=== PATIENT | female | born 1960 | race Caucasian/White ===

== ENCOUNTER → 2017-01-31 | Outpatient (REF) | payer OTHER ==
[~2017-01-31] MED LIST: ASPI81TA85 PO
[2017-01-31 11:49] LABS: ALBUMIN 3.9 GM/DL (3.2-5.2); ALBUMIN/GLOBULIN RATIO 1.05 (1.00-1.93); ALKALINE PHOSPHATASE 134 U/L (45-117); ALT/SGPT 33 U/L (12-78); ANION GAP 8 MEQ/L (8-16); AST/SGOT 20 U/L (15-37); BILIRUBIN,TOTAL 0.3 MG/DL (0.2-1.0); BLOOD UREA NITROGEN 19 MG/DL (7-18); CALCIUM LEVEL 9.1 MG/DL (8.5-10.1); CARBON DIOXIDE LEVEL 29 MEQ/L (21-32); CHLORIDE LEVEL 107 MEQ/L (98-107); CHOLESTEROL LEVEL 263 MG/DL (<200); CREATININE FOR GFR 0.97 MG/DL (0.55-1.02); GLOMERULAR FILTRATION RATE > 60.0 (>51); GLUCOSE, FASTING 76 MG/DL (70-105); POTASSIUM SERUM 4.4 MEQ/L (3.5-5.1); SODIUM LEVEL 144 MEQ/L (136-145); TOTAL PROTEIN 7.6 GM/DL (6.4-8.2); TRIGLYCERIDES LEVEL 169 MG/DL (<150)
[2017-01-31 12:14] LABS: MEAN CORPUSCULAR HEMOGLOBIN 32.6 pg (27.0-33.0); MEAN CORPUSCULAR HGB CONC 34.6 g/dl (32.0-36.5); MEAN CORPUSCULAR VOLUME 94.2 fl (80.0-96.0); RED CELL DISTRIBUTION WIDTH 12.2 % (11.5-14.5); WHITE BLOOD COUNT 5.4 K/mm3 (4.0-10.0)
== END ==
LOC: M SFHCLERA 08:52
PROVIDERS: ATTEND Family Medicine
DX: Z00.00 Encounter for general adult medical examination without abnormal findings (principal)

== ENCOUNTER 2017-12-21 07:28 | Day surgery (SDC) | payer OTHER ==
[~2017-12-21 07:28] MED LIST changes: +ACETAMINOPHEN 325 MG TAB PO; -ASPI81TA85 PO; +MIDAZOLAM INJ 2 MG/2 ML VIAL (J2250) As Ordered; +PHENYLEPHRINE HCL 10 % OPHTH. SOL 5ML OD; +PROPARACAINE 0.5% OPHTH SOL 15ML OD; +fentaNYL 100 MCG/2 ML INJECTION (J3010) As Ordered
[2017-12-21] MEDS ORDERED: PHENYLEPHRINE 2.5% OPHTH SOL 2ML As Ordered (07:37)
[2017-12-21] MEDS ORDERED: OFLOXACIN 0.3 % (OCUFLOX) OPTH SOL 5ML As Ordered (07:37)
[2017-12-21] MEDS ORDERED: CYCLOPENTOLATE 2% OPHTH SOLN 2ML BTL As Ordered (07:37)
[2017-12-21] MEDS ORDERED: TROPICAMIDE 1% OPHTH SOLN 2ML As Ordered (07:38)
[2017-12-21] MEDS: LIDOCAINE 3.5 % 1ML OPHTH TOPICAL GEL OU (07:47)
[2017-12-21] MEDS: PHENYLEPHRINE 2.5% OPHTH SOL 2ML OD (07:52)
[2017-12-21] MEDS: OFLOXACIN 0.3 % (OCUFLOX) OPTH SOL 5ML OD (07:52)
[2017-12-21] MEDS: TROPICAMIDE 1% OPHTH SOLN 2ML OD (07:54)
[2017-12-21] MEDS: CYCLOPENTOLATE 2% OPHTH SOLN 2ML BTL OD (07:54)
[2017-12-21] MEDS: POVIDONE-IODINE 5% OPHTH PREP SOL 30ML As Ordered (08:37)
[2017-12-21] MEDS: BSS with VANC/TOB/EPI for EYE CASES IR (08:43)
[2017-12-21] MEDS: TRYPAN BLUE 0.06 % 2.25 ML OPHTH SYR (VISIONBLUE) As Ordered (08:43)
[2017-12-21] MEDS: TRIAMCINOLONE PRES FR 40 MG/ML 1ML(TRIESENCE)(OR EYE ONLY)(J3300 PER 1MG) As Ordered (08:45)
[2017-12-21] MEDS: HEALON DUET (HEALON 10MG/ML 0.55ML & HEALON ENDOCOAT 30MG/ML 0.85ML) As Ordered ×2 (08:45→08:56)
[2017-12-21] MEDS: LIDOCAINE 1% SDV 5 ML VIAL As Ordered (08:45)
[2017-12-21] MEDS: MOXIFLOXACIN IN BSS 0.25MG/0.25ML INTRACAMERAL INJ (OR EYE ONLY)(J2280) As Ordered (08:46)
[2017-12-21] MEDS: BALANCED SALT IRRIGATION SOL 500ML GLASS BOTTLE (FOR OR EYE COMPOUND) As Ordered (09:00)
[2017-12-21] MEDS ORDERED: KETOROLAC 0.5% OPHTH SOLN OD (09:30)
[2017-12-21] MEDS ORDERED: TRIMETHOBENZAMIDE 300 MG CAP PO (09:30)
[2017-12-21] MEDS: AcetaZOLAMIDE 500 MG ER CAP PO (09:40)
== END 2017-12-21 10:05 | disposition home or self-care (01) ==
LOC: M SDC 07:28
DX: H26.101 Unspecified traumatic cataract, right eye (principal); H21.41 Pupillary membranes, right eye; H21.501 Unspecified adhesions of iris, right eye; E78.2 Mixed hyperlipidemia; M54.5 Low back pain; J30.9 Allergic rhinitis, unspecified; R00.2 Palpitations; Z87.891 Personal history of nicotine dependence; Z98.51 Tubal ligation status; Z86.19 Personal history of other infectious and parasitic diseases; Z78.0 Asymptomatic menopausal state
CPT/HCPCS: 66982

== ENCOUNTER 2018-04-12 10:03 | Day surgery (SDC) | payer OTHER ==
[~2018-04-12 10:03] MED LIST changes: -MIDAZOLAM INJ 2 MG/2 ML VIAL (J2250) As Ordered; -PHENYLEPHRINE HCL 10 % OPHTH. SOL 5ML OD; +PHENYLEPHRINE HCL 10 % OPHTH. SOL 5ML OS; -PROPARACAINE 0.5% OPHTH SOL 15ML OD; -fentaNYL 100 MCG/2 ML INJECTION (J3010) As Ordered
[2018-04-12] MEDS ORDERED: TROPICAMIDE 1% OPHTH SOLN 2ML As Ordered (10:07)
[2018-04-12] MEDS ORDERED: CYCLOPENTOLATE 2% OPHTH SOLN 2ML BTL As Ordered (10:07)
[2018-04-12] MEDS ORDERED: PHENYLEPHRINE 2.5% OPHTH SOL 2ML As Ordered (10:07)
[2018-04-12] MEDS ORDERED: OFLOXACIN 0.3 % (OCUFLOX) OPTH SOL 5ML As Ordered (10:07)
[2018-04-12] MEDS: PHENYLEPHRINE 2.5% OPHTH SOL 2ML OS (10:35)
[2018-04-12] MEDS: OFLOXACIN 0.3 % (OCUFLOX) OPTH SOL 5ML OS (10:35)
[2018-04-12] MEDS: CYCLOPENTOLATE 2% OPHTH SOLN 2ML BTL OS (10:35)
[2018-04-12] MEDS: TROPICAMIDE 1% OPHTH SOLN 2ML OS (10:35)
[2018-04-12] MEDS: LIDOCAINE 3.5 % 1ML OPHTH TOPICAL GEL OU (10:35)
[2018-04-12] MEDS ORDERED: PROPOFOL 200 MG/20 ML VIAL As Ordered (10:37)
[2018-04-12] MEDS ORDERED: fentaNYL 100 MCG/2 ML INJECTION (J3010) As Ordered (10:37)
[2018-04-12] MEDS ORDERED: MIDAZOLAM INJ 2 MG/2 ML VIAL (J2250) As Ordered (11:02)
[2018-04-12] MEDS: POVIDONE-IODINE 5% OPHTH PREP SOL 30ML As Ordered (11:22)
[2018-04-12] MEDS: LIDOCAINE 1% SDV 5 ML VIAL As Ordered (11:22)
[2018-04-12] MEDS: HEALON DUET (HEALON 10MG/ML 0.55ML & HEALON ENDOCOAT 30MG/ML 0.85ML) As Ordered (11:22)
[2018-04-12] MEDS: BSS with VANC/TOB/EPI for EYE CASES IR (11:29)
[2018-04-12] MEDS: MOXIFLOXACIN IN BSS 0.25MG/0.25ML INTRACAMERAL INJ (OR EYE ONLY)(J2280) As Ordered (11:29)
[2018-04-12] MEDS: TRIAMCINOLONE PRES FR 40 MG/ML 1ML(TRIESENCE)(OR EYE ONLY)(J3300 PER 1MG) As Ordered (11:29)
[2018-04-12] MEDS ORDERED: AcetaZOLAMIDE 500 MG ER CAP As Ordered (11:51)
[2018-04-12] MEDS: AcetaZOLAMIDE 500 MG ER CAP PO (12:05)
[2018-04-12] MEDS ORDERED: TRIMETHOBENZAMIDE 300 MG CAP PO (12:30)
== END 2018-04-12 12:30 | disposition home or self-care (01) ==
LOC: M SDC 10:03
DX: H25.9 Unspecified age-related cataract (principal); Z87.891 Personal history of nicotine dependence
CPT/HCPCS: 66984

== ENCOUNTER 2018-10-27 10:56 | Emergency (ER) | payer OTHER ==
[2018-10-27 11:33] LABS: BASO # 0.1 10^3/uL (0.0-0.2); BASO % 0.5 % (0.0-1.0); EOS # 0.1 10^3/uL (0.0-0.50); EOS % 0.7 % (0.0-3.0); HEMATOCRIT 43.9 % (36.0-47.0); HEMOGLOBIN 14.8 g/dl (12.0-15.5); IMMATURE GRANULOCYTE % 0.4 % (0-3.0); LYMPH # 1.3 10^3/uL (1.5-4.5); LYMPH % 11.5 % (24.0-44.0); MEAN CORPUSCULAR HEMOGLOBIN 32.3 pg (27.0-33.0); MEAN CORPUSCULAR HGB CONC 33.7 g/dl (32.0-36.5); MEAN CORPUSCULAR VOLUME 95.9 fl (80.0-96.0); MONO # 0.8 10^3/uL (0.0-0.8); MONO % 6.8 % (0.0-5.0); NEUTROPHILS # 8.9 10^3/uL (1.8-7.7); NEUTROPHILS % 80.1 % (36.0-66.0); PLATELET COUNT, AUTOMATED 279 10^3/uL (150-450); RED BLOOD COUNT 4.58 10^6/uL (4.00-5.40); RED CELL DISTRIBUTION WIDTH 12.4 % (11.5-14.5); WHITE BLOOD COUNT 11.2 10^3/uL (4.0-10.0)
[2018-10-27] MEDS: NS 500 ML IV (11:42)
[2018-10-27 11:44] LABS: ALBUMIN 3.9 GM/DL (3.2-5.2); ALBUMIN/GLOBULIN RATIO 0.95 (1.00-1.93); ALKALINE PHOSPHATASE 122 U/L (45-117); ALT/SGPT 37 U/L (12-78); ANION GAP 8 MEQ/L (8-16); AST/SGOT 19 U/L (7-37); BILIRUBIN,DIRECT < 0.1 MG/DL (0.0-0.2); BILIRUBIN,TOTAL 0.3 MG/DL (0.2-1.0); BLOOD UREA NITROGEN 15 MG/DL (7-18); CALCIUM LEVEL 9.1 MG/DL (8.8-10.2); CARBON DIOXIDE LEVEL 27 MEQ/L (21-32); CHLORIDE LEVEL 106 MEQ/L (98-107); CREATININE FOR GFR 1.21 MG/DL (0.55-1.30); GLOMERULAR FILTRATION RATE 48.3 (>45); GLUCOSE, FASTING 132 MG/DL (70-100); LIPASE 233 U/L (73-393); SODIUM LEVEL 141 MEQ/L (136-145)
[2018-10-27 11:53] LABS: BILIRUBIN, URINE MANUAL NEGATIVE (NEGATIVE); BLOOD URINE MANUAL RFX POSITIVE (NEGATIVE); GLUCOSE, URINE (UA) MANUAL NEGATIVE (NEGATIVE); KETONE, URINE MANUAL NEGATIVE (NEGATIVE); NITRITE, URINE MANUAL RFX NEGATIVE (NEGATIVE); PROTEIN, URINE MANUAL REFLEX NEGATIVE (NEGATIVE); UROBILINOGEN, URINE MANUAL NORMAL (NORMAL)
[2018-10-27 11:54] LABS: BACTERIA, URINE SMALL AMOUNT; HYALINE CAST, URINE NONE SEEN /lpf (0-1); MICROSCOPIC EXAM UNSPUN; SQUAMOUS EPITHELIAL CELL URINE SMALL AMOUNT /hpf (SMALL AMT)
[2018-10-27] MEDS ORDERED: DEXTROSE 50% 50 ML SYRINGE As Ordered (14:02)
== END 2018-10-27 14:48 | disposition home or self-care (01) ==
LOC: M ED 10:56
DX: N20.1 Calculus of ureter (principal); E78.5 Hyperlipidemia, unspecified; Z87.891 Personal history of nicotine dependence
CPT/HCPCS: 74176

== ENCOUNTER → 2018-11-02 | Outpatient (REF) | payer OTHER ==
[~2018-11-02] MED LIST changes: -ACETAMINOPHEN 325 MG TAB PO; +ASPI81TA85 PO; +FLOM0.4C39 PO; +MULT1TAB10 PO; +NORCOTAB PO; -PHENYLEPHRINE HCL 10 % OPHTH. SOL 5ML OS; +ZOFR4TAB14 PO
[2018-11-02 17:57] LABS: APPEARANCE, URINE HAZY (CLEAR); BACTERIA, URINE AUTO 1+ (NEGATIVE); BILIRUBIN, URINE AUTO NEGATIVE (NEGATIVE); BLOOD, URINE BLOOD NEGATIVE (NEGATIVE); COLOR, URINE YELLOW (YELLOW); GLUCOSE, URINE (UA) AUTO NEGATIVE (NEGATIVE); KETONE, URINE AUTO NEGATIVE (NEGATIVE); LEUKOCYTE ESTERASE, URINE AUTO 3+ (NEGATIVE); MUCUS, URINE SMALL (NEGATIVE); NITRITE, URINE AUTO NEGATIVE (NEGATIVE); PROTEIN, URINE AUTO NEGATIVE (NEGATIVE); RBC, URINE AUTO 1 /HPF (0-3); SPECIFIC GRAVITY URINE AUTO 1.016 (1.002-1.035); SQUAMOUS EPITHELIAL CELL UR AU 2 /HPF (0-6); UROBILINOGEN, URINE AUTO 0.2 mg/dL (0.0-2.0); WBC, URINE AUTO 16 /HPF (0-3)
== END ==
LOC: M SMT 17:07
PROVIDERS: ATTEND Nurse Practitioner Women's Health
DX: N13.2 Hydronephrosis with renal and ureteral calculous obstruction (principal)

== ENCOUNTER → 2019-03-20 | Outpatient (CLI) | payer OTHER ==
[~2019-03-20] MED LIST changes: +HYDR-3715 PO; -NORCOTAB PO
--- NOTE | 2019-03-21 03:12 | REP ---
Clinical: Left shoulder pain. Technique: Internal rotation, external rotation, and Y view of the left shoulder. Findings: Mild generalized age-related changes include subtle cortical irregularity and very minimal spurring at the acromioclavicular joint. The humeral joint appears intact and normal. Subacromial space measures 9 mm. No periarticular calcifications or loose bodies identified. Impression: Generalized age-related changes. Electronically Signed by Nabeel Bowden MD 03/21/2019 03:04 A
--- NOTE | 2019-03-21 03:18 | REP ---
Clinical: Left shoulder pain. Technique: AP and lateral views of the left humerus. Findings: Osseous structures, associated joint spaces, and surrounding soft tissues are normal for age. No acute fracture dislocation. Impression: No obvious acute fracture or dislocation. Electronically Signed by Nabeel Bowden MD 03/21/2019 03:09 A
== END ==
LOC: M RAD 12:25
PROVIDERS: ATTEND Nurse Practitioner Family
DX: M79.622 Pain in left upper arm (principal); M25.712 Osteophyte, left shoulder

== ENCOUNTER → 2019-05-09 | Outpatient (CLI) | payer OTHER ==
--- NOTE | 2019-05-09 10:31 | REPMRS ---
Patient History The patient states she had a clinical breast exam in 04/2019. Patient is postmenopausal. Family history of colorectal cancer at age 50 or over in paternal grandfather, colorectal cancer at age 50 or over in paternal uncle, unknown cancer at age 50 or over in paternal aunt, breast cancer at age 50 or over in sister. Took hormonal contraceptives for 5 years. Digital Woman Screen Mammo: May 09, 2019 - Exam #: [id number] Bilateral CC and MLO view(s) were taken. Technologist: Ruthann Holland, Technologist Prior study comparison: October 08, 2014, bilateral bilat screen digital mammo, performed at [facility] ([facility] FINDINGS: There are scattered fibroglandular densities. There has been no change in the appearance of the mammogram from the prior studies. There is a mild amount of scattered fibroglandular density which is fairly symmetric. There is no interval development of dominant mass, architectural distortion, or grouped microcalcification suggestive of malignancy. 3-D tomosynthesis shows no additional findings. Assessment: BI-RADS/ACR category 1 mammogram. Negative Mammogram. Recommendation Routine screening mammogram of both breasts in 1 year (for women over age 40). This patient's Lifetime Breast Cancer Risk is estimated at 11.8 %. This mammogram was interpreted with the aid of an FDA-approved computer-aided dectection system. Electronically Signed By: Terry Cortes MD 05/09/19 [id number]
== END ==
LOC: M WHC 09:35
PROVIDERS: ATTEND Nurse Practitioner Family
DX: Z12.31 Encounter for screening mammogram for malignant neoplasm of breast (principal); Z78.0 Asymptomatic menopausal state; Z80.0 Family history of malignant neoplasm of digestive organs; Z80.3 Family history of malignant neoplasm of breast; Z92.0 Personal history of contraception

== ENCOUNTER → 2019-05-09 | Outpatient (REF) | payer OTHER ==
[2019-05-15 14:31] LABS: HPV HYBRID CAPTURE II Negative (Negative)
== END ==
LOC: M SFHCWAGY 09:50
PROVIDERS: ATTEND Nurse Practitioner Women's Health
DX: Z12.4 Encounter for screening for malignant neoplasm of cervix (principal)

== ENCOUNTER → 2019-05-29 | Outpatient (REF) | payer MEDICAID ==
[~2019-05-29] MED LIST changes: +B-12100T2 PO; +CARD180C4 PO; +METO1TAB87 PO; +MULTCAP PO
[2019-05-29 16:40] LABS: ALBUMIN 3.8 GM/DL (3.2-5.2); BILIRUBIN,TOTAL 0.3 MG/DL (0.2-1.0); CALCIUM LEVEL 9.1 MG/DL (8.8-10.2); CREATININE FOR GFR 1.12 MG/DL (0.55-1.30); FREE T4 0.91 NG/DL (0.76-1.46); GLOMERULAR FILTRATION RATE 52.8 (>45); THYROID STIMULATING HORMONE 1.59 uIU/ML (0.358-3.740); TOTAL PROTEIN 7.2 GM/DL (6.4-8.2)
== END ==
LOC: M SFHCPLAZ 14:17
PROVIDERS: ATTEND Nurse Practitioner Family
DX: R60.0 Localized edema (principal)

== ENCOUNTER → 2019-05-30 | Outpatient (CLI) | payer MEDICAID ==
[~2019-05-30] MED LIST changes: -B-12100T2 PO; -CARD180C4 PO; -METO1TAB87 PO; -MULTCAP PO
--- NOTE | 2019-05-30 11:00 | REP ---
Bilateral lower extremity Duplex Doppler venous ultrasound: Real time compression and duplex Doppler interrogation of the bilateral lower extremity deep venous system is performed. Bilaterally, the common femoral, superficial femoral and popliteal veins are fully compressible with transducer pressure and demonstrate normal spontaneous and phasic flow, without evidence of deep venous thrombosis. Impression: No evidence of deep venous thrombosis of the bilateral lower extremity femoral popliteal venous system. Incidental note is made of a left popliteal cyst measuring 3.7 x 0.7 x 1.4 cm. Electronically Signed by Shay De La Garza MD 05/30/2019 10:51 A
== END ==
LOC: M RAD 09:53
PROVIDERS: ATTEND Nurse Practitioner Family
DX: R60.0 Localized edema (principal)

== ENCOUNTER 2019-06-03 02:13 | Emergency (ER) | payer MEDICAID ==
[~2019-06-03] VITALS: Ht 162.6 cm; Wt 90.9 kg
[2019-06-03 04:22] LABS: BASO # 0.1 10^3/uL (0.0-0.2); BASO % 0.6 % (0.0-1.0); EOS # 0.1 10^3/uL (0.0-0.50); EOS % 0.9 % (0.0-3.0); HEMATOCRIT 38.8 % (36.0-47.0); HEMOGLOBIN 12.9 g/dl (12.0-15.5); LYMPH # 2.1 10^3/uL (1.5-4.5); LYMPH % 24.6 % (24.0-44.0); MEAN CORPUSCULAR HGB CONC 33.2 g/dl (32.0-36.5); MEAN CORPUSCULAR VOLUME 93.3 fl (80.0-96.0); MONO # 0.9 10^3/uL (0.0-0.8); MONO % 10.8 % (0.0-5.0); NEUTROPHILS # 5.4 10^3/uL (1.8-7.7); NEUTROPHILS % 62.9 % (36.0-66.0); PLATELET COUNT, AUTOMATED 245 10^3/uL (150-450); RED BLOOD COUNT 4.16 10^6/uL (4.00-5.40); WHITE BLOOD COUNT 8.6 10^3/uL (4.0-10.0)
[2019-06-03 04:38] LABS: CALCIUM LEVEL 8.5 MG/DL (8.8-10.2); CK-MB VALUE MASS 4.8 NG/ML (<3.6); CREATININE FOR GFR 1.18 MG/DL (0.55-1.30); FREE THYROXINE INDEX 2.7 % (1.3-4.8); GLOMERULAR FILTRATION RATE 49.7 (>45); MB/CK RELATIVE INDEX 2.74 (< OR =4); POTASSIUM SERUM 3.9 MEQ/L (3.5-5.1); THYROID STIMULATING HORMONE 3.19 uIU/ML (0.358-3.740); THYROXINE (T4) 8.6 UG/DL (4.5-12.0); TROPONIN I 1.07 NG/ML (< 0.10)
[2019-06-03] MEDS ORDERED: HEPARIN DRIP 25,000 UNITS in APPROPRIATE DILUENT 1 EA IV SCH (05:02)
[2019-06-03] MEDS ORDERED: CLOPIDOGREL 300 MG TAB (PLAVIX) PO STA (05:02)
[2019-06-03] MEDS ORDERED: HEPARIN SOD (PORCINE) 5000 UNITS/ML VIAL IV ONE (05:15)
[2019-06-03] MEDS ORDERED: ASPIRIN 325 MG TAB PO ONE (05:15)
[2019-06-03 05:28] LABS: INR 1.01
[2019-06-03 05:29] LABS: PARTIAL THROMBOPLASTIN TIME 31.3 SECONDS (25.0-38.4)
[2019-06-03] MEDS ORDERED: METOPROLOL TART 25 MG TABLET As Ordered ONE (05:39)
[2019-06-03 05:42] VITALS: BP 115/66
[2019-06-03] MEDS ORDERED: METOPROLOL TART 25 MG TABLET PO ONE (05:45)
[2019-06-03 06:15] VITALS: BP 109/69
--- NOTE | 2019-06-03 06:41 | ECGEPIP ---
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
--- NOTE | 2019-06-03 06:42 | ECGEPIP ---
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
== END 2019-06-03 06:31 | disposition short-term general hospital (02) ==
LOC: M ED 02:13
DX: I21.4 Non-ST elevation (NSTEMI) myocardial infarction (principal); I47.1 Supraventricular tachycardia; E78.5 Hyperlipidemia, unspecified; F41.9 Anxiety disorder, unspecified; M54.9 Dorsalgia, unspecified; F17.200 Nicotine dependence, unspecified, uncomplicated

== ENCOUNTER → 2020-06-27 | Outpatient (CLI) | payer OTHER ==
[~2020-06-27] MED LIST changes: -ASPI81TA85 PO; +ASPI81TA86 PO; +B-12100T2 PO; +CARD180C4 PO; +FURO20TA2 PO; +K-TA10TA2 PO; +LIDO5DIS41 TOP; +METO1TAB87 PO; +MULTCAP PO
--- NOTE | 2020-07-15 10:41 | REPMRS ---
Patient History The patient states she had a clinical breast exam in June 2020. Patient is postmenopausal. Family history of colorectal cancer at age 50 or over in paternal grandfather, colorectal cancer at age 50 or over in paternal uncle, unknown cancer at age 50 or over in paternal aunt, breast cancer at age 50 or over in sister. Took hormonal contraceptives for 5 years. Digital Woman Screen Mammo: June 27, 2020 - Exam #: [id number] Bilateral CC and MLO view(s) were taken. Technologist: Hollie Shah, Technologist Prior study comparison: May 09, 2019, bilateral digital woman screen mammo, performed at [facility]. October 08, 2014, bilateral bilat screen digital mammo, performed at [facility] ([facility]). FINDINGS: There are scattered fibroglandular densities. The Volpara volumetric breast density category is:B. There has been no change in the appearance of the mammogram from the prior studies. There is a mild amount of scattered fibroglandular density which is fairly symmetric. There is no interval development of dominant mass, architectural distortion, or grouped microcalcification suggestive of malignancy. 3-D tomosynthesis shows no additional findings. Assessment: BI-RADS/ACR category 1 mammogram. Negative Mammogram. Recommendation Routine screening mammogram of both breasts in 1 year (for women over age 40). This patient's Lifetime Breast Cancer Risk is estimated at 11.0 %. This mammogram was interpreted with the aid of an FDA-approved computer-aided dectection system. Electronically Signed By: Terry Cortes MD 07/15/20 [id number]
== END ==
LOC: M WHC 16:09
PROVIDERS: ATTEND Nurse Practitioner Women's Health
DX: Z12.31 Encounter for screening mammogram for malignant neoplasm of breast (principal); Z78.0 Asymptomatic menopausal state; Z80.3 Family history of malignant neoplasm of breast

== ENCOUNTER → 2020-06-27 | Outpatient (REF) | payer OTHER | LOC: M SFHCWAGY 12:38 | PROVIDERS: ATTEND Nurse Practitioner Women's Health | DX: Z12.4 Encounter for screening for malignant neoplasm of cervix (principal) ==

== ENCOUNTER 2020-07-13 08:43 | Emergency (ER) | payer OTHER ==
[~2020-07-13] VITALS: Ht 157.5 cm; Wt 91.3 kg
[~2020-07-13 08:43] MED LIST changes: -FURO20TA2 PO; -K-TA10TA2 PO; -LIDO5DIS41 TOP
[2020-07-13] MEDS ORDERED: K-TA10TA2 PO (08:54)
[2020-07-13] MEDS ORDERED: FURO20TA2 PO ×2 (08:54)
[2020-07-13] MEDS ORDERED: NS 1,000 ML IV ONE (09:15)
[2020-07-13 09:35] LABS: BASO % 0.8 % (0.0-1.0); EOS # 0.1 10^3/uL (0.0-0.5); EOS % 1.9 % (0.0-3.0); HEMATOCRIT 43.2 % (36.0-47.0); HEMOGLOBIN 14.3 g/dl (12.0-15.5); LYMPH # 1.4 10^3/uL (1.5-5.0); LYMPH % 27.1 % (24.0-44.0); MEAN CORPUSCULAR HEMOGLOBIN 31.5 pg (27.0-33.0); MEAN CORPUSCULAR HGB CONC 33.1 g/dl (32.0-36.5); MEAN CORPUSCULAR VOLUME 95.2 fl (80.0-96.0); MONO # 0.6 10^3/uL (0.0-0.8); NEUTROPHILS # 3.1 10^3/uL (1.5-8.5); PLATELET COUNT, AUTOMATED 266 10^3/uL (150-450); RED BLOOD COUNT 4.54 10^6/uL (4.00-5.40); WHITE BLOOD COUNT 5.2 10^3/uL (4.0-10.0)
[2020-07-13] MEDS ORDERED: KETOROLAC 30 MG/ML 1ML VIAL IV ONE (09:45)
[2020-07-13 10:01] LABS: ALBUMIN 3.7 GM/DL (3.2-5.2); ALT/SGPT 33 U/L (12-78); BILIRUBIN,DIRECT < 0.1 MG/DL (0.0-0.2); BILIRUBIN,TOTAL 0.3 MG/DL (0.2-1.0); BLOOD UREA NITROGEN 14 MG/DL (7-18); CALCIUM LEVEL 9.2 MG/DL (8.8-10.2); CARBON DIOXIDE LEVEL 29 MEQ/L (21-32); CHLORIDE LEVEL 107 MEQ/L (98-107); CPK CREATINE PHOSPHOKINASE 119 U/L (26-192); CREATININE FOR GFR 1.22 MG/DL (0.55-1.30); GLOMERULAR FILTRATION RATE 47.5 (>45); GLUCOSE, FASTING 89 MG/DL (70-100); LIPASE 275 U/L (73-393); MB/CK RELATIVE INDEX 0.84 (< OR =4); SODIUM LEVEL 143 MEQ/L (136-145); TOTAL PROTEIN 7.4 GM/DL (6.4-8.2); TROPONIN I < 0.02 NG/ML (< 0.10)
[2020-07-13] MEDS ORDERED: LIDO5DIS41 TOP (12:07)
[2020-07-13 12:15] VITALS: BP 107/61
[2020-07-13] MEDS ORDERED: LIDOCAINE 5% (LIDODERM) PATCH TD ONE (12:15)
[2020-07-13] MEDS ORDERED: **NOTE PATIENT COMMENT** MISC XX SCH (21:00)
--- NOTE | 2020-08-12 10:48 | REP ---
CT OF THE ABDOMEN AND PELVIS WITHOUT CONTRAST CLINICAL: Left flank pain. TECHNIQUE: Axial noncontrast images from the lung bases to the pubic symphysis with coronal and sagittal reformations. FINDINGS: Lung bases are clear. Mild fatty infiltration to the liver suggested. Spleen, pancreas, gallbladder, bilateral adrenal glands, and kidneys are normal. Specifically, no perinephric stranding, hydroureteronephrosis, intrarenal or obstructing ureteral calculi are appreciated. The enteric system is without obstruction or acute inflammatory process. Terminal ileum and appendix are identified in the right lower quadrant. Pelvis demonstrates normal bladder and age-appropriate uterus/adnexa. No pelvic fluid. No ascites. No free air. No adenopathy. Abdominal aorta without aneurysm. Musculoskeletal structures are without acute osseous abnormality. IMPRESSION: * No acute abdominopelvic pathology appreciated. * Normal appearance to the urinary tract system. * No ascites, focal inflammatory stranding, or adenopathy. MTDD
== END 2020-07-13 12:30 | disposition home or self-care (01) ==
LOC: M ED 08:43
DX: R10.9 Unspecified abdominal pain (principal); R11.0 Nausea; I47.1 Supraventricular tachycardia; I25.2 Old myocardial infarction; Z79.899 Other long term (current) drug therapy; Z87.891 Personal history of nicotine dependence
CPT/HCPCS: 74176; 80047; 80048; 80076; 81001; 82550; 82553; 83690; 85025; 96361; 96374; 99284; J1885

== ENCOUNTER → 2020-10-16 | Outpatient (CLI) | payer SELFPAY ==
[~2020-10-16] MED LIST changes: +FURO20TA2 PO; +K-TA10TA2 PO; +LIDO5DIS41 TOP
== END ==
LOC: M LABSMTC 14:14
PROVIDERS: ATTEND Pediatrics
DX: Z20.828 Contact with and (suspected) exposure to other viral communicable diseases (principal)

== ENCOUNTER → 2021-02-11 | Outpatient (REF) | payer OTHER ==
[2021-02-11 14:06] LABS: BASO # 0.1 10^3/uL (0.0-0.2); BASO % 0.9 % (0.0-1.0); EOS # 0.1 10^3/uL (0.0-0.5); EOS % 1.7 % (0.0-3.0); HEMATOCRIT 45.1 % (36.0-47.0); HEMOGLOBIN 14.8 g/dl (12.0-15.5); LYMPH # 1.8 10^3/uL (1.5-5.0); LYMPH % 30.2 % (24.0-44.0); MEAN CORPUSCULAR HGB CONC 32.8 g/dl (32.0-36.5); MEAN CORPUSCULAR VOLUME 97.4 fl (80.0-96.0); MONO # 0.8 10^3/uL (0.0-0.8); MONO % 13.6 % (2.0-8.0); NEUTROPHILS # 3.1 10^3/uL (1.5-8.5); NEUTROPHILS % 53.4 % (36.0-66.0); PLATELET COUNT, AUTOMATED 276 10^3/uL (150-450); RED BLOOD COUNT 4.63 10^6/uL (4.00-5.40); WHITE BLOOD COUNT 5.8 10^3/uL (4.0-10.0)
[2021-02-11 14:41] LABS: ALBUMIN 4.1 GM/DL (3.2-5.2); BILIRUBIN,TOTAL 0.3 MG/DL (0.2-1.0); CALCIUM LEVEL 9.4 MG/DL (8.8-10.2); CHOLESTEROL RISK RATIO 4.066 (<5); CREATININE FOR GFR 1.13 MG/DL (0.55-1.30); FREE T4 0.89 NG/DL (0.76-1.46); GLOMERULAR FILTRATION RATE 51.9 (>45); POTASSIUM SERUM 4.1 MEQ/L (3.5-5.1); THYROID STIMULATING HORMONE 2.21 uIU/ML (0.358-3.740); TOTAL PROTEIN 7.5 GM/DL (6.4-8.2)
== END ==
LOC: M SFHCPLAZ 09:40
PROVIDERS: ATTEND Physician Assistant Medical
DX: E78.2 Mixed hyperlipidemia (principal); F32.0 Major depressive disorder, single episode, mild; Z00.00 Encounter for general adult medical examination without abnormal findings

== ENCOUNTER → 2021-07-09 | Outpatient (CLI) | payer OTHER ==
[2021-07-09 11:30] LABS: CALCIUM LEVEL 9.3 MG/DL (8.8-10.2); CREATININE FOR GFR 1.09 MG/DL (0.55-1.30); POTASSIUM SERUM 4.3 MEQ/L (3.5-5.1)
[2021-07-09 11:31] LABS: ALBUMIN 3.6 GM/DL (3.2-5.2); BILIRUBIN,TOTAL 0.4 MG/DL (0.2-1.0); CHOLESTEROL RISK RATIO 4.019 (<5); TOTAL PROTEIN 7.2 GM/DL (6.4-8.2)
[2021-07-09 15:47] LABS: HEMOGLOBIN A1c 5.5 %
== END ==
LOC: M PLALAB 09:05
PROVIDERS: ATTEND Physician Assistant Medical
DX: E78.2 Mixed hyperlipidemia (principal); Z68.34 Body mass index [BMI] 34.0-34.9, adult

== ENCOUNTER → 2021-08-19 | Outpatient (CLI) | payer OTHER ==
--- NOTE | 2021-08-19 10:08 | REPMRS ---
Patient History The patient states she has not had a clinical breast exam in over a year. Patient is postmenopausal. Family history of colorectal cancer at age 50 or over in paternal grandfather, colorectal cancer at age 50 or over in paternal uncle, unknown cancer at age 50 or over in paternal aunt, breast cancer at age 50 or over in sister. Took hormonal contraceptives for 5 years. 10 lb intentional weight loss. Patient states no breast complaints today. Patient has signed MRS History Sheet. Digital Woman Screen Mammo: August 19, 2021 - Exam #: [id number] Bilateral CC and MLO view(s) were taken. Technologist: RT Power Prior study comparison: June 27, 2020, bilateral digital woman screen mammo performed at [facility]. May 09, 2019, bilateral digital woman screen mammo performed at [facility]. FINDINGS: There are scattered fibroglandular densities. The Volpara volumetric breast density category is:B. There is a 4 mm possible saima density in the upper-outer quadrant of the left breast. This may be a intramammary lymph node. This merits further evaluation. There has been no other change in the appearance of the mammogram from the prior studies. There is a mild amount of scattered fibroglandular density which is fairly symmetric. There is no other interval development of dominant mass, architectural distortion, or grouped microcalcification suggestive of malignancy. 3-D tomosynthesis shows no additional findings. Assessment: BI-RADS/ACR category 0 mammogram, Incomplete: Need additional imaging evaluation and/or prior mammograms for comparison. Recommendation Ultrasound and special view mammogram of the left breast. This patient's [facility] Lifetime Breast Cancer Risk is estimated at 10.6 %. This mammogram was interpreted with the aid of an FDA-approved computer-aided dectection system. Electronically Signed By: Terry Cortes MD 08/19/21 2714
--- NOTE | 2021-08-19 10:22 | DEXAMM ---
INDICATION: POSTMENOPAUSAL BONE LOSS. COMPARISON: None. TECHNIQUE: Bone density was measured using dual-energy x-ray absorptionmetry (DEXA). FINDINGS: AP SPINE L1-L4 BMD 1.170 g/cm2 Young Adult T-Score -0.2 Age Matched Z-Score 1.2. LT FEMUR, TOTAL BMD 0.778 g/cm2 Young Adult T-Score -1.8 Age Matched Z-Score -0.7. LT NECK BMD 0.737 g/cm2 Young Adult T-Score -2.2 Age Matched Z-Score -0.8. RT FEMUR, TOTAL BMD 0.787 g/cm2 Young Adult T-Score -1.8 Age Matched Z-Score -0.7. RT NECK BMD 0.704 g/cm2 Young Adult T-Score -2.4 Age Matched Z-Score -1.0. IMPRESSION: There is normal bone density of the spine. There is low bone density of the left hip. There is low bone density of the right hip. FOLLOW-UP: Recommendation for the next bone density exam: 2 years. <Electronically signed by Terry Cortes > 08/19/21 [id number]
== END ==
LOC: M WHC 08:56
PROVIDERS: ATTEND Physician Assistant Medical
DX: R92.2 Inconclusive mammogram (principal); M85.851 Other specified disorders of bone density and structure, right thigh; M85.852 Other specified disorders of bone density and structure, left thigh

== ENCOUNTER → 2021-09-03 | Outpatient (CLI) | payer OTHER ==
[~2021-09-03] MED LIST changes: +ASPI325T59 PO; +ATOR1TAB21 PO; +VIAC1CHW PO; +VITMTA PO
== END ==
LOC: M LABSMTC 09:42
PROVIDERS: ATTEND Anesthesiology
DX: Z01.818 Encounter for other preprocedural examination (principal)

== ENCOUNTER → 2021-09-25 | Outpatient (CLI) | payer OTHER ==
--- NOTE | 2021-09-25 13:56 | REP ---
INDICATION: LEFT BREAST ADD VIEWS. COMPARISON: 08/19/2021, 06/27/2020, 05/09/2019. TECHNIQUE: Spot compression tomosynthesis views performed of the left breast, focused left breast ultrasound performed. FINDINGS: Today's additional images confirm the presence of a 4 mm smoothly marginated nodule in the upper outer quadrant of the left breast. Ultrasound of the upper-outer quadrant of the left breast demonstrates an oval hypoechoic nodule at 1 o'clock, which measures 7 x 5 x 3 mm, approximately 8 cm from the nipple. With elastography interrogation average KP a value is approximately 15. IMPRESSION: BIRADS/ACR category 4A, low level of suspicion for malignancy. Smoothly marginated nodule is confirmed in the upper outer quadrant of the left breast. By ultrasound in that region there is an oval hypoechoic nodule which could represent a complex cyst or solid nodule. Recommend ultrasound-guided biopsy and postprocedure mammogram. This mammogram was interpreted with the aid of an FDA-approved computer-aided detection system. The patient letter being requested is M4. RECOMMENDATION: Recommend ultrasound-guided biopsy as discussed above, with postprocedure mammogram left breast. <Electronically signed by Shay De La Garza > 09/25/21 3751
== END ==
LOC: M WHC 10:41
PROVIDERS: ATTEND Physician Assistant Medical
DX: N63.21 Unspecified lump in the left breast, upper outer quadrant (principal); Z78.0 Asymptomatic menopausal state; Z80.3 Family history of malignant neoplasm of breast
CPT/HCPCS: 76642; 77065; G0279

== ENCOUNTER 2021-10-19 08:17 | Outpatient (CLI) | payer OTHER ==
[~2021-10-19] VITALS: Ht 160 cm; Wt 79.0 kg
[~2021-10-19 08:17] MED LIST changes: +ALBUTEROL 90 MCG/ACT 8GM HFA INHALER INH PRN; +ALBUTEROL SULFATE 2.5 MG/0.5 ML INH NEB SOLN INH PRN; +EPINEPHrine INJ 1 MG/ML 1ML AMP IM PRN; +NS 1,000 ML IV SCH; +diphenhydrAMINE 50MG/ML VIAL (J1200) IV PRN; +methylPREDNISolone 125MG 2ML VIAL IV PRN
[2021-10-19] MEDS ORDERED: CASIRIVIMAB (REGN10933) 600 MG, IMDEVIMAB (REGN10987) 600 MG in NS 250 ML IV ONE (09:00)
[2021-10-19 09:22] VITALS: BP 108/66
[2021-10-19 09:52] VITALS: BP 101/60
[2021-10-19 10:22] VITALS: BP 100/67
[2021-10-19 11:22] VITALS: BP 99/64
[2021-10-20] MEDS ORDERED: AUGM875T28 PO (22:15)
[2021-10-20] MEDS ORDERED: AZIT-12 PO (22:16)
== END 2021-10-19 11:22 | disposition home or self-care (01) ==
LOC: M OPCLI4PR 08:17
PROVIDERS: ATTEND Family Medicine
DX: U07.1 COVID-19 (principal)

== ENCOUNTER 2021-10-20 17:42 | Emergency (ER) | payer OTHER ==
[~2021-10-20 17:42] MED LIST changes: -ALBUTEROL 90 MCG/ACT 8GM HFA INHALER INH PRN; -ALBUTEROL SULFATE 2.5 MG/0.5 ML INH NEB SOLN INH PRN; -EPINEPHrine INJ 1 MG/ML 1ML AMP IM PRN; -NS 1,000 ML IV SCH; -diphenhydrAMINE 50MG/ML VIAL (J1200) IV PRN; -methylPREDNISolone 125MG 2ML VIAL IV PRN
[2021-10-20] MEDS ORDERED: NS 1,000 ML IV ONE (18:20)
[2021-10-20] MEDS ORDERED: ONDANSETRON 4MG/2ML VIAL IV ONE (18:20)
[2021-10-20 18:36] LABS: BASO % 0.4 % (0.0-1.0); HEMATOCRIT 40.8 % (36.0-47.0); HEMOGLOBIN 13.6 g/dl (12.0-15.5); LYMPH # 1.6 10^3/uL (1.5-5.0); LYMPH % 30.8 % (24.0-44.0); MEAN CORPUSCULAR HEMOGLOBIN 31.5 pg (27.0-33.0); MEAN CORPUSCULAR HGB CONC 33.3 g/dl (32.0-36.5); MEAN CORPUSCULAR VOLUME 94.4 fl (80.0-96.0); MONO # 0.7 10^3/uL (0.0-0.8); MONO % 13.1 % (2.0-8.0); NEUTROPHILS # 2.8 10^3/uL (1.5-8.5); NEUTROPHILS % 55.3 % (36.0-66.0); PLATELET COUNT, AUTOMATED 172 10^3/uL (150-450); RED BLOOD COUNT 4.32 10^6/uL (4.00-5.40); WHITE BLOOD COUNT 5.1 10^3/uL (4.0-10.0)
[2021-10-20 18:45] LABS: ALBUMIN 3.1 GM/DL (3.2-5.2); BILIRUBIN,TOTAL 0.4 MG/DL (0.2-1.0); C REACTIVE PROTEIN QUANTITATIV 6.54 MG/DL (0.00-0.30); GLOMERULAR FILTRATION RATE 59.6 (>45); POTASSIUM SERUM 3.8 MEQ/L (3.5-5.1); TOTAL PROTEIN 6.8 GM/DL (6.4-8.2)
[2021-10-20 18:48] LABS: CK-MB VALUE MASS 3.6 NG/ML (<3.6); MB/CK RELATIVE INDEX 0.89 (< OR =4)
--- NOTE | 2021-10-20 19:26 | REP ---
INDICATION: Coronavirus workup. COMPARISON: Portable chest, 11/28/2019. TECHNIQUE: Upright AP portable chest image was obtained. FINDINGS: There is linear airspace disease in the left lung base consistent with atelectasis or pneumonia. There is no lobar consolidation or pleural effusion. The heart borders and mediastinum are normal. The upper abdominal bowel gas pattern is normal. There are no significant bony abnormalities of the chest. IMPRESSION: Nonspecific airspace disease in the left lung base consistent with atelectasis or pneumonia. <Electronically signed by Laron Duncan > 10/20/21 3903
--- OUTSIDE RECORDS SUMMARY | 2021-10-20 19:36 | CCD | Continuity of Care Document ---
Author Author Yanira DE LEON-C Organization Unknown Address [address] [place] [address] Phone [phone] Care Team Providers Care Laborer Concrete Plant Name Role Phone AngusJayne donovan Yadira AGUIRRE AUTM Laron Jewell PA-C AUTM [phone] Problems Active Problems Provider Date Pure hypercholesterolemia Milton De Leon MD Onset: 021 Social History Type Date Description Comments Sex Unknown ETOH Use Rarely consumes alcohol Tobacco Use Start: Unknown End: Unknown Patient is a former smoker pack a day Smoking Status Reviewed: 08/07/21 Patient is a former smoker pa ck a day Allergies and adverse reactions Description No Known Drug Allergies Medications Active Medications SIG Qnty Indications Ordering Provide r Date Cartia XT 180mg Caps ER 24HR Unknown Metoprolol Succinate ER 25mg Tablets ER 24HR Unknown Furosemide 20mg Tablets Unknown Potassium Chloride ER 10Meq Capsules ER Unknown Atorvastatin Calcium 20mg Tablets Unknown Viactiv Calcium Plus D 650-12.5-40mg-mcg Chewtabs 2 by mouth every day Unknown 0 000 Aspirin 325mg Tablets Unknown Preservision Areds Tablets 1 by mouth twice a day Unknown Multivitamin Adult Tablets Unknown History Medications No Active Medications Unknown 10/2021 - 07/29/2021 Immunizations Description No Information Available Vital Signs Date Vital Result Comment 06/25/2021 11:44am Height 63 inches 5'3" Weight 195.38 lb BMI (Body Mass Index) 34.6 kg/m2 07/03/2019 2:57pm Body Temperature 97.5 F Height 63 inches 5'3" Weight 198.25 lb BMI (Body Mass Index) 35.1 kg/m2 Results Description No Information Available Procedures Date Code Description Status 08/25/2021 23280 X-Ray Foot Complete Completed 07/27/2021 91110 X-Ray Foot Complete Completed 07/27/2021 38278 Apply Cast Short Leg Completed 07/03/2021 61300 X-Ray Foot Complete Completed 06/25/2021 32858 Office/Outpatient Established Mo d MDM 30-39 Min Completed 06/25/2021 64525 X-Ray Foot Complete Completed 06/25/2021 28157 FX Metatarsal W/O Manipulation C ompleted Medical Devices Description No Information Available Encounters Type Date Location Provider Dx Diagnosis Office Visit 08/07/2021 9:30a Adin De Leon PA-C S92.345 D Nondisp fx of 4th metatarsal bone, l ft, 7thD S92.335D Nondisp fx of 3rd metatarsal bone, l ft, 7thD S92.325D Nondisp fx of 2nd metatarsal bone, l ft, 7thD Office Visit 07/27/2021 2:15p Adin De Leon PA-C S92.345 D Nondisp fx of 4th metatarsal bone, l ft, 7thD S92.335D Nondisp fx of 3rd metatarsal bone, l ft, 7thD S92.325D Nondisp fx of 2nd metatarsal bone, l ft, 7thD Office Visit 07/03/2021 2:15p Adin De Leon PA-C S92.345 D Nondisp fx of 4th metatarsal bone, l ft, 7thD S92.335D Nondisp fx of 3rd metatarsal bone, l ft, 7thD S92.325D Nondisp fx of 2nd metatarsal bone, l ft, 7thD Office Visit 06/25/2021 11:15a Adin De Leon PA-C S92.325 A Nondisp fx of second metatarsal bone, left foot, init S92.335A Nondisp fx of third metatars al bone, left foot, init S92.345A Nondisp fx of fourth metatar foreign bone, left foot, init Assessments Date Code Description Provider 08/25/2021 S92.345D Nondisplaced fractur e of fourth metatarsal bone, left foot, subsequent encounter for fracture with routine healing Kristi L. Fish, [facility] 08/25/2021 S92.335D Nondisplaced fractur e of third metatarsal bone, left foot, subsequent encounter for fracture with routine healing Kristi L. Fish, [facility] 08/25/2021 S92.325D Nondisplaced fractur e of second metatarsal bone, left foot, subsequent encounter for fracture with routine healing Kristi L. Fish, [facility] 08/07/2021 S92.345D Nondisplaced fractur e of fourth metatarsal bone, left foot, subsequent encounter for fracture with routine healing Kristi L. Fish, [facility] 08/07/2021 S92.335D Nondisplaced fractur e of third metatarsal bone, left foot, subsequent encounter for fracture with routine healing Kristi L. Fish, [facility] 08/07/2021 S92.325D Nondisplaced fractur e of second metatarsal bone, left foot, subsequent encounter for fracture with routine healing Kristi L. Fish, [facility] 07/27/2021 S92.345D Nondisplaced fractur e of fourth metatarsal bone, left foot, subsequent encounter for fracture with routine healing Kristi L. Fish, [facility] 07/27/2021 S92.335D Nondisplaced fractur e of third metatarsal bone, left foot, subsequent encounter for fracture with routine healing Kristi L. Fish, [facility] 07/27/2021 S92.325D Nondisplaced fractur e of second metatarsal bone, left foot, subsequent encounter for fracture with routine healing Kristi L. Fish, [facility] 07/03/2021 S92.345D Nondisplaced fractur e of fourth metatarsal bone, left foot, subsequent encounter for fracture with routine healing Kristi L. Fish, [facility] 07/03/2021 S92.335D Nondisplaced fractur e of third metatarsal bone, left foot, subsequent encounter for fracture with routine healing Kristi L. Fish, [facility] 07/03/2021 S92.325D Nondisplaced fractur e of second metatarsal bone, left foot, subsequent encounter for fracture with routine healing Kristi De Leon PA-C 06/25/2021 S92.325A Nondisplaced fractur e of second metatarsal bone, left foot, initial encounter for closed fracture Kristi L. RACHAEL De Leon 06/25/2021 S92.335A Nondisplaced fractur e of third metatarsal bone, left foot, initial encounter for closed fracture Kristi L. RACHAEL De Leon 06/25/2021 S92.345A Nondisplaced fractur e of fourth metatarsal bone, left foot, initial encounter for closed fracture Kristi Vini RACHAEL De Leon Plan of Treatment Future Appointment(s):* 09/22/2021 9:45 am - Kristi De Leon PA-C [facility] [place] 08/25/2021 - Kristi PanteraRanjit De Leon PA-C* S92.345D Nondisplaced fracture of fourth metatarsal bone, left foot, subsequent encounter for fracture with routine healing* Follow up:* f/u 3-4 weeks repeat left foot xrays with [facility] * S92.335D Nondisplaced fracture of third metatarsal bone, left foot, subsequent encounter for fracture with routine healing * S92.325D Nondisplaced fracture of second metatarsal bone, left foot, subsequent encounter for fracture with routine healing Functional Status Description No Information Available Mental Status Description No Information Available Referrals Refer to Reason for Referral Status Appt Date Milton De Leon MD S92.902 UNSPECIFIED FX OF LT FOOT INITAL ENCTR FOR OPEN FX Created [address], [address] [place] [address] [phone]
--- OUTSIDE RECORDS SUMMARY | 2021-10-20 19:36 | CCD ---
Author Author [employer] Organization [employer] Address Unknown Phone Unavailable Care Team Providers Care Apple Turner Name Role Phone Jayne Randall Unavailable PROBLEMS ALLERGIES No Known Allergies ENCOUNTERS from 1960 to 2021-09-30 IMMUNIZATIONS SOCIAL HISTORY REASON FOR REFERRAL No Information VITAL SIGNS MEDICATIONS PROCEDURES No Information RESULTS No Results REASON FOR VISIT MEDICAL (GENERAL) HISTORY Goals Section Health Concerns MEDICAL EQUIPMENT No Information MENTAL STATUS FUNCTIONAL STATUS ASSESSMENTS No Information PLAN OF TREATMENT Insurance Providers
--- OUTSIDE RECORDS SUMMARY | 2021-10-20 19:36 | CCD | Continuity of Care Document ---
Author Author Yanira BORGES P. Trish Organization Unknown Address [address] [place] [address] Phone [phone] Care Team Providers Care Communications Assistant Name Role Phone Jill BORGES AUTM [phone] Social History Type Date Description Comments Sex Unknown Allergies and adverse reactions Description No Known Drug Allergies Medications Active Medications SIG Qnty Indications Ordering Provide r Date Furosemide 20mg Tablets take one tab by mouth twice daily 180tabs Bernard Quinonez M.D[facility]. Diltiazem HCL ER Coated Beads 180mg Caps ER 24HR take 1 capsule by mouth daily 90caps Bernard mills M.D.,[facility]. Metoprolol Tartrate 25mg Tablets take 1 tablet by mouth twice daily 180tabs Bernard Quinonez M.D[facility] .[facility] Potassium Chloride ER 10Meq Capsul es ER Take One Tablet By Mouth Daily 90caps Parrish Borges,P.C. Ketorolac Tromethamine 0.5% Soluti on Instill 1 Drop Into Right Eye 4 Times Daily as Directed Unknown Prednisolone Acetate 1% Suspension Instill 1 Drop Into Right Eye 4 Times Daily as Directed Unknown Atorvastatin Calcium 20mg Tablets 1 by mouth every day Unknown Aspirin 325mg Tablets DR Unknown Viactiv Calcium Plus D 650-12.5-40mg-mcg Chewtabs Unknown Vital Signs Date Vital Result Comment 09/15/2021 11:24am Height 64 inches 5'4" Weight 187.00 lb BMI (Body Mass Index) 32.1 kg/m2 Body Temperature 97.3 F BP Systolic 104 mmHg BP Diastolic 64 mmHg Heart Rate 69 /min O2 % BldC Oximetry 96 % 07/14/2021 11:11am Height 64 inches 5'4" Weight 193.00 lb BMI (Body Mass Index) 33.1 kg/m2 Body Temperature 97.3 F BP Systolic 116 mmHg BP Diastolic 77 mmHg Heart Rate 66 /min O2 % BldC Oximetry 95 % Procedures Date Code Description Status 07/14/2021 09508 Office/Outpatient Established Mo d MDM 30-39 Min Completed 05/13/2021 97922 Office/Outpatient Established Mo d MDM 30-39 Min Completed 05/13/2021 07855 EKG Completed 04/07/2021 23146 Office/Outpatient Established Mo d MDM 30-39 Min Completed Encounters Type Date Location Provider Dx Diagnosis Office Visit 07/14/2021 10:30a [facility] Bernard Quinonez M.D.,[facility] I11.9 Hypertensive heart disease without heart failure I48.0 Paroxysmal atrial fibrillati on R00.2 Palpitations Office Visit 05/13/2021 11:00a [facility] Bernard Quinonez M.D[facility]. I11.9 Hypertensive heart disease without heart failure I48.0 Paroxysmal atrial fibrillati on I49.49 Other premature depolarizati on Office Visit 04/07/2021 10:45a [facility] Bernard Quinonez M.D.,[facility]. [facility]. I48.0 Paroxysmal atrial fibrillation I11.9 Hypertensive heart disease w [facility] heart failure I49.49 Other premature depolarizati on Assessments Date Code Description Provider 07/14/2021 I11.9 Hypertensive heart disease witho ut heart failure Bernard [facility]z M[facility] 07/14/2021 I48.0 Paroxysmal atrial fibrillation Yasir Quinonez M.D.,P.C. 07/14/2021 R00.2 Palpitations Gregory Borges,P.C. 05/13/2021 I11.9 Hypertensive heart disease witho ut heart failure Bernard Quinonez M[facility] 05/13/2021 I48.0 Paroxysmal atrial fibrillation Yasir Quinonez M.D[facility]. 05/13/2021 I49.49 Other premature depolarization Yasir Quinonez M.D[facility] 04/07/2021 I48.0 Paroxysmal atrial fibrillation Yasir Quinonez M.D[facility]. 04/07/2021 I11.9 Hypertensive heart disease witho ut heart failure Bernard Quinonez M.D[facility] 04/07/2021 I49.49 Other premature depolarization Yasir Quinonez M.D[facility]P.C. Plan of Treatment Future Appointment(s):* 11/18/2021 11:00 am - Bernard Quinonez M[facility] at [facility]
--- OUTSIDE RECORDS SUMMARY | 2021-10-20 19:36 | CCD | Continuity of Care Document ---
Author Author Yanira DE LEON-C Organization Unknown Address [address] [place] [address] Phone [phone] Care Team Providers Care Doctor Of Naprapathic Medicine Name Role Phone AngusJayne donovan Yadira AGUIRRE AUTM Laron Jewell PA-C AUTM [phone] Problems Active Problems Provider Date Pure hypercholesterolemia [...] Information Available Procedures Date Code Description Status 09/22/2021 74254 X-Ray Foot Complete Completed 08/25/2021 18474 X-Ray Foot Complete Completed 07/27/2021 47960 X-Ray Foot Complete Completed 07/27/2021 78111 Apply Cast Short Leg Completed 07/03/2021 67785 X-Ray Foot Complete Completed 06/25/2021 89846 Office/Outpatient Established Mo d MDM 30-39 Min Completed 06/25/2021 09338 X-Ray Foot Complete Completed 06/25/2021 67567 FX Metatarsal W/O Manipulation C ompleted Medical Devices Description No Information Available Encounters Type Date Location Provider Dx Diagnosis Office Visit 09/22/2021 9:45a Adin De Leon PA-C S92.345 D Nondisp fx of 4th metatarsal bone, l ft, 7thD S92.335D Nondisp fx of 3rd metatarsal bone, l ft, 7thD S92.325D Nondisp fx of 2nd metatarsal bone, l ft, 7thD Office Visit 08/07/2021 9:30a Adin De Leon [...] l ft, 7thD Office Visit 06/25/2021 11:15a [place] Kristi Martini Quinton [facility] S92.325 A Nondisp fx of second metatarsal bone, left foot, init S92.335A Nondisp fx of third metatars al bone, left foot, init S92.345A Nondisp fx of fourth metatar foreign bone, left foot, init Assessments Date Code Description Provider 09/22/2021 S92.345D Nondisplaced fractur e of fourth metatarsal bone, left foot, subsequent encounter for fracture with routine healing Kristi L. Quinton [facility] 09/22/2021 S92.335D Nondisplaced fractur e of third metatarsal bone, left foot, subsequent encounter for fracture with routine healing Kristi L. Quinton [facility] 09/22/2021 S92.325D Nondisplaced fractur e of second metatarsal bone, left foot, subsequent encounter for fracture with routine healing Kristi L. Quinton [facility] 08/25/2021 S92.345D Nondisplaced fractur e of fourth metatarsal bone, left foot, subsequent encounter for fracture with routine healing Kristi L. Quinton [facility] 08/25/2021 S92.335D Nondisplaced fractur e of third metatarsal bone, left foot, subsequent encounter for fracture with routine healing Kristi L. Quinton [facility] 08/25/2021 S92.325D Nondisplaced fractur e of second metatarsal bone, left foot, subsequent encounter for fracture with routine healing Kristi L. Quinton [facility] 08/07/2021 S92.345D Nondisplaced fractur e of fourth metatarsal bone, left foot, subsequent encounter for fracture with routine healing Kristi L. Quinton [facility] 08/07/2021 S92.335D Nondisplaced fractur e of third metatarsal bone, left foot, subsequent encounter for fracture with routine healing Kristi L. Quinton [facility] 08/07/2021 S92.325D Nondisplaced fractur e of second metatarsal bone, left foot, subsequent encounter for fracture with routine healing Kristi L. ROLANDO De LeonC 07/27/2021 S92.345D Nondisplaced fractur e of fourth metatarsal bone, left foot, subsequent encounter for fracture with routine healing Kristi Martini MONICA De Leon-C 07/27/2021 S92.335D Nondisplaced fractur e of third metatarsal bone, left foot, subsequent encounter for fracture with routine healing Kristi Martini MONICA De Leon-C 07/27/2021 S92.325D Nondisplaced fractur e of second metatarsal bone, left foot, subsequent encounter for fracture with routine healing Kristi Martini [place] PA-C 07/03/2021 S92.345D Nondisplaced fractur e of fourth metatarsal bone, left foot, subsequent encounter for fracture with routine healing Kristi Martini MONICA De Leon-C 07/03/2021 S92.335D Nondisplaced fractur e of third metatarsal bone, left foot, subsequent encounter for fracture with routine healing Kristi Martini MONICA De Leon-C 07/03/2021 S92.325D Nondisplaced fractur e of second metatarsal bone, left foot, subsequent encounter for fracture with routine healing Kristi Martini MONICA De Leon-C 06/25/2021 S92.325A Nondisplaced fractur e of second metatarsal bone, left foot, initial encounter for closed fracture Kristi Martini ROLANDO De LeonC 06/25/2021 S92.335A Nondisplaced fractur e of third metatarsal bone, left foot, initial encounter for closed fracture Kristi Martini ROLANDO De LeonC 06/25/2021 S92.345A Nondisplaced fractur e of fourth metatarsal bone, left foot, initial encounter for closed fracture Kristi Martini RACHAEL De Leon Plan of Treatment Future Appointment(s):* 11/12/2021 11:00 am - Kristi De Leon PA-C at [facility] 09/22/2021 - Kristi PanteraRanjit De Leon PA-C* S92.345D Nondisplaced fracture of fourth metatarsal bone, left foot, subsequent encounter for fracture with routine healing* Follow up:* 5-6 weeks Lt. foot pepito with KLF (30th is fine is KLF is here she say's.) * S92.335D Nondisplaced fracture of third metatarsal bone, left foot, subsequent encounter for fracture with routine healing * S92.325D Nondisplaced fracture of second metatarsal bone, left foot, subsequent encounter for fracture with routine healing Functional Status Description No Information Available Mental Status Description No Information Available Referrals Refer to Reason for Referral Status Appt Date Milton De Leon MD S92.869 UNSPECIFIED FX OF LT FOOT INITAL ENCTR FOR OPEN FX Created [facility], [address] [place] [address] [phone]
--- OUTSIDE RECORDS SUMMARY | 2021-10-20 19:36 | CCD ---
Author Author [facility] Organization [facility] [employer] Address Unknown Phone Unavailable Care Team Providers Care Cloth Calender Name Role Phone Jayne Randall Unavailable PROBLEMS Type Condition ICD9-CM Code RTC72-RI Code Onset Dates Condition S tatus W/U Status Risk SNOMED Code Notes Problem Seasonal allergic rhinitis, unspecified allergic rhinitis trigger J30.2 Active confirmed 583776418 Problem Cataract of right eye, unspecified cataract type H 26.9 Active confirmed 154517997 Problem Total retinal detachment of right eye H33.051 Ac tive confirmed 33793244 Problem Detached retina, right H33.21 Active confirmed 90765605 Problem Cataract of left eye, unspecified cataract type H2 6.9 Active confirmed 416629423 Problem Age-related nuclear cataract of right eye H25.11 Active confirmed 398024203857060 Problem Ureteral stone with hydronephrosis N13.2 Activ e confirmed 297264025 Problem Mixed hyperlipidemia E78.2 Active confirmed 423167699 Problem Age-related nuclear cataract of left eye H25.12 Active confirmed 773774707813513 Problem SVT (supraventricular tachycardia) I47.1 Active co nfirmed 6320142 Problem Total retinal detachment, left eye H33.052 Activ e confirmed 62248135 Problem Encounter for screening for malignant neoplasm of breast, unspecified screening modality Z12.39 Active confirmed 944043934 Problem Body mass index [BMI] 38.0-38.9, adult Z68.38 A ctive confirmed 165551613 Problem Mild depression F32.0 Active confirmed 3104 53608 Problem History of tobacco abuse Z87.891 Active confirmed 5649698549836 Problem Morbid (severe) obesity due to excess calories E66 .01 Active confirmed 59356277533461 Problem BMI 34.0-34.9,adult Z68.34 Active confirmed 079267483 Problem Low back pain M54.5 Active confirmed 892092 007 Problem History of palpitations Z87.898 Active confirmed 916697858 Problem Colon cancer screening Z12.11 Active confirmed 761501213 Problem Cervical cancer screening Z12.4 Active confirmed 834205599 Problem Postmenopausal bone loss M81.0 Active confirmed 758246825 Problem 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 H33.011 Active confirmed 87455478 ALLERGIES No Known Allergies ENCOUNTERS from 1960 to 2021-10-02 Encounter Location Date Provider Diagnosis [facility] [address] [phone] [place] [address] 18 Sep, 2021 Jayne Randall Left breast mass N63.20 ; Mi xed hyperlipidemia E78.2 ; Seasonal allergic rhinitis, unspecified allergic rhinitis trigger J30.2 ; History of tobacco abuse Z87.891 ; SVT (supraventricular tachycardia) I47.1 ; Ureteral stone with hydronephrosis N13.2 ; Mild depression F32.0 ; BMI 34.0- 34.9,adult Z68.34 ; Encounter for screening for malignant neoplasm of breast, unspecified screening modality Z12.39 ; Cervical cancer screening Z12.4 ; Colon cancer screening Z12.11 ; Postmenopausal bone loss M81.0 ; Fall, sequela W19.XXXS ; 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 H33.011 ; Morbid (severe) obesity due to excess calories E66.01 and Body mass index [BMI] 38.0-38.9, adult Z68.38 IMMUNIZATIONS Vaccine Route Administration Date Status TDAP 0.5mL (Boostrix) IM Intramuscular January 29, 2016 Administe red Influenza 6mo & up Fluzone Unknown January 31, 2017 Refus ed Influenza 6mo & up Fluzone Unknown Dec 07, 2015 Refus ed SOCIAL HISTORY Tobacco Use: Social History Observation Description Date Details (start date - stop date) Former Smoker Sex Assigned At : Social History Observation Description Sex Assigned At Unknown Education: Question Answer Notes Level of Education: Finished High School Audit Question Answer Notes Total Score: 1 Interpretation: Alcohol Education Language: Question Answer Notes Languages spoken: Swedish Muslim: Question Answer Notes Muslim 19 Hoah[employer]ism Sexual Hx: Question Answer Notes Had sex in the last 12 months (vaginal, oral, or anal)? No LMP: post menopause Have you ever had an STD? No Drug and Alcohol Question Answer Notes Total Score: 0 Interpretation: No problems reported Alcohol Screening: Question Answer Notes Did you have a drink containing alcohol in the past year? Ye s Points 1 Interpretation Negative How often did you have six or more drinks on one occas ion in the past year? Never (0 points) How many drinks did you have on a typica l day when you were drinking in the past year? 1 or 2 (0 points) How often did you have a drink containing alcohol in t he past year? Monthly or less (1 point) BMI Care Goal Follow-Up Question Answer Notes Above Normal BMI Follow-Up Dietary management educatio n, guidance, and counseling, Dietary needs education, Weight monitoring Tobacco Use: Question Answer Notes Are you a: former smoker former smoker:2000 How long has it been since you last smoked? > 10 years REASON FOR REFERRAL from 1960 to 2021-10-02 Reason 63yocf c [facility].|Pls. eval. & monitor, thanks. Diagnosis 1 Left breast mass (N63.20) Referral Organization [facility] [place] Referring Provider First Name Jayne Referring Provider Last Name Prakash Referring Provider Specialty Family Medicine Referred Organization [facility] Care Referred Provider VICTORINO,([facility]) Referred Address [address] [place] [address] [place] [id number] Referred Provider Specialty OB - Gynecology Referral Priority Routine General Notes Antonella Calzada 11:31:34 AM > referral faxed VITAL SIGNS Weight 187.2 lbs Sep, Weight-kg 84.91 kg Sep, Height 64 in Sep, BMI 32.13 kg/m2 Sep, Heart Rate 90 /min Sep, Respiratory Rate 18 /min Sep, Temperature 96.8 degrees Fahrenheit Sep, Oximetry 96 Sep, Blood pressure systolic 112 mm Hg Sep, Blood pressure diastolic 78 mm Hg Sep, MEDICATIONS Medication SIG (Take, Route, Frequency, Duration) Notes Start Da te End Date Status Multivitamin Adults - 1 tab Orally Daily occ Active Potassium Chloride ER 10 MEQ 1 tablet with food Orally Twice a day for 30 day(s) Active Aspirin 325 MG 1 tablet Orally Once a day for 30 day(s) Active Furosemide 20 MG 1 tablet Orally twice daily Active Metoprolol Tartrate 25 mg 1 tablet with food Orally Twice a day Active Atorvastatin Calcium 20 MG 1 tablet Orally Once a day Active Viactiv Calcium Plus D 650-12.5-40 MG-MCG as directed Orally Active Cartia XT 180 MG 1 capsule Orally Once a day for 30 day(s) Active PROCEDURES No Information RESULTS No Results REASON FOR VISIT H&P breast biopsy MEDICAL (GENERAL) HISTORY Type Description Date Medical History Mixed hyperlipidemia Medical History Low back pain Medical History Seasonal allergic rhinitis, unspecified allergic rhinitis trigger Medical History History of tobacco abuse Medical History Detached retina, right Medical History Cataract of right eye, unspecified catar act type Medical History kidney stones Medical History Detached retina, Left 018 sx 09/18/18; follows with retinal specialist-Dr. Cuadra Medical History 10 Year ASCVD risk 2.8%; 2018 Medical History Stress test 05/2019: Normal cardiac stres s test with LVEF 80% Medical History ECHO 05/2019 Medical History SVT - Dr. Quinonez Medical History Left foot fractures 06/2021 Medical History Left breast outer quad. nodule for biops y 09/2021 Surgical History tubal ligation 1984 Surgical History detached retina -right 07/06/2016 Surgical History detached retina-right 09/11/2016 Surgical History scalp mass removed 09/2016 Surgical History Cataract-right eye 12/2017 Surgical History Cataract removed-left eye 03/2018 Surgical History detached retina-left eye 09/18/2018 Surgical History Colonosopy-repeat in 5 years 03/19/2016 Surgical History detached retina 02/2021 Hospitalization History childbirth x4 Goals Section No Information Health Concerns No Information MEDICAL EQUIPMENT No Information MENTAL STATUS No Information FUNCTIONAL STATUS No Information ASSESSMENTS Encounter Date Diagnosis Assessment Notes Treatment Notes Treatm ent Clinical Notes Sep, Left breast mass (ICD-10 - N63.20) Sep, Mixed hyperlipidemia (ICD-10 - E78.2) 06/2021 121/52/181; 18, 35, AP 164, cpk 98 01/2021 LDL 155/HDL 60/TG 145 01/2021 142, 4.1, 20/1.13, gluc 88, calc. 9.4, ast 17, alt 34, AP145 05/2019 na 143, k4.0, bun/cr 13/1.12, gluc 67, calc. 9.1, 19 ast, alt 37 Sep, Seasonal allergic rhinitis, unspecified allergic rhinitis trigger (ICD-10 - J30.2) Claritin prn over komal counter 01/2021 5.8, 14.8&45.1, 276k 01/2017 wbc 5.4, H&H 14.4&41.6, plats. 265k Sep, History of tobacco abuse (ICD-10 - Z87.891) Still quit 20Years ago used 38Y x1ppd or less Sep, SVT (supraventricular tachycardia) (ICD-10 - I47 .1) Stable x1Y Sep, Ureteral stone with hydronephrosis (ICD-10 - N13 .2) NO new symp.s Sep, Mild depression (ICD-10 - F32.0) Currently doing well s rx 01/2021 2.210,0.89 05/2019 tsh 1.690, 0.91 ft4 Sep, BMI 34.0-34.9,adult (ICD-10 - Z68.34) wt. 187.2, 06/2021 a1c 5.5; gluc 80 Sep, Encounter for screening for malignant neoplasm of breast, unspecified screening modality (ICD-10 - Z12.39) 09/2021 cat. 4 LUOQ c mammo. 08/2020 Cat. 1 Neg. mammo. 04/2019 Cat. 1 Neg. mammo. Sep, Cervical cancer screening (ICD-10 - Z12.4) 06/2020 pap NILM, atrophy-JZ 05/2019 pap NILM, HPV--JZ Sep, Colon cancer screening (ICD-10 - Z12.11) 2020 had apptmt. colonoscopy scheduled may have to r/s 2015 s/p colonoscopy DR. Antonio- teo f/u 5Y Sep, Postmenopausal bone loss (ICD-10 - M81.0) Sep, Fall, sequela (ICD-10 - W19.XXXS) 1st sore knees wasnt' watching missed a step mid May 2nd Left foot fracture, stepped in a hole c Rt. foot Sep, 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 (ICD-10 - H33.011) Follows c retina surgeon's 02/2021 had 1 surgery, 2nd is pending 2nd tear of Rt. Retina time 5Y prior also Sep, Morbid (severe) obesity due to excess calories ( ICD-10 - E66.01) Sep, Body mass index [BMI] 38.0-38.9, adult (ICD-10 - Z68.38) Sep, Other 40" chart revie w., orders, H&P PLAN OF TREATMENT Medication Medication Name Sig Start Date Stop Date Atorvastatin Calcium 20 MG 1 tablet Orally Once a day Treatment Notes Assessment Notes Clinical Notes Mixed hyperlipidemia 06/2021 121/52/181; 18, 35, AP 164, cpk 9801/2021 LDL 155/HDL 60/TG 14501/2021 142, 4.1, 20/1.13, gluc 88, calc. 9.4, ast 17, alt 34, OF4555 na 143, k4.0, bun/cr 13/1.12, gluc 67, calc. 9.1, 19 ast, alt 37 Seasonal allergic rhinitis, unspecified allergic rhinitis tr igger Claritin prn over komal counter01/2021 5.8, 14.8&45.1, 276k3/2016 wbc 5.4, H&H 14.4&41.6, plats. 265k History of tobacco abuse Still quit 20Ye ars ago used 36Y x1ppd or less SVT (supraventricular tachycardia) Stabl e x1Y Ureteral stone with hydronephrosis NO ne w symp.s Mild depression Currently doing well s rx01/2021 2.210,0.897 tsh 1.690, 0.91 ft4 BMI 34.0-34.9,adult wt. 187.2,06/2021 a1c 5.5; gluc 80 Encounter for screening for malignant ne oplasm of breast, unspecified screening modality 09/2021 cat. 4 LUOQ c mammo. 08/2020 Cat. 1 Neg. mammo.04/2019 Cat. 1 Neg. mammo. Cervical cancer screening pa p NILM, atrophy-JZ05/2019 pap NILM, HPV--JZ Colon cancer screening 2020 had apptmt. colonoscopy scheduled may have to r/s2016 s/p colonoscopy DR. Antonio- nl f/u 5Y 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 Follows c retina surgeon's 02/2021 had 1 surgery, 2nd is [id number] tear of Rt. Retina time 5Y prior also Fall, sequela 1st sore knees wasnt ' watching missed a step mid Left foot fracture, stepped in a hole c Rt. foot Pending Tests Test Name Order Date US GUIDED BREAST BIOPSY (Clip Placement if Indicated) US.[facility]doX [facility] or [facility] 2021-10-01 Pathology Request For Service 2021-10-01 WMM DIAGNOSTIC UNILAT MAMMO (Ultrasound if indicated) WMM.[facility] 2021-10-01 Referrals Referral Date Details 61yocf c Left [place] nodule for biopsy.|Pls. eval. & monitor, thanks., ([facility]) [facility], [address], [place], [address], Next Appt Details c SS Reason: Provider Name:Jayne Randall, 2020-11 07:30:00 AM, [address], , [place], [address], Insurance Providers Payer Name Payer Address Payer Phone Insured Name Patient Relati onship to Insured Coverage Start Date Coverage End Date FORMERLY [facility] [employer] [facility] [place] [address] [facility] [phone] FERNANDA BROTHERS
--- OUTSIDE RECORDS SUMMARY | 2021-10-20 19:37 | CCD | Continuity of Care Document ---
Author Author Yanira DE LEON-Audrey Organization Unknown Address [address] [place] [address] Phone [phone] Care Team Providers Care Database Administration Manager Name Role Phone AngusJayne donovan Yadira AGUIRRE AUTM Laron Jewell PA-C AUTM [phone] Problems Active Problems Provider Date Pure hypercholesterolemia Milton De Leon MD Onset: 021 Social History Type Date Description Comments Sex Unknown ETOH Use Rarely consumes alcohol Tobacco Use Start: Unknown End: Unknown Patient is a former smoker pack a day Allergies, Adverse Reactions, Alerts Description No Known Drug Allergies Medications Active Medications SIG Qnty Indications Ordering Provide r Date Cartia XT 180mg Caps ER 24HR Unknown Metoprolol Succinate ER 25mg Tablets ER 24HR Unknown Furosemide 20mg Tablets Unknown Potassium Chloride ER 10Meq Capsules ER Unknown Atorvastatin Calcium 20mg Tablets Unknown Viactiv Calcium Plus D 650-12.5-40mg-mcg Chewtabs 2 by mouth every day Unknown 000 Aspirin 325mg Tablets Unknown Preservision Areds [...] Information Available Procedures Date Code Description Status 07/27/2021 79054 X-Ray Foot Complete Completed 07/27/2021 44047 Apply Cast Short Leg Completed 07/03/2021 78095 X-Ray Foot Complete Completed 06/25/2021 44218 Office/Outpatient Established Mo d MDM 30-39 Min Completed 06/25/2021 21159 X-Ray Foot Complete Completed 06/25/2021 84207 FX Metatarsal W/O Manipulation C ompleted Medical Devices Description No Information Available Encounters Type Date Location Provider Dx Diagnosis Office Visit 07/27/2021 2:15p [place] De Leon PA-C S92.345 D Nondisp fx of 4th metatarsal bone, l ft, 7thD S92.335D Nondisp fx of 3rd metatarsal bone, l ft, 7thD S92.325D Nondisp fx of 2nd metatarsal bone, l ft, 7thD Office Visit 07/03/2021 2:15p [place] Kristi De Leon PA-C S92.345 D Nondisp fx of 4th metatarsal bone, l ft, 7thD S92.335D Nondisp fx of 3rd metatarsal bone, l ft, 7thD S92.325D Nondisp fx of 2nd metatarsal bone, l ft, 7thD Office Visit 06/25/2021 11:15a [place] De Leon PA-C S92.325 A Nondisp fx of second metatarsal bone, left foot, init S92.335A Nondisp fx of third metatars al bone, left foot, init S92.345A Nondisp fx of fourth metatar foreign bone, left foot, init Assessments Date Code Description Provider 07/27/2021 S92.345D Nondisplaced fractur e of fourth metatarsal bone, left foot, subsequent encounter for fracture with routine healing Kristi De Leon PA-C 07/27/2021 S92.335D Nondisplaced fractur e of third metatarsal bone, left foot, subsequent encounter for fracture with routine healing Kristi De Leon PA-C 07/27/2021 S92.325D Nondisplaced fractur e of second metatarsal bone, left foot, subsequent encounter for fracture with routine healing Kristi Martini RACHAEL De Leon 07/03/2021 S92.345D Nondisplaced fractur e of fourth metatarsal bone, left foot, subsequent encounter for fracture with routine healing Kristi Martini RACHAEL De Leon 07/03/2021 S92.335D Nondisplaced fractur e of third metatarsal bone, left foot, subsequent encounter for fracture with routine healing Kristi Martini RACHAEL De Leon 07/03/2021 S92.325D Nondisplaced fractur e of second metatarsal bone, left foot, subsequent encounter for fracture with routine healing Kristi L. RACHAEL De Leon 06/25/2021 S92.325A Nondisplaced fractur e of second metatarsal bone, left foot, initial encounter for closed fracture Kristi Martini RACHAEL De Leon 06/25/2021 S92.335A Nondisplaced fractur e of third metatarsal bone, left foot, initial encounter for closed fracture Kristi Martini RACHAEL De Leon 06/25/2021 S92.345A Nondisplaced fractur e of fourth metatarsal bone, left foot, initial encounter for closed fracture Kristi L. RACHAEL De Leon Plan of Treatment Future Appointment(s):* 08/25/2021 8:45 am - Kristi De Leon PA-C at [place] 07/27/2021 - Kristi De Leon PA-C* S92.345D Nondisplaced fracture of fourth metatarsal bone, left foot, subsequent encounter for fracture with routine healing* Follow up:* 4 weeks for lt foot recheck with KLF repeat XOOB * S92.335D Nondisplaced fracture of third metatarsal bone, left foot, subsequent encounter for fracture with routine healing * S92.325D Nondisplaced fracture of second metatarsal bone, left foot, subsequent encounter for fracture with routine healing Functional Status Description No Information Available Mental Status Description No Information Available Referrals Refer to Dr Reason for Referral Status Appt Date Milton De Leon MD S92.087 UNSPECIFIED FX OF LT FOOT INITAL ENCTR FOR OPEN FX Created [facility] [facility], [address] [place] [address] [phone]
--- OUTSIDE RECORDS SUMMARY | 2021-10-20 19:37 | CCD | Continuity of Care Document ---
Author Author Yanira DE LEON-Audrey Organization Unknown Address [address] [place] [id number] Phone [phone] Care Team Providers Care Supervisor Cutting Department Name Role Phone AngusJayne donovan Yadira AGUIRRE AUTM Laron Jewell PA-C AUTM [phone] Problems Active Problems Provider Date Pure hypercholesterolemia [...] Available Procedures Date Code Description Status 07/27/2021 10895 X-Ray Foot Complete Completed 07/27/2021 53711 Apply Cast Short Leg Completed 07/03/2021 69107 X-Ray Foot Complete Completed 06/25/2021 00180 Office/Outpatient Established Mo d MDM 30-39 Min Completed 06/25/2021 29279 X-Ray Foot Complete Completed 06/25/2021 69194 FX Metatarsal W/O Manipulation C ompleted Medical Devices Description No Information Available Encounters Type Date Location Provider Dx Diagnosis Office Visit 07/27/2021 2:15p [facility] S92.345 D Nondisp fx of 4th metatarsal bone, l ft, 7thD S92.335D Nondisp fx of 3rd metatarsal bone, l ft, 7thD S92.325D Nondisp fx of 2nd metatarsal bone, l ft, 7thD Office Visit 07/03/2021 2:15p [facility] Kristi De Leon PA-C S92.345 D Nondisp fx of 4th metatarsal bone, l ft, 7thD S92.335D Nondisp fx of 3rd metatarsal bone, l ft, 7thD S92.325D Nondisp fx of 2nd metatarsal bone, l ft, 7thD Office Visit 06/25/2021 11:15a [facility] S92.325 A Nondisp fx [...] for fracture with routine healing Kristi Martini ROLANDO De LeonC 07/03/2021 S92.345D Nondisplaced fractur e of fourth metatarsal bone, left foot, subsequent encounter for fracture with routine healing Kristi Martini ROLANDO De LeonC 07/03/2021 S92.335D Nondisplaced fractur e of third metatarsal bone, left foot, subsequent encounter for fracture with routine healing Kristi Martini ROLANDO De LeonC 07/03/2021 S92.325D Nondisplaced fractur e of second metatarsal bone, left foot, subsequent encounter for fracture with routine healing Kristi Martini ROLANDO De LeonC 06/25/2021 S92.325A Nondisplaced fractur e of second [...] De Leon Plan of Treatment Future Appointment(s):* 08/07/2021 9:30 am - Kristi De Leon PA-C at [facility] * 08/25/2021 8:45 am - Kristi De Leon PA-C at [facility] 07/27/2021 - Kristi PanteraRanjit De Leon PA-C* S92.345D [...] INITAL ENCTR FOR OPEN FX Created [address] [facility], [address] [place] [address] [phone]
--- OUTSIDE RECORDS SUMMARY | 2021-10-20 19:37 | CCD | Continuity of Care Document ---
Author Author Yanira DE LEON PA-C Organization Unknown Address [address] [place] [address] Phone [phone] Care Team Providers Care Supervisor Weaving Name Role Phone AngusJayne donovan aYdira RAOC AUTM Laron Jewell PA-C AUTM [phone] Problems Active Problems Provider Date Pure hypercholesterolemia Milton De Leon MD Onset: 021 Social History Type Date Description Comments Sex Unknown ETOH Use Rarely consumes alcohol Tobacco Use Start: Unknown End: Unknown Patient is a former smoker pack a day Smoking Status Reviewed: 08/07/21 Patient is a former smoker pa ck a day Allergies, Adverse Reactions, Alerts Description [...] Available Procedures Date Code Description Status 07/27/2021 63207 X-Ray Foot Complete Completed 07/27/2021 05020 Apply Cast Short Leg Completed 07/03/2021 05334 X-Ray Foot Complete Completed 06/25/2021 54016 Office/Outpatient Established Mo d MDM 30-39 Min Completed 06/25/2021 43721 X-Ray Foot Complete Completed 06/25/2021 33336 FX Metatarsal W/O Manipulation C ompleted Medical [...] foot, init Assessments Date Code Description Provider 08/07/2021 S92.345D Nondisplaced fractur e of fourth metatarsal bone, left foot, subsequent encounter for fracture with routine healing Kristi L. Quinton, [facility] 08/07/2021 S92.335D Nondisplaced fractur e of third metatarsal bone, left foot, subsequent encounter for fracture with routine healing Kristi L. Fish, [facility] 08/07/2021 S92.325D Nondisplaced fractur e of second metatarsal bone, left foot, subsequent encounter for fracture with routine healing Kristi L. Fish, [facility] 07/27/2021 S92.345D Nondisplaced fractur e of fourth metatarsal bone, left foot, subsequent encounter for fracture with routine healing Kristi L. Fish, [facility] 07/27/2021 S92.335D Nondisplaced fractur e of third metatarsal bone, left foot, subsequent encounter for fracture with routine healing Kristi L. Fish, [facility] 07/27/2021 S92.325D Nondisplaced fractur e of second metatarsal bone, left foot, subsequent encounter for fracture with routine healing Kristi L. Fish, [facility] 07/03/2021 S92.345D Nondisplaced fractur e of fourth metatarsal bone, left foot, subsequent encounter for fracture with routine healing Kristi L. Fish, [facility] 07/03/2021 S92.335D Nondisplaced fractur e of third metatarsal bone, left foot, subsequent encounter for fracture with routine healing Kristi L. Fish, [facility] 07/03/2021 S92.325D Nondisplaced fractur e of second metatarsal bone, left foot, subsequent encounter for fracture with routine healing Kristi L. Fish, [facility] 06/25/2021 S92.325A Nondisplaced fractur e of second metatarsal bone, left foot, initial encounter for closed fracture Kristi L. Fish, [facility] 06/25/2021 S92.335A Nondisplaced fractur e of third metatarsal bone, left foot, initial encounter for closed fracture Kristi L. Fish, [facility] 06/25/2021 S92.345A Nondisplaced fractur e of fourth metatarsal bone, left foot, initial encounter for closed fracture Kristi L. Fish, PA-C Plan of Treatment Future Appointment(s):* 08/25/2021 8:45 am - Kristi De Leon PA-C at [facility] 08/07/2021 - Kristi De Leon PA-C* S92.345D Nondisplaced fracture of fourth metatarsal bone, left foot, subsequent encounter for fracture with routine healing* Follow up:* keep scheduled appointment with [facility] for x-rays * S92.335D Nondisplaced fracture of third metatarsal bone, left foot, subsequent encounter for fracture with routine healing * S92.325D Nondisplaced fracture of second metatarsal bone, left foot, subsequent encounter for fracture with routine healing Functional Status Description No Information Available Mental Status Description No Information Available Referrals Refer to Reason for Referral Status Appt Date Milton De Leon MD S94.526 UNSPECIFIED FX OF LT FOOT INITAL ENCTR FOR OPEN FX Created [address] [facility], [address] [place] [address] [phone]
--- OUTSIDE RECORDS SUMMARY | 2021-10-20 19:37 | CCD ---
Author Author [facility] Organization [facility] Address Unknown Phone Unavailable Care Team Providers Care Handle Lathe Operator Name Role Phone Alyssa RUIZ MD Unavailable Unavailable Alyssa RUIZ MD Unavailable Unavailable Alyssa RUIZ MD Unavailable Unavailable Alyssa RUIZ MD Unavailable Unavailable Alyssa RUIZ MD Unavailable Unavailable Alyssa RUIZ MD Unavailable Unavailable Alyssa RUIZ MD Unavailable Unavailable Alyssa RUIZ MD Unavailable Unavailable Alyssa RUIZ MD Unavailable Unavailable Alyssa RUIZ MD Unavailable Unavailable Alyssa RUIZ MD Unavailable Unavailable Alyssa RUIZ MD Unavailable Unavailable Alyssa RUIZ MD Unavailable Unavailable Alyssa RUIZ MD Unavailable Unavailable Alyssa RUIZ MD Unavailable Unavailable Alyssa RUIZ MD Unavailable Unavailable Alyssa RUIZ MD Unavailable Unavailable Alyssa RUIZ MD Unavailable Unavailable Alyssa RUIZ MD Unavailable Unavailable Alyssa RUIZ MD Unavailable Unavailable Alyssa RUIZ MD Unavailable Unavailable Alyssa RUIZ MD Unavailable Unavailable RUIZAlyssa SANCHEZ MD Unavailable Unavailable Alyssa RUIZ MD Unavailable Unavailable Alyssa RUIZ MD Unavailable Unavailable Alyssa RUIZ MD Unavailable Unavailable JOSEPH, Alyssa COLON MD Unavailable Unavailable Alyssa RUIZ MD Unavailable Unavailable Alyssa RUIZ MD Unavailable Unavailable RUIZ, Alyssa COLON MD Unavailable Unavailable RUIZ, Alyssa COLON MD Unavailable Unavailable RUIZ, Alyssa COLON MD Unavailable Unavailable RUIZ, Alyssa COLON MD Unavailable Unavailable RUIZ, Alyssa COLON MD Unavailable Unavailable RUIZ, Alyssa COLON MD Unavailable Unavailable RUIZ, Alyssa COLON MD Unavailable Unavailable RUIZ, Alyssa COLON MD Unavailable Unavailable RUIZ, Alyssa COLON MD Unavailable Unavailable JOSEPH, Alyssa COLON MD Unavailable Unavailable JOSEPH, Alyssa COLON MD Unavailable Unavailable JOSEPH, Alyssa COLON MD Unavailable Unavailable JOSEPH, Alyssa COLON MD Unavailable Unavailable JOSEPH, Alyssa COLON MD Unavailable Unavailable Alyssa RUIZ MD Unavailable Unavailable JOSEPH, Alyssa COLON MD Unavailable Unavailable Alyssa RUIZ MD Unavailable Unavailable Alyssa RUIZ MD Unavailable Unavailable Alyssa RUIZ MD Unavailable Unavailable Fish, [facility], PA-C Unavailable Unavailabl e Fish, [facility], PA-C Unavailable Unavailabl e Fish, [facility], PA-C Unavailable Unavailabl e Fish, [facility], PA-C Unavailable Unavailabl e Fish, [facility], PA-C Unavailable Unavailabl e Fish, [facility], PA-C Unavailable Unavailabl e Fish, [facility], PA-C Unavailable Unavailabl e Fish, [facility], PA-C Unavailable Unavailabl e Fish, [facility], PA-C Unavailable Unavailabl e Fish, [facility], PA-C Unavailable Unavailabl e Fish, [facility], PA-C Unavailable Unavailabl e Fish, [facility], PA-C Unavailable Unavailabl e Fish, [facility], PA-C Unavailable Unavailabl e Fish, [facility], PA-C Unavailable Unavailabl e Fish, [facility], PA-C Unavailable Unavailabl e Fish, [facility], PA-C Unavailable Unavailabl e Fish, [facility], PA-C Unavailable Unavailabl e Fish, [facility], PA-C Unavailable Unavailabl e Fish, [facility], PA-C Unavailable Unavailabl e Fish, [facility], PA-C Unavailable Unavailabl e Fish, [facility], PA-C Unavailable Unavailabl e Fish, [facility], PA-C Unavailable Unavailabl e Fish, [facility], PA-C Unavailable Unavailabl e Fish, [facility], PA-C Unavailable Unavailabl e Fish, [facility], PA-C Unavailable Unavailabl e Fish, [facility], PA-C Unavailable Unavailabl e Fish, [facility], PA-C Unavailable Unavailabl e Fish, [facility], PA-C Unavailable Unavailabl e Fish, [facility], PA-C Unavailable Unavailabl e Fish, [facility], PA-C Unavailable Unavailabl e Fish, [facility], PA-C Unavailable Unavailabl e Fish, [facility], PA-C Unavailable Unavailabl e Fish, [facility], PA-C Unavailable Unavailabl e Fish, [facility], PA-C Unavailable Unavailabl e Fish, [facility], PA-C Unavailable Unavailabl e Fish, [facility], PA-C Unavailable Unavailabl e ZOILA QUINONEZ MD Unavailable Unavailable ZOILA QUINONEZ MD Unavailable Unavailable ZOILA QUINONEZ MD Unavailable Unavailable ZOILA QUINONEZ MD Unavailable Unavailable ZOILA QUINONEZ MD Unavailable Unavailable ZOILA QUINONEZ MD Unavailable Unavailable ZOILA QUINONEZ MD Unavailable Unavailable ZOILA QUINONEZ MD Unavailable Unavailable ZOILA QUINONEZ MD Unavailable Unavailable ZOILA QUINONEZ MD Unavailable Unavailable ZOILA QUINONEZ MD Unavailable Unavailable ZOILA QUINONEZ MD Unavailable Unavailable CAROLEE, MAQBOOL CAMILLE MD Unavailable Unavailable CAROLEE, MAQBOOL CAMILLE MD Unavailable Unavailable CAROLEE, MAQBOOL CAMILLE MD Unavailable Unavailable CAROLEE, MAQBOOL CAMILLE MD Unavailable Unavailable CAROLEE, MAQBOOL CAMILLE MD Unavailable Unavailable CAROLEE, MAQBOOL CAMILLE MD Unavailable Unavailable CAROLEE, MAQBOOL CAMILLE MD Unavailable Unavailable CAROLEE, MAQBOOL CAMILLE MD Unavailable Unavailable CAROLEE, MAQBOOL CAMILLE MD Unavailable Unavailable CAROLEE, MAQBOOL CAMILLE MD Unavailable Unavailable CAROLEE, MAQBOOL CAMILLE MD Unavailable Unavailable CAROLEE, MAQBOOL CAMILLE MD Unavailable Unavailable CAROLEE, MAQBOOL CAMILLE MD Unavailable Unavailable CAROLEE, MAQBOOL CAMILLE MD Unavailable Unavailable CAROLEE, MAQBOOL CAMILLE MD Unavailable Unavailable CAROLEE, MAQBOOL CAMILLE MD Unavailable Unavailable CAROLEE, MAQBOOL CAMILLE MD Unavailable Unavailable CAROLEE, MAQBOOL CAMILLE MD Unavailable Unavailable CAROLEE, MAQBOOL CAMILLE MD Unavailable Unavailable CAROLEE, MAQBOOL CAMILLE MD Unavailable Unavailable CAROLEE, MAQBOOL CAMILLE MD Unavailable Unavailable CAROLEE, MAQBOOL CAMILLE MD Unavailable Unavailable CAROLEE, MAQBOOL CAMILLE MD Unavailable Unavailable CAROLEE, MAQBOOL CAMILLE MD Unavailable Unavailable CAROLEE, MAQBOOL CAMILLE MD Unavailable Unavailable CAROLEE, MAQBOOL CAMILLE MD Unavailable Unavailable CAROLEE, MAQBOOL CAMILLE MD Unavailable Unavailable CAROLEE, MAQBOOL CAMILLE MD Unavailable Unavailable CAROLEE, MAQBOOL CAMILLE MD Unavailable Unavailable CAROLEE, MAQBOOL CAMILLE MD Unavailable Unavailable CAROLEE, MAQBOOL CAMILLE MD Unavailable Unavailable CAROLEE, MAQBOOL CAMILLE MD Unavailable Unavailable CAROLEE, MAQBOOL CAMILLE MD Unavailable Unavailable CAROLEE, MAQBOOL CAMILLE MD Unavailable Unavailable CAROLEE, MAQBOOL CAMILLE MD Unavailable Unavailable CAROLEE, MAQBOOL CAMILLE MD Unavailable Unavailable CAROLEE, MAQBOOL CAMILLE MD Unavailable Unavailable CAROLEE, MAQBOOL CAMILLE MD Unavailable Unavailable CAROLEE, MAQBOOL CAMILLE MD Unavailable Unavailable CAROLEE, MAQBOOL CAMILLE MD Unavailable Unavailable CAROLEE, MAQBOOL CAMILLE MD Unavailable Unavailable CAROLEE, MAQBOOL CAMILLE MD Unavailable Unavailable CAROLEE, MAQBOOL CAMILLE MD Unavailable Unavailable CAROLEE, MAQBOOL CAMILLE MD Unavailable Unavailable CAROLEE, MAQBOOL CAMILLE MD Unavailable Unavailable CAROLEE, MAQBOOL CAMILLE MD Unavailable Unavailable CAROLEE, MAQBOOL CAMILLE MD Unavailable Unavailable CAROLEE, MAQBOOL CAMILLE MD Unavailable Unavailable CAROLEE, MAQBOOL CAMILLE MD Unavailable Unavailable CAROLEE, MAQBOOL CAMILLE MD Unavailable Unavailable CAROLEE, MAQBOOL CAMILLE MD Unavailable Unavailable CAROLEE, MAQBOOL CAMILLE MD Unavailable Unavailable CAROLEE, MAQBOOL CAMILLE MD Unavailable Unavailable CAROLEE, MAQBOOL CAMILLE MD Unavailable Unavailable CAROLEE, MAQBOOL CAMILLE MD Unavailable Unavailable CAROLEE, MAQBOOL CAMILLE MD Unavailable Unavailable CAROLEE, MAQBOOL CAMILLE MD Unavailable Unavailable CAROLEE, MAQBOOL CAMILLE MD Unavailable Unavailable CAROLEE, MAQBOOL CAMILLE MD Unavailable Unavailable CAROLEE, MAQBOOL CAMILLE MD Unavailable Unavailable CAROLEE, MAQBOOL CAMILLE MD Unavailable Unavailable CAROLEE, MAQBOOL CAMILLE MD Unavailable Unavailable CAROLEE, MAQBOOL CAMILLE MD Unavailable Unavailable CAROLEE, MAQBOOL CAMILLE MD Unavailable Unavailable CAROLEE, MAQBOOL CAMILLE MD Unavailable Unavailable CAROLEE, MAQBOOL CAMILLE MD Unavailable Unavailable CAROLEE, MAQBOOL CAMILLE MD Unavailable Unavailable [place] Unavailable [phone] [place] Unavailable [phone] [place] Unavailable [phone] [place] Unavailable [phone] [place] Unavailable [phone] [place] Unavailable [phone] Alyssa RUIZ MD Unavailable Unavailable Alyssa RUIZ MD Unavailable Unavailable Alyssa RUIZ MD Unavailable Unavailable Alyssa RUIZ MD Unavailable Unavailable RUIZ, I ISAIAH MD Unavailable Unavailable RUIZ, I ISAIAH MD Unavailable Unavailable RUIZ, I ISAIAH MD Unavailable Unavailable RUIZ, I ISAIAH MD Unavailable Unavailable RUIZ, I ISAIAH MD Unavailable Unavailable RUIZ, I ISAIAH MD Unavailable Unavailable RUIZ, I ISAIAH MD Unavailable Unavailable RUIZ, I ISAIAH MD Unavailable Unavailable RUIZ, I ISAIAH MD Unavailable Unavailable RUIZ, I ISAIAH MD Unavailable Unavailable RUIZ, I ISAIAH MD Unavailable Unavailable RUIZ, I ISAIAH MD Unavailable Unavailable RUIZ, I ISAIAH MD Unavailable Unavailable RUIZ, I ISAIAH MD Unavailable Unavailable RUIZ, I ISAIAH MD Unavailable Unavailable RUIZ, I ISAIAH MD Unavailable Unavailable RUIZ, I ISAIAH MD Unavailable Unavailable RUIZ, I ISAIAH MD Unavailable Unavailable RUIZ, I ISAIAH MD Unavailable Unavailable RUIZ, I ISAIAH MD Unavailable Unavailable RUIZ, I ISAIAH MD Unavailable Unavailable RUIZ, I ISAIAH MD Unavailable Unavailable RUIZ, I ISAIAH MD Unavailable Unavailable RUIZ, I ISAIAH MD Unavailable Unavailable RUIZ, I ISAIAH MD Unavailable Unavailable RUIZ, I ISAIAH MD Unavailable Unavailable RUIZ, I ISAIAH MD Unavailable Unavailable RUIZ, I ISAIAH MD Unavailable Unavailable RUIZ, I ISAIAH MD Unavailable Unavailable RUIZ, I ISAIAH MD Unavailable Unavailable RUIZ, I ISAIAH MD Unavailable Unavailable RUIZ, I ISAIAH MD Unavailable Unavailable RUIZ, I ISAIAH MD Unavailable Unavailable RUIZ, I ISAIAH MD Unavailable Unavailable RUIZ, I ISAIAH MD Unavailable Unavailable RUIZ, I ISAIAH MD Unavailable Unavailable RUIZ, I ISAIAH MD Unavailable Unavailable RUIZ, I ISAIAH MD Unavailable Unavailable RUIZ, I ISAIAH MD Unavailable Unavailable RUIZ, I ISAIAH MD Unavailable Unavailable RUIZ, I ISAIAH MD Unavailable Unavailable RUIZ, I ISAIAH MD Unavailable Unavailable RUIZ, I ISAIAH MD Unavailable Unavailable RUIZ, I ISAIAH MD Unavailable Unavailable Re-disclosure Warning The records that you are about to access may contain information from federally-assisted alcohol or drug abuse programs. If such information is present, then the following federally mandated warning applies: This information has been disclosed to you from records protected by federal confidentiality rules (42 CFR part 2). The federal rules prohibit you from making any further disclosure of this information unless further disclosure is expressly permitted by the written consent of the person to whom it pertains or as otherwise permitted by 42 CFR part 2. A general authorization for the release of medical or other information is NOT sufficient for this purpose. The Federal rules restrict any use of the information to criminally investigate or prosecute any alcohol or drug abuse patient.The records that you are about to access may contain highly sensitive health information, the redisclosure of which is protected by Article 27-F of the [facility] Public Health law. If you continue you may have access to information: Regarding HIV / AIDS; Provided by facilities licensed or operated by the [facility] Office of Mental Health; or Provided by the [facility] Office for People With Developmental Disabilities. If such information is present, then the following [facility] mandated warning applies: This information has been disclosed to you from confidential records which are protected by state law. State law prohibits you from making any further disclosure of this information without the specific written consent of the person to whom it pertains, or as otherwise permitted by law. Any unauthorized further disclosure in violation of state law may result in a fine or care home sentence or both. A general authorization for the release of medical or other information is NOT sufficient authorization for further disc losure. Family History Family Member Name Family Member Gender Family Member Status Date o f Status Description Data Source(s) Unknown Unknown Problem MEDENT ([facility]) mother Encounters Encounter Providers Location Date Indications Data Source(s ) Unknown [address] [facility] [place] [address] 10/19/2021 12:00:00 AM EST eCW1 (Critical access hospital) Outpatient [address] [facility] [address] 10/01/2021 12:00:00 AM EST eCW1 (Critical access hospital) Unknown [address] [facility] [place] [address] 09/25/2021 12:00:00 AM EST eCW1 (Critical access hospital) Office Visit Attender: Kristi VEGA PA-C Physical Therapy 09/22/2021 08:45:00 AM EST MEDENT ([facility]) Unknown [address] [facility] [place] [address] 08/20/2021 12:00:00 AM EDT eCW1 ([facility]) Office Visit Attender: Kristi VEGA PA-C Physical Therapy 08/07/2021 09:30:00 AM EDT MEDENT ([facility]) Office Visit Attender: Kristi VEGA PA-C Physical Therapy 07/27/2021 02:15:00 PM EDT MEDENT ([facility]) Outpatient Attender: CAMILLE QUINONEZ MD [facility] 07/14 10:30:00 AM EDT MEDENT (Camille Quinonez MD) Unknown [address] [facility] [place] [address] 07/13/2021 12:00:00 AM EDT [facility]CW1 [facility]) Outpatient [address] [facility] [place] [address] 07/09/2021 12:00:00 AM EDT [facility]CW1 [facility] [place]) Office Visit Attender: Kristi VEGA PA-C Physical Therapy 07/03/2021 02:15:00 PM EDT MED[facility] ([facility]) Unknown [address] [facility] [place] [address] 07/03/2021 12:00:00 AM EDT eCW1 ([facility]) Outpatient Attender: Kristi VEGA PA-C Physical Therapy 06/25/2021 11:15:00 AM EDT [facility] ([facility]) Unknown [address] [facility] [place] [address] 06/25/2021 12:00:00 AM EDT eCW1 ([facility]) Outpatient Attender: [place] 06/24 08:00:52 PM EDT - 06/24/2021 09:37:54 PM EDT [facility] ([facility] ) Unknown [address] [facility] [place] [address] 05/26/2021 12:00:00 AM EDT eCW1 ([facility] [place]) Outpatient Attender: CAMILLE QUINONEZ MD [facility] 05/13 11:00:00 AM EDT MEDENT (Camille Quinonez MD) Outpatient Attender: CAMILLE QUINONEZ MD Medical Building 04/07 10:45:00 AM EDT MEDENT (Camille Quinonez MD) [place] ( in Healthcare facility) Attender: ISAIAH RUIZ MD 03/11/2021 11:16:00 AM EDT - 03/12/2021 10:08:00 AM EDT [facility] Attender: ISAIAH RUIZ MDAdmitter: ISAIAH BRIDGES MD 03/11/2021 11:16:00 AM EDT - 03/12/2021 10:08:00 AM EDT VITRECTOMY SCLERAL BUCKLE SILICONE OIL RIGHT EYE RETINAL DET [facility] VITRECTOMY SCLERAL BUCKLE SILICONE OIL R IGHT EYE RETINAL DET Patient discharged. Outpatient Attender: ISAIAH RUIZ MD 03/10/2021 07:43:5 0 PM EDT [facility] Outpatient Attender: ISAIAH RUIZ MD 03/10/2021 03:51:0 0 PM EDT COVID ONLY [facility] COVID ONLY Outpatient [address] [facility], [facility] [address] 02/11/2021 12:00:00 AM EDT eCW1 (Critical access hospital) Outpatient Attender: CAMILLE QUINONEZ MD Medical [facility] 02/03 10:30:00 AM EDT MEDENT (Camille Quinonez MD) Unknown [address] [facility] [place] [address] 12/22/2020 12:00:00 AM EST eCW1 (Critical access hospital) Outpatient Attender: CAMILLE QUINONEZ MD Medical Building 12/03 09:45:00 AM EST MEDENT (Camille Quinonez MD) Outpatient Attender: CAMILLE QUINONEZ MD Medical Building 10/02 09:15:00 AM EST MEDENT (Camille Quinonez MD) Outpatient Attender: CAMILLE QUINONEZ MD Medical Building 09/01 10:15:00 AM EDT MEDENT (Camille Quinonez MD) Medications Medication Brand Name Start Date Product Form Dose Route Admi nistrative Instructions Pharmacy Instructions Status Indications Reaction Description Data Source(s) No Active Medications 06/25/2021 12:00:00 AM EDT completed MEDENT ([facility]) POLYETHYLENE GLYCOL 3350 142 MG/ML Oral Solution [Miralax] M iralax 05/27/2021 12:00:00 AM EDT active M EDENT ([facility], ) Magnesium Hydroxide 80 MG/ML Oral Suspension Milk Of Magnesi a 05/27/2021 12:00:00 AM EDT ORAL active M EDENT ([facility], ) atorvastatin 20 MG Oral Tablet Atorvastatin Calcium 20 MG Atorvastatin Calcium 20 MG 02/12/2021 12:00:00 AM EDT 1.0 {tablet} activ e Atorvastatin Calcium 20 MG eCW1 ([facility]) atorvastatin 20 MG Oral Tablet Atorvastatin Calcium 20 MG Atorvastatin Calcium 20 MG 02/12/2021 12:00:00 AM EDT 1.0 {tablet} activ e Atorvastatin Calcium 20 MG eCW1 ([facility]) atorvastatin 20 MG Oral Tablet Atorvastatin Calcium 20 MG Atorvastatin Calcium 20 MG 02/12/2021 12:00:00 AM EDT 1.0 {tablet} activ e Atorvastatin Calcium 20 MG eCW1 ([facility]) atorvastatin 20 MG Oral Tablet Atorvastatin Calcium 20 MG Atorvastatin Calcium 20 MG 02/12/2021 12:00:00 AM EDT 1.0 {tablet} activ e Atorvastatin Calcium 20 MG eCW1 ([facility]) atorvastatin 20 MG Oral Tablet Atorvastatin Calcium 20 MG Atorvastatin Calcium 20 MG 02/12/2021 12:00:00 AM EDT 1.0 {tablet} activ e Atorvastatin Calcium 20 MG eCW1 ([facility]) atorvastatin 20 MG Oral Tablet Atorvastatin Calcium 20 MG Atorvastatin Calcium 20 MG 02/12/2021 12:00:00 AM EDT 1.0 {tablet} active eCW1 ([facility]) atorvastatin 20 MG Oral Tablet Atorvastatin Calcium 20 MG Atorvastatin Calcium 20 MG 02/12/2021 12:00:00 AM EDT 1.0 {tablet} activ e Atorvastatin Calcium 20 MG eCW1 ([facility]) atorvastatin 20 MG Oral Tablet Atorvastatin Calcium 20 MG Atorvastatin Calcium 20 MG 02/12/2021 12:00:00 AM EDT 1.0 {tablet} activ e Atorvastatin Calcium 20 MG eCW1 ([facility]) Insurance Providers Payer name Policy type / Coverage type Policy ID Covered republican ID Covered republican's relationship to isaac Policy Isaac Plan Information [facility] COMMUNITY PLAN [facility] [id number] SP [id number] D Managed Care [facility] [id number] S [id number] Medicaid Dental S [id number] [facility] [id number] SP [id number] UN COMMUNITY PLAN [facility] [id number] SP [id number] TOMASA I[place]HO [id number] SP [id number] MEDICAID [id number] Macie [id number] MEDICAID [id number] [employer] [id number] Self [id number] [employer] [id number] Self [id number] ANSI-Not a Secondary Insurance [id number] ANSI-Commercial [id number] ANSI-Commercial [id number] ANSI-Commercial [id number] [facility] [facility] [place] - [id number] 18 [id number] [place] [place] - [id number] 18 [id number] T[place]A [id number] SP [id number] [facility] [id number] S [id number] ANSI-Commercial [id number] ANSI-Commercial [id number] ANSI-Commercial [id number] [facility] HEA [id number] S [id number] [facility] Commercial [id number] Self [id number] [facility] Health Maintenance Organization ([facility]) [id number] Self [id number] [employer] [id number] 18 [id number] [employer] [place] PPO [id number] [facility] Health Maintenance Organization (HMO) [id number] Self [employer] COMMUNITY PLAN MCDO [id number] SP [id number] UNHC COMMUNITY PLAN [facility] [id number] SP [id number] [facility] HEA [id number] S [id number] SELF PAY ONLY [id number] SP [id number] [facility](MCAID) O [id number] S [id number] [facility] [id number] SP [id number] MEDICAID [id number] SP [id number] MEDICAID PI PI ANSI-Medicaid [id number] ANSI-Not a Secondary Insurance [id number] Problems, Conditions, and Diagnoses Code Display Name Description Problem Type Effective Dates Data Source(s) E66.01 [id number] Morbid (severe) obesity due to excess c alories Problem 10/01/2021 12:00:00 AM EST eCW1 ([facility]) Z68.38 [id number] Body mass index [BMI] 38.0-38.9, adult Pr oblem 10/01/2021 12:00:00 AM EST eCW1 ([facility]) [id number] Pure hypercholesterolemia Pure hypercholesterolemia Pr oblem 07/29/2021 12:00:00 AM EDT MEDENT ([facility] ) H33.011 89804836 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 Problem 07/09/2021 12:00:00 AM EDT eCW1 ([facility]) M81.0 943469485 Postmenopausal bone loss Problem 07/09/2021 12:00:00 AM EDT eCW1 ([facility]) Z12.4 [id number] Cervical cancer screening Problem 02/11/2021 12:00:00 AM EDT eCW1 ([facility]) Z12.11 [id number] Colon cancer screening Problem 02/11/2021 12 :00:00 AM EDT eCW1 ([facility]) Z12.39 [id number] Encounter for screen ing for malignant neoplasm of breast, unspecified screening modality Problem 02/11/2021 12:00:00 AM EDT eC W1 ([facility]) Surgeries/Procedures Procedure Description Date Indications Data Source(s) RADEX FOOT COMPLETE MINIMUM 3 VIEWS 09/22/2021 12:00:0 0 AM EST MEDENT ([facility] ) RADEX FOOT COMPLETE MINIMUM 3 VIEWS 08/25/2021 12:00:0 0 AM EDT MEDENT ([facility] ) APPLICATION SHORT LEG CAST BELOW KNEE-TOE 07/27/2021 1 2:00:00 AM EDT MEDENT ([facility] ) RADEX FOOT COMPLETE MINIMUM 3 VIEWS 07/27/2021 12:00:0 0 AM EDT MEDENT ([facility] ) OFFICE OUTPATIENT VISIT 25 MINUTES 07/14/2021 12:00:00 AM EDT MEDENT (Camille Quinonez MD) RADEX FOOT COMPLETE MINIMUM 3 VIEWS 07/03/2021 12:00:0 0 AM EDT MEDENT ([facility]) FX Metatarsal W/O Manipulation 06/25/2021 12:00:00 AM EDT MEDENT ([facility]) RADEX FOOT COMPLETE MINIMUM 3 VIEWS 06/25/2021 12:00:0 0 AM EDT MEDENT ([facility]) OFFICE OUTPATIENT VISIT 25 MINUTES 06/25/2021 12:00:00 AM EDT MEDENT ([facility]) ECG ROUTINE ECG W/LEAST 12 LDS W/I&R 05/13/2021 12:00: 00 AM EDT MEDENT (Camille Quinonez MD) OFFICE OUTPATIENT VISIT 25 MINUTES 05/13/2021 12:00:00 AM EDT MEDENT (Camille Quinonez MD) OFFICE OUTPATIENT VISIT 25 MINUTES 04/07/2021 12:00:00 AM EDT MEDENT (Camille Quinonez MD) ECG ROUTINE ECG W/LEAST 12 LDS W/I&R 02/03/2021 12:00: 00 AM EDT MEDENT (Camille Quinonez MD) OFFICE OUTPATIENT VISIT 25 MINUTES 02/03/2021 12:00:00 AM EDT MEDENT (Camille Quinonez MD) OFFICE OUTPATIENT VISIT 25 MINUTES 12/03/2020 12:00:00 AM EST MEDENT (Camille Quinonez MD) ECG ROUTINE ECG W/LEAST 12 LDS W/I&R 10/02/2020 12:00: 00 AM EST MEDENT (Camille Quinonez MD) ECG ROUTINE ECG W/LEAST 12 LDS W/I&R 09/01/2020 12:00: 00 AM EDT MEDENT (Camille Quinonez MD) Results ID Date Data Source [id number] 10/16/2021 10:43:00 AM EST [facility] Name Value Range Interpretation Code Description Data Eliane rce(s) Supporting Document(s) SARS [facility]TIGEN [facility] This lab was ordered by CRUZ bustillo nd reported by [facility]. ID Date Data Source [id number] 09/03/2021 09:30:00 AM EDT [facility] Name Value Range Interpretation Code Description Data Eliane rce(s) Supporting Document(s) SARS-CoV-2 (COVID-19) RNA [Presence] in Respiratory specimen by JEAN-CLAUDE with probe detection Not Detected [facility] This lab was ordered by [facility] and reported by [employer]. ID Date Data Source LIPID PANEL (CARDIAC RISK) 07/09/2021 12:00:00 AM EDT eCW1 ( [facility]) Name Value Range Interpretation Code Description Data Eliane rce(s) Supporting Document(s) Triglyceride [Mass/volume] in Serum or Plasma by calculation 181 <150 TRIGLYCERIDES LEVEL eCW1 ([facility]) Cholesterol [Moles/volume] in Serum or Plasma 209 <200 CHOLESTEROL LEVEL eCW1 ([facility]) Cholesterol in LDL [Mass/volume] in Serum or Plasma by calculation 121 <100 LDL CHOLESTEROL eCW1 ([facility]) Cholesterol in HDL [Moles/volume] in Serum or Plasma 52 >40 HDL CHOLESTEROL eCW1 ([facility]) 157 NON-HDL-C eCW1 (Count includes the [facility]) 4.019 <5 CHOLESTEROL RISK RATIO eCW1 ([facility]) ID Date Data Source [id number] 07/09/2021 12:00:00 AM EDT eCW1 ([facility]) Name Value Range Interpretation Code Description Data Eliane rce(s) Supporting Document(s) Hemoglobin A1c/Hemoglobin.total in Blood 5.5 HEMOGLOBIN A1c eCW1 ([facility]) ID Date Data Source Comprehensive Metabolic Profile (CMP) 07/09/2021 12:00:00 AM EDT eCW1 ([facility]) Name Value Range Interpretation Code Description Data Eliane rce(s) Supporting Document(s) 80 70-100 GLUCOSE, FASTING eCW1 ([facility]) 18 7-18 BLOOD UREA NITROGEN eCW1 ([facility]) 1.09 0.55-1.30 CREATININE FOR GFR eCW1 ([facility]) 54.0 >45 GLOMERULAR FILTRATION RATE eCW 1 ([facility]) 143 136-145 SODIUM LEVEL eCW1 ([facility]) 4.3 3.5-5.1 POTASSIUM SERUM eCW1 ([facility]) 110 98-107 CHLORIDE LEVEL eCW1 ([facility]) 28 21-32 CARBON DIOXIDE LEVEL eCW1 ([facility]) 18 7-37 AST/SGOT eCW1 (Count includes the [facility]) 9.3 8.8-10.2 CALCIUM LEVEL eCW1 ([facility]) 164 45-117 ALKALINE PHOSPHATASE eCW1 ([facility]) 35 12-78 ALT/SGPT eCW1 (Count includes the [facility]) 0.4 0.2-1.0 BILIRUBIN,TOTAL eCW1 ([facility]) 3.6 3.2-5.2 ALBUMIN eCW1 (Count includes the [facility]) 7.2 6.4-8.2 TOTAL PROTEIN eCW1 ([facility]) 1.0 1.2-2.2 ALBUMIN/GLOBULIN RATIO eCW1 ([facility]) ID Date Data Source CPK CREATINE PHOSPHOKINASE 07/09/2021 12:00:00 AM EDT eCW1 ( [facility]) Name Value Range Interpretation Code Description Data Eliane rce(s) Supporting Document(s) 98 24-192 CPK CREATINE PHOSPHOKINASE eCW 1 ([facility]) ID Date Data Source [id number] 03/25/2021 08:31:00 AM EDT [facility] [place], [place] [address]JCRVNHW NAME: FERNANDA BROTHERSDATE OF : 1960REPORT: OPERATIONPATIENT NUMBER: [id number] STATUS: SDMEDICAL RECORD NUMBER: [id number] OF ADMISSION: 1DATE OF DISCHARGE:ROOM: 01DATE OF PROCEDURE: 1SURGEON: DANIEL RebollarREOPERATIVE DIAGNOSIS: Retinal detachment with proliferativevitreoretinopathy, right eye.POSTOPERATIVE DIAGNOSIS: Retinal detachment with proliferativevitreoretinopathy, right eye.OPERATIVE PROCEDURE:1. Pars plana vitrectomy, right eye.2. Scleral buckle, right eye.3. Membrane peeling, right eye.4. Endolaser, right eye.5. Anterior chamber washout of silicone oil.6. Posterior capsulotomy, right eye.7. Injection of silicone oil.COMPLICATIONS: None.ANESTHESIA: General with cutdown block.PROCEDURE: This is a 60-year-old female who is status post retinaldetachments with giant retinal tears in both eyes. I last repaired theright eye back in 08/2016. She did well for about 5 years and then lastweek she noticed decreased vision. Dr. [place]osed her with retinal detachment. After discussing risks, benefits,and alternatives, she elected to proceed with surgical correction ofcondition. Consent was signed and placed in the patient's chart. On theday of surgery, the patient was brought to operating room in stablecondition by the operating room staff. The anesthesiology teamadministered general anesthesia. The right eye was then prepped and drapedin the usual sterile ophthalmic fashion. Attention was turned to the righteye. A 360-degree conjunctival peritomy was achieved. Then relaxingincisions were created at 3 and 9 o'clock position. Next, curved Stevenswere used to open up all four quadrants. Of note, the dissection waschallenging because the patient already had two vitrectomies, so there wassome fibrosis on the conj. Next, the four recti muscles were isolated witha [place] muscle hook and looped off with 2-0 silk. Next, the sclera wasinspected and noted to be free of any thin patches. Next, a 41 band waslooped under each of the four recti muscles and the band was cinched intoplace in superonasal quadrant with a 70 Watzke sleeve. Next, 4-0 Mersilenewas used to suture the band to the sclera, one suture per quadrant in eachof the four quadrants, at the greater curvature of the globe using amattress-style suture. Next, the buckle was left loose and we proceeded tothe vitrectomy portion of the procedure. The operating microscope wasbrought to the head of the bed. Three 25-gauge valved New trocars wereinserted 3.5 mm from the limbus as the patient was pseudophakic - first oneinferotemporally, next one superotemporally, next one superonasally - allin a beveled fashion. Infusion cannula was inserted into inferotemporaltrocar. The tip of the infusion was visualized to be in vitreous cavitybefore the infusion was turned on and line was taped in place withSteri- Strip. The patient was found to have a small residual silicone oilbubble in the posterior chamber. The viscous fluid connector kit was usedto remove the silicone oil bubble. Paracentesis was created at 12 o'clockand then anterior chamber washout was used to wash out the anterior chamberto remove residual silicone oil bubbles that had emulsified. The patientalso had a fairly dense p osterior capsular opacity, which made thevisualization posteriorly quite difficult, so a capsulotomy was achieved towiden the view. The eyeball remained stable. Next, the retina was viewedwith the [facility] wide-field viewing system. The patient already had aretinectomy from approximately 4 o'clock to 8 o'clock and there was aninferior retinal detachment, macula off. Dilute Kenalog was sprayed overthe posterior pole to stain the vitreous. All the vitreous had beenremoved, but the Kenalog *------* some preretinal proliferativevitreoretinopathy on the macula and all the way out to the edge of theretinectomy. I toggled between the green lens and the contact lens forhighest magnification direct viewing. I also used [place] Blue to stainthe epiretinal membrane and internal limiting membrane. I peeled multiplelayers of the epiretinal membrane from overlying the posterior pole,overlying the macula, then I restained with [place] Blue and peeled theinternal limiting membrane from around the macula and posterior polecompletely. I then peeled out as much as possible all the way to theretinectomy. It appeared that the patient had a slit break at 6 o'clockjust posterior to the previous retinectomy. I used intraocular diathermyto posteriorize the retinectomy. I also extended the retinectomy to the 3and 9 o'clock position on either side, so the intraocular diathermyoutlined the border that I used to outline the border of the retinectomyand then I used the suction cutter to excise the retina along the borderoutlined by the intraocular diathermy. I removed all the anterior retinathat connected the previous retinotomy to the new inferior retinotomy. Hemostasis was achieved using elevated intraocular pressure. I then putdown perfluorocarbon to flatten the retina and it flattened out quite well.I had to unroll the nasal edge of the retinectomy with the flex loop. Ofnote, I also used the flex loop to peel as much of the epiretinal membranesas possible. Next, an air-fluid exchange was achieved and the retinaremained flat once I removed the fluid and then the perfluorocarbon. I didtwo BSS washes to ensure that all the perfluorocarbon bubbles were removed.There was a small area of preretinal hemorrhage at the edge of theretinectomy temporal and nasal. This was removed with the soft tip cannulapassively. Next, I tightened the buckle and then trimmed the buckle edges.There was good buckle height supporting the 3 and 9 o'clock horns of theretinotomy. I lasered the horns of the retinotomy at 3 and 9 o'clock aswell. Next, I injected 5.5 cc of silicone oil to get a nice fill in theposterior chamber. The three trocars were then removed. 6-0 plain wasused to close the three sclerotomy sites. Kefzol was sprayed over theoutside of the buckle to wash this out. I injected a sub-Tenon's block of4 percent lidocaine and 0.75 percent Marcaine in the inferotemporalquadrant. The conjunctiva was reapproximated at the 3 and 9 o'clockposition using 6-0 plain gut sutures. The anesthesiologist was instructedto give 500 mg of IV Diamox. This concluded the case. The drapes wereremoved. The eye was washed with wet-and-dry and 4x4. A drop of timololand Maxitrol ointment was placed in the r ight. The right eye was covered,patched, and Horowitz shield taped in place. The patient was instructed to lieface down and follow up tomorrow morning.DICTATED BY: DEVON Rebollarictated: 03/11/2021 18:06DT: 03/11/2021 18:13Job #: [id number]: [facility] computer generated reports are not confirmed orauthenticated unless they are signed by the providerElectronically Authenticated by:ISAIAH RUIZ MD On 03/25/2021 08:31 AM EDT Name Value Range Interpretation Code Description Data Eliane rce(s) Supporting Document(s) ID Date Data Source [id number] 03/10/2021 05:08:26 PM EDT [facility] [place] [facility] Name Value Range Interpretation Code Description Data Eliane rce(s) Supporting Document(s) SODIUM 144 mmol/L (136-145) [facility] POTASSIUM 4.0 mmol/L (3.6-5.2) [facility] CHLORIDE 106 mmol/L (100-108) [facility] CO2 34 mmol/L (22-31) H [facility] ANION GAP 4 mmol/L (7-16) L [facility] UREA NITROGEN 17 mg/dL (7-24) [facility] CREATININE 1.23 mg/dL (0.60-1.00) H [facility] BUN/CREAT RATIO 13.8 RATIO (10.0-20.0) [facility] GLUCOSE 81 mg/dL (70-99) [facility] CALCIUM 9.7 mg/dL (8.4-10.2) [facility] [facility] GFR 44 ml/min/1.73m2 (>59) L [facility] [place] [facility] GFR ( AMER) 54 ml/min/1.73m2 (>59) L [facility] GFR INTERPRETATION [facility] --NORMAL KIDNEY FUNCTION OR MILD DISEASE - GFR >OR= 60CHRONIC KIDNEY DISEASE - GFR 15 - 59RENAL FAILURE - GFR <15 Est. GFR calculation based on the MDRDstudy equation, which assumes a steadystate for creatinine. Est. GFR should notbe used for medication dosing. ID Date Data Source [id number] 03/10/2021 04:03:00 PM EDT [facility] Name Value Range Interpretation Code Description Data Eliane rce(s) Supporting Document(s) SARS coronavirus 2 RNA [Presence] in Res piratory specimen by JEAN-CLAUDE with probe detection NOT DETECTED [facility] This lab was reported by [facility]. ID Date Data Source [id number] 03/10/2021 07:43:49 PM EDT [facility] [place] [facility] Name Value Range Interpretation Code Description Data Eliane rce(s) Supporting Document(s) SPECIMEN DESCRIPTION [facility] COVID19 RESULT (NDET) [facility] [place] [facility] NEGATIVE COVID-19 RESULTS DONOT PRECLUDE COVID-2019 INFECTION ANDSHOULD NOT BE USED THE SOLE BASISFOR PATIENT MANAGEMENT DECISIONS.THIS ASSAY AMPLIFIES AND DETECTS THE TARGETRNA USING ISOTHERMAL HELICASE DEPENDENTAMPLIFICATION.TESTING PERFORMED ON THE [employer].THE [place]. FDA HAS MADE THIS TEST AVAILABLEUNDER AN EMERGENCY USE AUTHORIZATION(EUA) FOR THE DETECTION AND/OR DIAGNOSISOF THE VIRUS THAT CAUSES COVID-19. FIRST TEST [facility] [place] [facility] [employer] [employer] SYMPTOMATIC [facility] [place] [facility] [place] DATE OF SYMPT ONSET [facility] H[facility]ED [facility] [place] [facility] [place] [facility] [place] [facility] [place] [facility] ID Date Data Source FREE T4 & TSH PANEL 02/11/2021 12:00:00 AM EDT eCW1 ([facility]) Name Value Range Interpretation Code Description Data Eliane rce(s) Supporting Document(s) 2.210 0.358-3.740 THYROID STIMULATING HORM ONE eCW1 ([facility]) 0.89 0.76-1.46 FREE T4 eCW1 (Count includes the [facility]) ID Date Data Source CBC with Differential 02/11/2021 12:00:00 AM EDT eCW1 ([facility]) Name Value Range Interpretation Code Description Data Eliane rce(s) Supporting Document(s) 14.8 12.0-15.5 HEMOGLOBIN eCW1 ([facility]) 4.63 4.00-5.40 RED BLOOD COUNT eCW1 ([facility]) 5.8 4.0-10.0 WHITE BLOOD COUNT eCW1 ([facility]) 97.4 80.0-96.0 MEAN CORPUSCULAR VOLUME e CW1 ([facility]) 45.1 36.0-47.0 HEMATOCRIT eCW1 ([facility]) 32.0 27.0-33.0 MEAN CORPUSCULAR HEMOGLOB IN eCW1 ([facility]) 32.8 32.0-36.5 MEAN CORPUSCULAR HGB CONC eCW1 ([facility]) 12.3 11.5-14.5 RED CELL DISTRIBUTION WID TH eCW1 ([facility]) 30.2 24.0-44.0 LYMPH % eCW1 (Count includes the [facility]) 53.4 36.0-66.0 NEUTROPHILS % eCW1 ([facility]) 276 150-450 PLATELET COUNT, AUTOMATED eCW1 ([facility]) 1.7 0.0-3.0 EOS % eCW1 ([facility] includes the [facility]) 13.6 2.0-8.0 MONO % eCW1 (Count includes the [facility]) 0.9 0.0-1.0 BASO % eCW1 (Count includes the [facility]) 3.1 1.5-8.5 NEUTROPHILS # eCW1 ([facility]) 1.8 1.5-5.0 LYMPH # eCW1 (Count includes the [facility]) 0.8 0.0-0.8 MONO # eCW1 (Count includes the [facility]) 0.1 0.0-0.2 BASO # eCW1 ([facility] includes the [facility]) 0.1 0.0-0.5 EOS # eCW1 (Count includes the [facility]) ID Date Data Source [id number] 10/20/2020 12:00:00 AM EST [facility] Name Value Range Interpretation Code Description Data Eliane rce(s) Supporting Document(s) SARS-CoV2 Rapid Antigen [facility] This lab was ordered by [facility] and reported by [facility]. ID Date Data Source [id number] 10/16/2020 12:00:00 AM EST [facility] Name Value Range Interpretation Code Description Data Eliane rce(s) Supporting Document(s) 2019-nCoV RNA XXX JEAN-CLAUDE+probe-Imp [facility] This lab was ordered by [facility] and reported by [employer]. ID Date Data Source [id number] 10/01/2020 12:00:00 AM EST [facility] Name Value Range Interpretation Code Description Data Eliane rce(s) Supporting Document(s) SARS-CoV2 Rapid Antigen [facility] This lab was ordered by [facility] and reported by [facility]. Procedure Social History Code Duration Value Status Description Data Source(s ) Smoking 10/16/2021 12:00:00 AM EST Former Smoker completed Former Smoker eCW1 ([facility]) Smoking 10/01/2021 12:00:00 AM EST Former Smoker completed Former Smoker eCW1 ([facility]) Smoking 08/07/2021 12:00:00 AM EDT Patient is a former smoker completed Patient is a former smoker MEDENT ([facility]) Smoking 07/09/2021 12:00:00 AM EDT Former Smoker completed Former Smoker eCW1 ([facility]) Smoking 07/09/2021 12:00:00 AM EDT Former Smoker completed Former Smoker eCW1 ([facility]) Smoking 07/09/2021 12:00:00 AM EDT Former Smoker completed Former Smoker eCW1 ([facility]) Smoking 07/09/2021 12:00:00 AM EDT Former Smoker completed Former Smoker eCW1 ([facility]) Smoking 02/11/2021 12:00:00 AM EDT Former Smoker completed Former Smoker eCW1 ([facility]) Smoking 02/11/2021 12:00:00 AM EDT Former Smoker completed Former Smoker eCW1 ([facility]) Smoking 02/11/2021 12:00:00 AM EDT Former Smoker completed Former Smoker eCW1 ([facility]) Smoking 02/11/2021 12:00:00 AM EDT Former Smoker completed Former Smoker eCW1 ([facility]) Vital Signs ID Date Data Source UNK Name Value Range Interpretation Code Description Data Source(s) Body weight 187.2 [lb_av] 187.2 [lb_av] eCW1 ([facility]) Body weight 84.91 kg 84.91 kg eCW1 ([facility]) Body height 64 [in_i] 64 [in_i] eCW1 ([facility]) Body mass index (BMI) [Ratio] 32.13 kg/m2 32.13 kg/m2 eCW1 ([facility]) Heart rate 90 /min 90 /min eCW1 ([facility]) Respiratory rate 18 /min 18 /min [facility] Body temperature 96.8 [degF] 96.8 [degF] eCW1 ( [facility]) Systolic blood pressure 112 mm[Hg] 112 mm[Hg] e CW1 ([facility]) Diastolic blood pressure 78 mm[Hg] 78 mm[Hg] eCW1 ([facility]) Systolic blood pressure 104 mm[Hg] 104 mm[Hg] Yasir KANG (Cmaille Quinonez MD) Body temperature 97.3 [degF] 97.3 [degF] MEDENT (Camille Quinonez MD) Diastolic blood pressure 64 mm[Hg] 64 mm[Hg] MEDENT (Camille Quinonez MD) Body height 64 [in_i] 64 [in_i] MEDENT (Camille Quinonez MD) 5'4" Body weight 187.00 [lb_av] 187.00 [lb_av] MEDEN T (Camille Quinonez MD) Body mass index (BMI) [Ratio] 32.1 kg/m2 32.1 k g/m2 MEDENT (Camille Quinonez MD) Heart rate 69 /min 69 /min [place] (Camille Quinonez MD) Oxygen saturation in Arterial blood by Pulse oximetry 96 % 96 % MEDENT (Camille Quinonez MD) Body mass index (BMI) [Ratio] 33.1 kg/m2 33.1 k g/m2 MED[facility] (Camille Quinonez MD) Body temperature 97.3 [degF] 97.3 [degF] MEDENT (Camille Quinonez MD) Systolic blood pressure 116 mm[Hg] 116 mm[Hg] Yasir KANG (Camille Quinonez MD) Diastolic blood pressure 77 mm[Hg] 77 mm[Hg] MEDENT (Camille Quinonez MD) Heart rate 66 /min 66 /min MEDENT (Camille Quinonez MD) Oxygen saturation in Arterial blood by Pulse oximetry 95 % 95 % MEDENT (Camille Quinonez MD) Body weight 193.00 [lb_av] 193.00 [lb_av] MEDEN T (Camille Quinonez MD) Body height 64 [in_i] 64 [in_i] MEDENT (Camille Quinonez MD) 5'4" Body temperature 97.3 [degF] 97.3 [degF] MEDENT (Camille Quinonez MD) Systolic blood pressure 116 mm[Hg] 116 mm[Hg] M EDENT (Camille Quinonez MD) Body mass index (BMI) [Ratio] 33.1 kg/m2 33.1 k g/m2 MEDENT (Camille Quinonez MD) Diastolic blood pressure 77 mm[Hg] 77 mm[Hg] MEDENT (Camille Quinonez MD) Heart rate 66 /min 66 /min MEDENT (Camille Quinonez MD) Oxygen saturation in Arterial blood by Pulse oximetry 95 % 95 % MEDENT (Camille Quinonez MD) Body weight 193 [lb_av] 193 [lb_av] eCW1 ([facility]) Body height 64 [in_i] 64 [in_i] eCW1 ([facility]) Body mass index (BMI) [Ratio] 33.12 kg/m2 33.12 kg/m2 W1 ([facility]) Heart rate 84 /min 84 /min eCW1 ([facility]) Respiratory rate 18 /min 18 /min [facility] Body temperature 96.9 [degF] 96.9 [degF] eCW1 ( [facility]) Systolic blood pressure 110 mm[Hg] 110 mm[Hg] e CW1 ([facility]) Diastolic blood pressure 78 mm[Hg] 78 mm[Hg] eCW1 ([facility]) Body height 63 [in_i] 63 [in_i] MEDENT ([facility] ) 5'3" Body weight 195.38 [lb_av] 195.38 [lb_av] MEDEN T ([facility]) Body mass index (BMI) [Ratio] 34.6 kg/m2 34.6 k g[facility] Systolic blood pressure 110 mm[Hg] 110 mm[Hg] EDENT ([facility]) Diastolic blood pressure 78 mm[Hg] 78 mm[Hg] [facility] Body height 64 [in_i] 64 [in_i] MEDENT ([facility]) 5'4" Body height 64 [in_i] 64 [in_i] MEDENT ([facility]) 5'4" Body weight 195.00 [lb_av] 195.00 [lb_av] MEDEN T ([facility]) Body mass index (BMI) [Ratio] 33.5 kg/m2 33.5 k g/m2 [facility] ([facility]) [place] body weight 120 [lb_av] 120 [lb_av] MEDEN T ([facility]) Body weight 88.452 kg 88.452 kg [facility] ([facility]) Body surface area Derived from formula 1.94 m2 1.94 m2 [facility] ([facility]) Body weight 195.00 [lb_av] 195.00 [lb_av] MEDEN T ([facility]) Body mass index (BMI) [Ratio] 33.5 kg/m2 33.5 k g/m2 [facility] ([facility]) [place] body weight 120 [lb_av] 120 [lb_av] MEDEN T ([facility]) Body weight 88.452 kg 88.452 kg [facility] ([facility]) Body surface area Derived from formula 1.94 m2 1.94 m2 [facility] ([facility]) Body height 64 [in_i] 64 [in_i] MEDENT (Camille Quinonez MD) 5'4" Body weight 193.12 [lb_av] 193.12 [lb_av] MEDEN T (Camille Quinonez MD) Body mass index (BMI) [Ratio] 33.1 kg/m2 33.1 k g/m2 MEDENT (Camille Quinonez MD) Body temperature 97.2 [degF] 97.2 [degF] MEDENT (Camille Quinonez MD) Heart rate 63 /min 63 /min LIZZIEENT (Camille Quinonez MD) Oxygen saturation in Arterial blood by Pulse oximetry 96 % 96 % MEDENT (Camille Quinonez MD) Systolic blood pressure 111 mm[Hg] 111 mm[Hg] M EDENT (Camille Quinonez MD) Diastolic blood pressure 76 mm[Hg] 76 mm[Hg] MEDENT (Camille Quinonez MD) Body height 64 [in_i] 64 [in_i] MEDENT (Camille Quinonez MD) 5'4" Body weight 190.00 [lb_av] 190.00 [lb_av] MEDEN T (Camille Quinonez MD) Diastolic blood pressure 67 mm[Hg] 67 mm[Hg] MEDENT (Camille Quinonez MD) Body mass index (BMI) [Ratio] 32.6 kg/m2 32.6 k g/m2 MEDENT (Camille Quinonez MD) Body temperature 97.7 [degF] 97.7 [degF] MEDENT (Camille Quinonez MD) Systolic blood pressure 100 mm[Hg] 100 mm[Hg] M EDENT (Camille Quinonez MD) Heart rate 47 /min 47 /min MEDENT (Camille Quinonez MD) Oxygen saturation in Arterial blood by Pulse oximetry 96 % 96 % MEDENT (Camille Quinonez MD) Body height 64 [in_i] 64 [in_i] eCW1 ([facility]) Body mass index (BMI) [Ratio] 33.33 kg/m2 33.33 kg/m2 eCW1 ([facility]) Diastolic blood pressure 60 mm[Hg] 60 mm[Hg] eCW1 ([facility]) Body temperature 96.7 [degF] 96.7 [degF] eCW1 ( [facility]) Systolic blood pressure 100 mm[Hg] 100 mm[Hg] e CW1 ([facility]) Body weight 194.2 [lb_av] 194.2 [lb_av] eCW1 ([facility]) Heart rate 54 /min 54 /min eCW1 ([facility]) Respiratory rate 18 /min 18 /min [facility]CW[facility] Body height 64 [in_i] 64 [in_i] MEDENT (Camille Quinonez MD) 5'4" Body weight 196.25 [lb_av] 196.25 [lb_av] MEDEN T (Camille Quinonez MD) Body mass index (BMI) [Ratio] 33.7 kg/m2 33.7 k g/m2 MED[facility] (Camille Quinonez MD) Body temperature 97.3 [degF] 97.3 [degF] MEDENT (Camille Quinonez MD) Systolic blood pressure 105 mm[Hg] 105 mm[Hg] M EDENT (Camille Quinonez MD) Diastolic blood pressure 68 mm[Hg] 68 mm[Hg] MEDENT (Camille Quinonez MD) Heart rate 61 /min 61 /min MEDENT (Camille Quinonez MD) Oxygen saturation in Arterial blood by Pulse oximetry 92 % 92 % MEDENT (Camille Quinonez MD) Respiratory rate 18 /min 18 /min MEDENT ( Camille Quinonez MD) Diastolic blood pressure 69 mm[Hg] 69 mm[Hg] MEDENT (Camille Quinonez MD) Body height 64 [in_i] 64 [in_i] MEDENT (Camille Quinonez MD) 5'4" Body weight 198.00 [lb_av] 198.00 [lb_av] MEDEN T (Camille Quinonez MD) Body mass index (BMI) [Ratio] 34.0 kg/m2 34.0 k g/m2 MEDENT (Camille Quinonez MD) Body temperature 97.5 [degF] 97.5 [degF] MEDENT (Camille Quinonez MD) Systolic blood pressure 115 mm[Hg] 115 mm[Hg] M EDENT (Camille Quinonez MD) Heart rate 61 /min 61 /min MEDENT (Camille Quinonez MD) Oxygen saturation in Arterial blood by Pulse oximetry 95 % 95 % MEDENT (Camille Quinonez MD) Body mass index (BMI) [Ratio] 33.7 kg/m2 33.7 k g/m2 MEDENT (Camille Quinonez MD) Body weight 196.38 [lb_av] 196.38 [lb_av] MEDEN T (Camille Quinonez MD) Systolic blood pressure 114 mm[Hg] 114 mm[Hg] M EDENT (Camille Quinonez MD) Body temperature 97.0 [degF] 97.0 [degF] MEDENT (Camille Quinonez MD) Diastolic blood pressure 69 mm[Hg] 69 mm[Hg] LIZZIEENT (Camille Quinonez MD) Oxygen saturation in Arterial blood by Pulse oximetry 96 % 96 % GAVIOTA (Camille Quinonez MD) Heart rate 64 /min 64 /min GAVIOTA (Camille Quinonez MD) Body height 64 [in_i] 64 [in_i] MEDENT (Camille Quinonez MD) 5'4" Patient Treatment Plan of Care Planned Activity Planned Date Details Description Data Source (s) atorvastatin 20 MG Oral Tablet 02/12/2021 12:00:00 AM EDT eCW1 ([facility]) atorvastatin 20 MG Oral Tablet 02/12/2021 12:00:00 AM EDT eCW1 ([facility]) atorvastatin 20 MG Oral Tablet 02/12/2021 12:00:00 AM EDT eCW1 ([facility]) atorvastatin 20 MG Oral Tablet 02/12/2021 12:00:00 AM EDT eCW1 ([facility]) atorvastatin 20 MG Oral Tablet 02/12/2021 12:00:00 AM EDT eCW1 ([facility]) atorvastatin 20 MG Oral Tablet 02/12/2021 12:00:00 AM EDT eCW1 ([facility]) atorvastatin 20 MG Oral Tablet 02/12/2021 12:00:00 AM EDT eCW1 ([facility]) atorvastatin 20 MG Oral Tablet 02/12/2021 12:00:00 AM EDT eCW1 ([facility])
--- OUTSIDE RECORDS SUMMARY | 2021-10-20 19:37 | CCD | Continuity of Care Document ---
Author Author Yanira DE LEON PA-C Organization Unknown Address [address] [place] [address] Phone [phone] Care Team Providers Care Car Record Clerk Name Role Phone AngusJayne donovan Yadira RAOC AUTM Laron Jewell PA-C AUTM [phone] Problems Active Problems Provider Date Pure hypercholesterolemia [...] Available Procedures Date Code Description Status 07/27/2021 32055 X-Ray Foot Complete Completed 07/27/2021 59266 Apply Cast Short Leg Completed 07/03/2021 69760 X-Ray Foot Complete Completed 06/25/2021 13949 Office/Outpatient Established Mo d MDM 30-39 Min Completed 06/25/2021 96505 X-Ray Foot Complete Completed 06/25/2021 14001 FX Metatarsal W/O Manipulation C ompleted Medical [...] init S92.345A Nondisp fx of fourth metatar foriegn bone, left foot, init Assessments Date Code Description Provider 08/07/2021 S92.345D Nondisplaced fractur e of fourth metatarsal bone, left foot, subsequent encounter for fracture with routine healing Kristi L. Quinton, [facility] 08/07/2021 S92.335D Nondisplaced fractur e of third metatarsal bone, left foot, subsequent encounter for fracture with routine healing Kristi L. Fish, [facility] 08/07/2021 S92.325D Nondisplaced fractur e of second metatarsal bone, left foot, subsequent encounter for fracture with routine healing Kristi L. Fish, [facility] 07/27/2021 S92.345D Nondisplaced fractur e of fourth metatarsal bone, left foot, subsequent encounter for fracture with routine healing Kristi L. Fish, [facility] 07/27/2021 S92.335D Nondisplaced fractur e of third metatarsal bone, left foot, subsequent encounter for fracture with routine healing Kristi L. Fish, [facility] 07/27/2021 S92.325D Nondisplaced fractur e of second metatarsal bone, left foot, subsequent encounter for fracture with routine healing Kristi L. Fish, [facility] 07/03/2021 S92.345D Nondisplaced fractur e of fourth metatarsal bone, left foot, subsequent encounter for fracture with routine healing Kristi L. Fish, [facility] 07/03/2021 S92.335D Nondisplaced fractur e of third metatarsal bone, left foot, subsequent encounter for fracture with routine healing Kristi L. Fish, [facility] 07/03/2021 S92.325D Nondisplaced fractur e of second metatarsal bone, left foot, subsequent encounter for fracture with routine healing Kristi L. Fish, [facility] 06/25/2021 S92.325A Nondisplaced fractur e of second metatarsal bone, left foot, initial encounter for closed fracture Kristi L. Fish, [facility] 06/25/2021 S92.335A Nondisplaced fractur e of third metatarsal bone, left foot, initial encounter for closed fracture Kristi L. Fish, [facility] 06/25/2021 S92.345A Nondisplaced fractur e of fourth metatarsal bone, left foot, initial encounter for closed fracture Kristi L. Fish, PA-C Plan of Treatment Future Appointment(s):* 08/25/2021 8:45 am - Kristi De Leon PA-C at [place] 08/07/2021 - Kristi De Leon PA-C* S92.345D [...] Status Appt Date Milton De Leon MD S92.391 UNSPECIFIED FX OF LT FOOT INITAL ENCTR FOR OPEN FX Created [address] [facility], [address] [place] [address] [phone]
--- OUTSIDE RECORDS SUMMARY | 2021-10-20 19:37 | CCD | Continuity of Care Document ---
Author Author Yanira DE LEON PA-C Organization Unknown Address [address] [place] [address] Phone [phone] Care Team Providers Care Assistant Dean Of Students Name Role Phone Prakash Jayne Yadira AGUIRRE AUTM Laron Jewell PA-C AUTM [phone] Problems Description No Information Available Social History Type Date Description Comments Sex Unknown ETOH Use Rarely consumes alcohol Tobacco Use Start: Unknown End: Unknown Patient is a former smoker pack a day Allergies, Adverse Reactions, Alerts Description No Known Drug Allergies Medications Description No Active Medications Immunizations Description No Information Available Vital Signs Date Vital Result Comment 06/25/2021 11:44am Height 63 inches 5'3" Weight 195.38 lb BMI (Body Mass Index) 34.6 kg/m2 07/03/2019 2:57pm Body Temperature 97.5 F Height 63 inches 5'3" Weight 198.25 lb BMI (Body Mass Index) 35.1 kg/m2 Results Description No Information Available Procedures Date Code Description Status 07/27/2021 16569 X-Ray Foot Complete Completed 07/27/2021 07509 Apply Cast Short Leg Completed 07/03/2021 74819 X-Ray Foot Complete Completed 06/25/2021 71671 Office/Outpatient Established Mo d MDM 30-39 Min Completed 06/25/2021 87110 X-Ray Foot Complete Completed 06/25/2021 22297 FX Metatarsal W/O Manipulation C ompleted Medical Devices Description No Information Available Encounters Type Date Location Provider Dx Diagnosis Office Visit 07/03/2021 2:15p [place] Kristi De Leon PA-C S92.345 D Nondisp fx of 4th metatarsal bone, l ft, 7thD S92.335D Nondisp fx of 3rd metatarsal bone, l ft, 7thD S92.325D Nondisp fx of 2nd metatarsal bone, l ft, 7thD Office Visit 06/25/2021 11:15a [place] Kristi De Leon [facility] S92.325 A Nondisp fx of second metatarsal bone, left foot, init S92.335A Nondisp fx of third metatars al bone, left foot, init S92.345A Nondisp fx of fourth metatar foreign bone, left foot, init Assessments Date Code Description Provider 07/27/2021 S92.345D Nondisplaced fractur e of fourth metatarsal bone, left foot, subsequent encounter for fracture with routine healing Kristi Martini Quinton [facility] 07/27/2021 S92.335D Nondisplaced fractur e of third metatarsal bone, left foot, subsequent encounter for fracture with routine healing Kristi Martini Quinton [facility] 07/27/2021 S92.325D Nondisplaced fractur e of second metatarsal bone, left foot, subsequent encounter for fracture with routine healing Kristi Martini Quinton [facility] 07/03/2021 S92.345D Nondisplaced fractur e of fourth metatarsal bone, left foot, subsequent encounter for fracture with routine healing Kristi Martini Quinton [facility] 07/03/2021 S92.335D Nondisplaced fractur e of third metatarsal bone, left foot, subsequent encounter for fracture with routine healing Kristi De Leon [facility] 07/03/2021 S92.325D Nondisplaced fractur e of second metatarsal bone, left foot, subsequent encounter for fracture with routine healing Kristi Martini Quinton [facility] 06/25/2021 S92.325A Nondisplaced fractur e of second metatarsal bone, left foot, initial encounter for closed fracture Kristi Martini Quinton [facility] 06/25/2021 S92.335A Nondisplaced fractur e of third metatarsal bone, left foot, initial encounter for closed fracture Kristi Martini Quinton [facility] 06/25/2021 S92.345A Nondisplaced fractur e of fourth metatarsal bone, left foot, initial encounter for closed fracture Kristi De Leon PA-C Plan of Treatment Future Appointment(s):* 08/25/2021 8:45 am - Kristi De Leon PA-C at [place] 07/27/2021 - Kristi De Leon PA-C* S92.345D [...] Status Appt Date Milton De Leon MD S98.419 [facility]PECIFIED [facility] FX Created [address] [facility], [address] [place] [address] [phone]
--- OUTSIDE RECORDS SUMMARY | 2021-10-20 19:37 | CCD ---
Author Author [facility] Organization [facility] Address Unknown Phone Unavailable Care Team Providers Care Forming Yardage Control Operator Name Role Phone Jayne Randall Unavailable PROBLEMS Type Condition ICD9-CM Code [id number] Code Onset Dates Condition S tatus W/U Status Risk SNOMED Code Notes Problem Seasonal allergic rhinitis, unspecified allergic rhinitis trigger J30.2 Active confirmed 597701584 Problem Cataract of right eye, unspecified cataract type H 26.9 Active confirmed 076394861 Problem History of tobacco abuse Z87.891 Active confirmed 9347979827468 Problem Detached retina, right H33.21 Active confirmed 39195422 Problem Total retinal detachment of right eye H33.051 Ac tive confirmed 72849731 Problem History of palpitations Z87.898 Active confirmed 925669278 Problem Cataract of left eye, unspecified cataract type H2 6.9 Active confirmed 989587696 Problem Age-related nuclear cataract of right eye H25.11 Active confirmed 908289833653002 Problem BMI 34.0-34.9,adult Z68.34 Active confirmed 376804145 Problem Mild depression F32.0 Active confirmed 3104 59792 Problem SVT (supraventricular tachycardia) I47.1 Active co nfirmed 2825232 Problem 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 H33.011 Active confirmed 52035567 Problem Ureteral stone with hydronephrosis N13.2 Activ e confirmed 677576697 Problem Mixed hyperlipidemia E78.2 Active confirmed 318660713 Problem Postmenopausal bone loss M81.0 Active confirmed 919157828 Problem Age-related nuclear cataract of left eye H25.12 Active confirmed 755632879489377 Problem Low back pain M54.5 Active confirmed 910742 007 Problem Total retinal detachment, left eye H33.052 Activ e confirmed 67859197 Problem Colon cancer screening Z12.11 Active confirmed 781541509 Problem Cervical cancer screening Z12.4 Active confirmed 449255639 Problem Encounter for screening for malignant neoplasm of breast, unspecified screening modality Z12.39 Active confirmed 684441083 ALLERGIES No Known Allergies ENCOUNTERS from 1960 to 2021-08-21 Encounter Location Date Provider Diagnosis [place] [id number] [facility] [phone] [place] [address] Aug, Jayne Randall Left breast mass N63.20 IMMUNIZATIONS Vaccine Route Administration Date Status TDAP [...] Education Language: Question Answer Notes Languages spoken: Argentine Protestant: Question Answer Notes Protestant [employer] Sexual Hx: Question Answer Notes Had sex [...] smoked? > 10 years REASON FOR REFERRAL No Information VITAL SIGNS No information MEDICATIONS Medication SIG (Take, Route, Frequency, Duration) Notes Start Da te End Date Status Metoprolol Tartrate 25 mg 1 tablet with food Orally Twice a day Active Potassium Chloride ER 10 MEQ 1 tablet with food Orally Twice a day for 30 day(s) Active Furosemide 20 MG 1 tablet Orally twice daily Active Aspirin 325 MG 1 tablet Orally Once a day for 30 day(s) Active Multivitamin Adults - 1 tab Orally Daily occ Active Atorvastatin Calcium 20 MG 1 tablet Orally Once a day for 30 day s Feb, Active Cartia XT 180 MG 1 capsule Orally Once a day for 30 day(s) Active PROCEDURES No Information RESULTS No Results REASON FOR VISIT mammo abnl MEDICAL (GENERAL) HISTORY Type Description Date Medical [...] 05/2019 Medical History SVT - Dr. Quinonez Surgical History tubal ligation 1984 Surgical History [...] Notes Treatment Notes Treatm ent Clinical Notes Aug, Left breast mass (ICD-10 - N63.20) PLAN OF TREATMENT Medication Medication Name Sig Start Date Stop Date Atorvastatin Calcium 20 MG 1 tablet Orally Once a day for 30 day s Feb, Treatment Notes Test Name Order Date [facility] DIAGNOSTIC UNILATERAL MAMMO (Ultrasound if indica karli) 2021-08-20 Next Appt Details Provider Name:Jayne Randall, 2020-11 07:30:00 AM, [address] [facility], , [place], [address], Insurance Providers Payer Name Payer Address Payer Phone Insured Name Patient Relati onship to Insured Coverage Start Date Coverage End Date [facility] [employer] [facility] [address] [facility] [phone] FERNANDA BROTHERS self
--- OUTSIDE RECORDS SUMMARY | 2021-10-20 19:37 | CCD | Continuity of Care Document ---
Author Author Yanira DE LEON-C Organization Unknown Address [address] [place] [address] Phone [phone] Care Team Providers Care Coiled Tubing Supervisor Name Role Phone AngusJayne donovan Yadira AUGIRRE AUTM Laron Jewell PA-C AUTM [phone] Problems Active Problems Provider Date Pure hypercholesterolemia [...] Available Procedures Date Code Description Status 08/25/2021 05109 X-Ray Foot Complete Completed 07/27/2021 14300 X-Ray Foot Complete Completed 07/27/2021 61661 Apply Cast Short Leg Completed 07/03/2021 06528 X-Ray Foot Complete Completed 06/25/2021 63362 Office/Outpatient Established Mo d MDM 30-39 Min Completed 06/25/2021 32185 X-Ray Foot Complete Completed 06/25/2021 10809 FX Metatarsal W/O Manipulation C ompleted Medical [...] fracture with routine healing Kristi L. Fish, [facility] 08/25/2021 S92.335D Nondisplaced fractur e of third metatarsal bone, left foot, subsequent encounter for fracture with routine healing Kristi L. Fish, [facility] 08/25/2021 S92.325D Nondisplaced fractur e of second metatarsal bone, left foot, subsequent encounter for fracture with routine healing Kristi L. Fish, [facility] 08/07/2021 S92.345D Nondisplaced fractur e of fourth metatarsal bone, left foot, subsequent encounter for fracture with routine healing Kristi L. Fish, [facility] 08/07/2021 S92.335D Nondisplaced fractur e of third metatarsal bone, left foot, subsequent encounter for fracture with routine healing Kristi L. Fish, [facility] 08/07/2021 S92.325D Nondisplaced fractur e of second metatarsal bone, left foot, subsequent encounter for fracture with routine healing Kristi L. Fish, [facility] 07/27/2021 S92.345D Nondisplaced fractur e of fourth metatarsal bone, left foot, subsequent encounter for fracture with routine healing Kristi L. Fish, [facility] 07/27/2021 S92.335D Nondisplaced fractur e of third metatarsal bone, left foot, subsequent encounter for fracture with routine healing Kristi L. Fish, [facility] 07/27/2021 S92.325D Nondisplaced fractur e of second metatarsal bone, left foot, subsequent encounter for fracture with routine healing Kristi L. Fish, [facility] 07/03/2021 S92.345D Nondisplaced fractur e of fourth metatarsal bone, left foot, subsequent encounter for fracture with routine healing Kristi L. Fish, [facility] 07/03/2021 S92.335D Nondisplaced fractur e of third metatarsal bone, left foot, subsequent encounter for fracture with routine healing Kristi L. Fish, [facility] 07/03/2021 S92.325D Nondisplaced fractur e of second metatarsal bone, left foot, subsequent encounter for fracture with routine healing Kristi Vini RACHAEL De Leon 06/25/2021 S92.325A Nondisplaced fractur [...] L. RACHAEL De Leon Plan of Treatment 08/25/2021 - Kristi De Leon PA-C* S92.345D Nondisplaced [...] Status Appt Date Milton De Leon MD S92.562 UNSPECIFIED FX OF LT FOOT INITAL ENCTR FOR OPEN FX Created [address] [facility], [address] [place] [address] [phone]
--- OUTSIDE RECORDS SUMMARY | 2021-10-20 19:37 | CCD | Continuity of Care Document ---
Author Author Yanira DE LEON-Audrey Organization Unknown Address [address] [place] [address] Phone [phone] Care Team Providers Care Hog Grader Name Role Phone AngusJayne donovan Yadira AGUIRRE AUTM Laron Jewell PA-C AUTM [phone] Problems Active Problems Provider Date Pure hypercholesterolemia [...] Available Procedures Date Code Description Status 07/27/2021 29474 X-Ray Foot Complete Completed 07/27/2021 96677 Apply Cast Short Leg Completed 07/03/2021 00397 X-Ray Foot Complete Completed 06/25/2021 48373 Office/Outpatient Established Mo d MDM 30-39 Min Completed 06/25/2021 85598 X-Ray Foot Complete Completed 06/25/2021 25641 FX Metatarsal W/O Manipulation C ompleted Medical Devices Description No Information Available Encounters Type Date Location Provider Dx Diagnosis Office Visit 07/27/2021 2:15p [place] PA-C S92.345 D Nondisp fx of 4th metatarsal bone, l ft, 7thD S92.335D Nondisp fx of 3rd metatarsal bone, l ft, 7thD S92.325D Nondisp fx of 2nd metatarsal bone, l ft, 7thD Office Visit 07/03/2021 2:15p [place] Kristi De Leon PA-C S92.345 D Nondisp fx of 4th metatarsal bone, l ft, 7thD S92.335D Nondisp fx of 3rd metatarsal bone, l ft, 7thD S92.325D Nondisp fx of 2nd metatarsal bone, l ft, 7thD Office Visit 06/25/2021 11:15a [place] PA-C S92.325 A Nondisp fx [...] subsequent encounter for fracture with routine healing Krsiti L. RACHAEL De Leon 06/25/2021 S92.325A Nondisplaced [...] am - Kristi De Leon PA-C at [place] 07/27/2021 - Kristi De Leon PA-C* S92.345D [...] Status Appt Date Milton De Leon MD S92.450 UNSPECIFIED FX OF LT FOOT INITAL ENCTR FOR OPEN FX Created [facility], [address] [place] [address] [phone]
[2021-10-20 20:07] LABS: INR 0.94; PROTHROMBIN TIME 12.9 SECONDS (12.7-14.5)
[2021-10-20 20:08] LABS: PARTIAL THROMBOPLASTIN TIME 33.7 SECONDS (25.9-37.0)
[2021-10-20 20:11] LABS: D-DIMER QUANT 1089.84 ng/ml (<500)
[2021-10-20] MEDS ORDERED: AUGMENTIN 875 MG TAB PO ONE (22:15)
[2021-10-20] MEDS ORDERED: AUGM875T28 PO (22:15)
[2021-10-20] MEDS ORDERED: AZITHROMYCIN 250MG TABLET PO ONE (22:15)
[2021-10-20] MEDS ORDERED: AZIT-12 PO (22:16)
[2021-10-20 23:09] VITALS: BP 110/72
--- NOTE | 2021-10-21 14:16 | ECGEPIP ---
[facility] - ED Test Date: 2021-10-20 Pat Name: FERNANDA BROTHERS Department: Room: - Gender: Female Strip Machine Operator: Trish ADLER : 1960 Requested By: RICH Jenkins Order Number: [id number] Reading MD: Juan Mendes Measurements Intervals [place] Rate: 68 P: 55 AR: 142 QRS: -27 QRSD: 86 T: 15 QT: 416 QTc: 442 Interpretive Statements Normal sinus rhythm Low voltage QRS Cannot rule out Anterior infarct , age undetermined Delayed anterior R wave progression Similar to tracing done 11-28-19 Electronically Signed on 10-21-2021 14:16:12 EST by Juan Mendes
== END 2021-10-20 23:13 | disposition home or self-care (01) ==
LOC: M ED 17:42 → EDBD 17:42 → M ED 23:13
DX: J12.82 Pneumonia due to coronavirus disease 2019 (principal); U07.1 COVID-19; I10 Essential (primary) hypertension; I48.91 Unspecified atrial fibrillation; E78.5 Hyperlipidemia, unspecified; Z79.899 Other long term (current) drug therapy; Z79.82 Long term (current) use of aspirin
CPT/HCPCS: 71045; 80053; 82550; 82553; 82728; 83605; 83615; 83735; 84145; 85025; 85379; 85384; 85610; 85730; 86140; 87040; 93005; 96361; 96374; 99284; J2405

== ENCOUNTER 2021-10-27 19:41 | Inpatient (IN) | payer OTHER ==
[~2021-10-27] VITALS: Ht 160 cm; Wt 82.0 kg
[~2021-10-27 19:41] MED LIST changes: +AUGM875T28 PO; +AZIT-12 PO
[2021-10-27] MEDS: NS 1,000 ML IV SCH (20:20)
[2021-10-27] MEDS ORDERED: ONDANSETRON 4MG/2ML VIAL IV ONE (20:20)
[2021-10-27 20:40] LABS: BASO % 0.3 % (0.0-1.0); EOS % 0.3 % (0.0-3.0); HEMATOCRIT 45.3 % (36.0-47.0); HEMOGLOBIN 14.9 g/dl (12.0-15.5); LYMPH # 1.1 10^3/uL (1.5-5.0); LYMPH % 7.4 % (24.0-44.0); MEAN CORPUSCULAR HGB CONC 32.9 g/dl (32.0-36.5); MEAN CORPUSCULAR VOLUME 94.4 fl (80.0-96.0); MONO # 1.4 10^3/uL (0.0-0.8); MONO % 9.3 % (2.0-8.0); NEUTROPHILS # 12.1 10^3/uL (1.5-8.5); NEUTROPHILS % 82.1 % (36.0-66.0); PLATELET COUNT, AUTOMATED 431 10^3/uL (150-450); WHITE BLOOD COUNT 14.8 10^3/uL (4.0-10.0)
[2021-10-27] MEDS: GASTROGRAFIN SOLUTION 30ML PO SCH (20:56)
[2021-10-27 21:06] LABS: ALBUMIN 3.5 GM/DL (3.2-5.2); ALT/SGPT 38 U/L (12-78); BILIRUBIN,DIRECT 0.3 MG/DL (0.0-0.2); BILIRUBIN,TOTAL 0.7 MG/DL (0.2-1.0); BLOOD UREA NITROGEN 29 MG/DL (7-18); CALCIUM LEVEL 9.8 MG/DL (8.8-10.2); CARBON DIOXIDE LEVEL 29 MEQ/L (21-32); CHLORIDE LEVEL 108 MEQ/L (98-107); CREATININE FOR GFR 0.87 MG/DL (0.55-1.30); GLOMERULAR FILTRATION RATE > 60.0 (>45); GLUCOSE, FASTING 114 MG/DL (70-100); LIPASE 351 U/L (73-393); SODIUM LEVEL 144 MEQ/L (136-145); TOTAL PROTEIN 7.8 GM/DL (6.4-8.2)
[2021-10-27] MEDS ORDERED: PROMETHAZINE INJ 25 MG/ML VIAL (J2550) IV ONE (21:10)
[2021-10-27] MEDS ORDERED: NS 1,000 ML IV ONE (21:45)
[2021-10-27] MEDS ORDERED: ISOVUE-370 76% 100ML VIAL As Ordered ONE (22:17)
[2021-10-28] MEDS ORDERED: NS 1,000 ML IV ONE (03:00)
[2021-10-28] MEDS: NS 1,000 ML IV SCH ×5 (03:00→21:45)
[2021-10-28] MEDS ORDERED: ACETAMINOPHEN TAB 650MG DOSE (2X325MG) PO PRN (03:35)
[2021-10-28] MEDS ORDERED: MOM 30ML SUSPENSION UDC PO PRN (03:35)
[2021-10-28] MEDS ORDERED: cefTRIAXone SOD 2 GM in D5W MINI-BAG PLUS 50 ML IV SCH (05:00)
[2021-10-28] MEDS ORDERED: AZITHROMYCIN INJ 500 MG, VIAL MATE ADAPTER 1 EACH in NS 250 ML IV SCH (06:00)
[2021-10-28] MEDS: GASTROGRAFIN SOLUTION 30ML PO SCH (08:04)
[2021-10-28] MEDS: dexameTHASONE 4 MG/ML 1ML VIAL (J1100 PER 1MG) IV SCH ×2 (09:00→20:25)
[2021-10-28 09:05] LABS: RSV AMPLIFICATION NEGATIVE (NEGATIVE)
[2021-10-28 09:56] LABS: BASO % 0.3 % (0.0-1.0); EOS # 0.1 10^3/uL (0.0-0.5); EOS % 0.5 % (0.0-3.0); HEMATOCRIT 39.2 % (36.0-47.0); LYMPH # 1.4 10^3/uL (1.5-5.0); LYMPH % 11.6 % (24.0-44.0); MEAN CORPUSCULAR HEMOGLOBIN 30.7 pg (27.0-33.0); MEAN CORPUSCULAR HGB CONC 31.9 g/dl (32.0-36.5); MEAN CORPUSCULAR VOLUME 96.3 fl (80.0-96.0); MONO # 1.1 10^3/uL (0.0-0.8); MONO % 9.5 % (2.0-8.0); NEUTROPHILS # 9.3 10^3/uL (1.5-8.5); NEUTROPHILS % 77.4 % (36.0-66.0); PLATELET COUNT, AUTOMATED 345 10^3/uL (150-450); RED BLOOD COUNT 4.07 10^6/uL (4.00-5.40)
[2021-10-28 10:02] LABS: HEMOGLOBIN 12.5 g/dl (12.0-15.5)
[2021-10-28 10:36] LABS: BLOOD UREA NITROGEN 21 MG/DL (7-18); CALCIUM LEVEL 8.6 MG/DL (8.8-10.2); CARBON DIOXIDE LEVEL 27 MEQ/L (21-32); CHLORIDE LEVEL 113 MEQ/L (98-107); CREATININE FOR GFR 0.82 MG/DL (0.55-1.30); GLOMERULAR FILTRATION RATE > 60.0 (>45); GLUCOSE, FASTING 88 MG/DL (70-100); POTASSIUM SERUM 4.4 MEQ/L (3.5-5.1); SODIUM LEVEL 146 MEQ/L (136-145)
[2021-10-28] MEDS ORDERED: DILT180C70 PO (13:12)
[2021-10-28] MEDS ORDERED: ACUL0.5S OD (13:12)
[2021-10-28] MEDS ORDERED: HOME MED LIST COMPLETE! XX SCH (13:15)
[2021-10-28 13:33] LABS: INR 1.13; PARTIAL THROMBOPLASTIN TIME 32.4 SECONDS (25.9-37.0); PROTHROMBIN TIME 14.9 SECONDS (12.7-14.5)
[2021-10-28 13:36] LABS: D-DIMER QUANT 3879.66 ng/ml (<500)
[2021-10-28 13:50] LABS: C REACTIVE PROTEIN QUANTITATIV 1.45 MG/DL (0.00-0.30)
[2021-10-28 14:00] VITALS: BP 99/64
[2021-10-28] MEDS ORDERED: REMDESIVIR 200 MG in NS 250 ML IV ONE (15:00)
[2021-10-28] MEDS ORDERED: SODIUM CHLORIDE 0.9% INJ 10 ML SYR IV ONE (15:00)
[2021-10-28 19:31] VITALS: BP 100/59
[2021-10-28 20:00] VITALS: O2SAT 93
[2021-10-29] VITALS (8 sets, daily range): BP systolic 96–102; BP diastolic 58–69; O2SAT 91–96
[2021-10-29 06:18] LABS: BASO % 0.1 % (0.0-1.0); EOS % 0.1 % (0.0-3.0); HEMATOCRIT 37.5 % (36.0-47.0); HEMOGLOBIN 12.1 g/dl (12.0-15.5); LYMPH # 0.6 10^3/uL (1.5-5.0); MEAN CORPUSCULAR HEMOGLOBIN 31.1 pg (27.0-33.0); MEAN CORPUSCULAR HGB CONC 32.3 g/dl (32.0-36.5); MEAN CORPUSCULAR VOLUME 96.4 fl (80.0-96.0); MONO # 0.1 10^3/uL (0.0-0.8); MONO % 1.4 % (2.0-8.0); NEUTROPHILS # 9.4 10^3/uL (1.5-8.5); NEUTROPHILS % 91.7 % (36.0-66.0); PLATELET COUNT, AUTOMATED 322 10^3/uL (150-450); RED BLOOD COUNT 3.89 10^6/uL (4.00-5.40); WHITE BLOOD COUNT 10.3 10^3/uL (4.0-10.0)
[2021-10-29 06:52] LABS: ALBUMIN 2.5 GM/DL (3.2-5.2); ALT/SGPT 26 U/L (12-78); BILIRUBIN,TOTAL 0.3 MG/DL (0.2-1.0); BLOOD UREA NITROGEN 16 MG/DL (7-18); CALCIUM LEVEL 8.9 MG/DL (8.8-10.2); CARBON DIOXIDE LEVEL 25 MEQ/L (21-32); CHLORIDE LEVEL 113 MEQ/L (98-107); CREATININE FOR GFR 0.61 MG/DL (0.55-1.30); GLOMERULAR FILTRATION RATE > 60.0 (>45); GLUCOSE, FASTING 137 MG/DL (70-100); POTASSIUM SERUM 4.1 MEQ/L (3.5-5.1); SODIUM LEVEL 144 MEQ/L (136-145); TOTAL PROTEIN 6.3 GM/DL (6.4-8.2)
[2021-10-29 06:53] LABS: ALBUMIN 2.6 GM/DL (3.2-5.2); BILIRUBIN,DIRECT 0.2 MG/DL (0.0-0.2); BILIRUBIN,TOTAL 0.8 MG/DL (0.2-1.0); MAGNESIUM LEVEL 2.1 MG/DL (1.8-2.4); TOTAL PROTEIN 5.8 GM/DL (6.4-8.2)
[2021-10-29] MEDS: ENOXAPARIN 40MG/0.4ML SYRINGE (J1650 PER 10MG) SC SCH (08:26)
[2021-10-29] MEDS: dexameTHASONE 4 MG/ML 1ML VIAL (J1100 PER 1MG) IV SCH ×2 (08:26→22:01)
[2021-10-29] MEDS: NS 1,000 ML IV SCH (09:30)
[2021-10-29] MEDS: ASPIRIN 81 MG CHEW TABLET PO SCH (11:39)
[2021-10-29] MEDS ORDERED: MONTELUKAST 10 MG TAB PO ONE (13:00)
[2021-10-29] MEDS ORDERED: CETIRIZINE (ZyrTEC) 10 MG TAB PO ONE (13:00)
[2021-10-29] MEDS ORDERED: OXYMETAZOLINE 0.05% NASAL SPRAY (AFRIN) ONE (13:00)
[2021-10-29] MEDS: guaiFENesin ER 600 MG TAB PO SCH ×2 (14:58→22:02)
[2021-10-29] MEDS: REMDESIVIR 100 MG in NS 250 ML IV SCH (14:59)
[2021-10-29] MEDS ORDERED: SODIUM CHLORIDE 0.9% INJ 10 ML SYR IV SCH (15:00)
[2021-10-29] MEDS: OXYMETAZOLINE 0.05% NASAL SPRAY (AFRIN) SCH (22:01)
[2021-10-30] VITALS: O2SAT 92
[2021-10-30 04:00] VITALS: BP 102/70; O2SAT 93
[2021-10-30 06:53] LABS: HEMATOCRIT 34.4 % (36.0-47.0); HEMOGLOBIN 11.4 g/dl (12.0-15.5); LYMPH # 0.8 10^3/uL (1.5-5.0); MEAN CORPUSCULAR HEMOGLOBIN 31.3 pg (27.0-33.0); MEAN CORPUSCULAR HGB CONC 33.1 g/dl (32.0-36.5); MEAN CORPUSCULAR VOLUME 94.5 fl (80.0-96.0); MONO # 0.4 10^3/uL (0.0-0.8); NEUTROPHILS # 8.9 10^3/uL (1.5-8.5); NEUTROPHILS % 87.4 % (36.0-66.0); PLATELET COUNT, AUTOMATED 290 10^3/uL (150-450); RED BLOOD COUNT 3.64 10^6/uL (4.00-5.40); WHITE BLOOD COUNT 10.2 10^3/uL (4.0-10.0)
[2021-10-30 07:01] LABS: INR 1.22; PROTHROMBIN TIME 15.8 SECONDS (12.7-14.5)
[2021-10-30 07:02] LABS: PARTIAL THROMBOPLASTIN TIME 33.7 SECONDS (25.9-37.0)
[2021-10-30 07:16] LABS: ALBUMIN 2.5 GM/DL (3.2-5.2); ALT/SGPT 35 U/L (12-78); BILIRUBIN,DIRECT 0.1 MG/DL (0.0-0.2); BILIRUBIN,TOTAL 0.3 MG/DL (0.2-1.0); BLOOD UREA NITROGEN 17 MG/DL (7-18); CALCIUM LEVEL 8.5 MG/DL (8.8-10.2); CARBON DIOXIDE LEVEL 23 MEQ/L (21-32); CHLORIDE LEVEL 112 MEQ/L (98-107); CREATININE FOR GFR 0.79 MG/DL (0.55-1.30); GLOMERULAR FILTRATION RATE > 60.0 (>45); GLUCOSE, FASTING 128 MG/DL (70-100); LDH LACTATE DEHYDROGENASE 202 U/L (84-246); SODIUM LEVEL 142 MEQ/L (136-145); TOTAL PROTEIN 5.9 GM/DL (6.4-8.2)
[2021-10-30 07:17] LABS: FERRITIN 360 NG/ML (8-252); MAGNESIUM LEVEL 2.1 MG/DL (1.8-2.4); NT-PRO BNP 1224 PG/ML (<125)
[2021-10-30 08:00] VITALS: O2SAT 94
[2021-10-30] MEDS: ENOXAPARIN 40MG/0.4ML SYRINGE (J1650 PER 10MG) SC SCH (08:06)
[2021-10-30] MEDS: dexameTHASONE 4 MG/ML 1ML VIAL (J1100 PER 1MG) IV SCH (08:06)
[2021-10-30] MEDS: ASPIRIN 81 MG CHEW TABLET PO SCH (08:06)
[2021-10-30] MEDS: OXYMETAZOLINE 0.05% NASAL SPRAY (AFRIN) SCH (08:07)
[2021-10-30] MEDS: guaiFENesin ER 600 MG TAB PO SCH (08:07)
[2021-10-30] MEDS ORDERED: MONTELUKAST 10 MG TAB PO SCH (09:00)
[2021-10-30] MEDS ORDERED: ASPIRIN 81 MG CHEW TABLET PEG SCH (09:00)
[2021-10-30] MEDS ORDERED: CETIRIZINE (ZyrTEC) 10 MG TAB PO SCH (09:00)
[2021-10-30] MEDS ORDERED: MUCI600T31 PO (11:35)
[2021-10-30] MEDS ORDERED: OXYM05SP (11:36)
[2021-10-30] MEDS: REMDESIVIR 100 MG in NS 250 ML IV SCH (12:26)
[2021-10-30 14:00] VITALS: BP 108/57
[2021-10-30 14:26] VITALS: O2SAT 95
== END 2021-10-30 14:50 | disposition home health service (06) | DRG 137 ==
LOC: M ED 19:41 → M ED INP 19:42 → ENRESERV 10-28 09:30 → M 4MAIN 10-28 10:05 → OBSVTOIN 10-29 10:25
PROVIDERS: ADMIT Family Medicine; ATTEND Family Medicine
PROC: 3E0333Z Introduction of Anti-inflammatory into Peripheral Vein, Percutaneous Approach (ICD-10-PCS; principal; 2021-10-29)
PROC: XW033E5 Introduction of Remdesivir Anti-infective into Peripheral Vein, Percutaneous Approach, New Technology Group 5 (ICD-10-PCS; 2021-10-29)
DX: U07.1 COVID-19 (principal); J12.82 Pneumonia due to coronavirus disease 2019; R11.2 Nausea with vomiting, unspecified; R53.1 Weakness; E86.0 Dehydration; I25.2 Old myocardial infarction; Z86.16 Personal history of COVID-19; Z98.41 Cataract extraction status, right eye; Z98.42 Cataract extraction status, left eye; Z79.82 Long term (current) use of aspirin; Z79.2 Long term (current) use of antibiotics; Z79.899 Other long term (current) drug therapy; Z20.822 Contact with and (suspected) exposure to COVID-19; I10 Essential (primary) hypertension; E78.00 Pure hypercholesterolemia, unspecified; E66.3 Overweight; Z68.29 Body mass index [BMI] 29.0-29.9, adult

== ENCOUNTER → 2021-11-24 | Outpatient (CLI) | payer OTHER ==
[~2021-11-24] MED LIST changes: +**SFHN** LIDOCAINE 1% MDV 20ML VIAL ONE; +**SFHN** SODIUM BICARBONATE 8.4% 10MEQ 10ML VIAL ONE; +ACUL0.5S OD; +DILT180C70 PO; +MUCI600T31 PO; +OXYM05SP
[2021-11-24 13:45] VITALS: BP 118/76
== END ==
LOC: M WHCPRO 12:35
PROVIDERS: ATTEND Physician Assistant Medical
DX: N60.12 Diffuse cystic mastopathy of left breast (principal); N64.1 Fat necrosis of breast
CPT/HCPCS: 19083; 77065; 88305; G0279

== ENCOUNTER → 2022-01-19 | Outpatient (CLI) | payer OTHER ==
[~2022-01-19] MED LIST changes: -**SFHN** LIDOCAINE 1% MDV 20ML VIAL ONE; -**SFHN** SODIUM BICARBONATE 8.4% 10MEQ 10ML VIAL ONE
== END ==
LOC: M RAD 15:40
PROVIDERS: ATTEND Physician Assistant Medical
DX: R91.8 Other nonspecific abnormal finding of lung field (principal)

== ENCOUNTER → 2022-01-21 | Outpatient (CLI) | payer OTHER ==
[2022-01-21 15:07] LABS: BASO # 0.1 10^3/uL (0.0-0.2); BASO % 0.8 % (0.0-1.0); EOS # 0.1 10^3/uL (0.0-0.5); EOS % 1.7 % (0.0-3.0); HEMATOCRIT 44.3 % (36.0-47.0); HEMOGLOBIN 14.8 g/dl (12.0-15.5); LYMPH % 31.7 % (24.0-44.0); MEAN CORPUSCULAR HEMOGLOBIN 31.6 pg (27.0-33.0); MEAN CORPUSCULAR HGB CONC 33.4 g/dl (32.0-36.5); MEAN CORPUSCULAR VOLUME 94.7 fl (80.0-96.0); MONO # 0.7 10^3/uL (0.0-0.8); MONO % 11.2 % (2.0-8.0); NEUTROPHILS # 3.5 10^3/uL (1.5-8.5); NEUTROPHILS % 54.4 % (36.0-66.0); PLATELET COUNT, AUTOMATED 277 10^3/uL (150-450); RED BLOOD COUNT 4.68 10^6/uL (4.00-5.40); WHITE BLOOD COUNT 6.4 10^3/uL (4.0-10.0)
[2022-01-21 15:22] LABS: INR 0.9; PROTHROMBIN TIME 12.6 SECONDS (12.7-14.5)
[2022-01-21 15:23] LABS: PARTIAL THROMBOPLASTIN TIME 32.1 SECONDS (25.9-37.0)
[2022-01-21 15:43] LABS: ALBUMIN 3.9 GM/DL (3.2-5.2); ALT/SGPT 41 U/L (12-78); BILIRUBIN,TOTAL 0.3 MG/DL (0.2-1.0); BLOOD UREA NITROGEN 12 MG/DL (7-18); CALCIUM LEVEL 9.5 MG/DL (8.8-10.2); CARBON DIOXIDE LEVEL 32 MEQ/L (21-32); CHLORIDE LEVEL 108 MEQ/L (98-107); GLOMERULAR FILTRATION RATE > 60.0 (>45); GLUCOSE, FASTING 79 MG/DL (70-100); MAGNESIUM LEVEL 2.4 MG/DL (1.8-2.4); NT-PRO BNP 118 PG/ML (<125); POTASSIUM SERUM 4.4 MEQ/L (3.5-5.1); SODIUM LEVEL 142 MEQ/L (136-145); TOTAL PROTEIN 7.2 GM/DL (6.4-8.2)
== END ==
LOC: M PLALAB 12:55
PROVIDERS: ATTEND Family Medicine
DX: I47.1 Supraventricular tachycardia (principal)

== ENCOUNTER → 2022-01-22 | Outpatient (CLI) | payer OTHER | LOC: M LABSMTC 09:43 | PROVIDERS: ATTEND Ophthalmology | DX: Z01.812 Encounter for preprocedural laboratory examination (principal); H33.8 Other retinal detachments ==

== ENCOUNTER → 2022-03-04 | Outpatient (CLI) | payer OTHER ==
[2022-03-04 14:00] LABS: FREE T4 0.8 NG/DL (0.76-1.46); THYROID STIMULATING HORMONE 2.06 uIU/ML (0.358-3.740)
== END ==
LOC: M PLALAB 10:34
PROVIDERS: ATTEND Physician Assistant Medical
DX: L65.9 Nonscarring hair loss, unspecified (principal)

== ENCOUNTER → 2022-06-11 | Outpatient (CLI) | payer OTHER | LOC: M WHC 08:51 | PROVIDERS: ATTEND Surgery | DX: R92.8 Other abnormal and inconclusive findings on diagnostic imaging of breast (principal); Z98.890 Other specified postprocedural states ==

== ENCOUNTER → 2022-06-17 | Outpatient (CLI) | payer OTHER ==
[2022-06-17 20:54] LABS: ALBUMIN 3.9 GM/DL (3.2-5.2); BILIRUBIN,TOTAL 0.3 MG/DL (0.2-1.0); CALCIUM LEVEL 9.6 MG/DL (8.8-10.2); CHOLESTEROL RISK RATIO 3.185 (<5); CREATININE FOR GFR 1.03 MG/DL (0.55-1.30); GLOMERULAR FILTRATION RATE 57.4 (>45); POTASSIUM SERUM 4.7 MEQ/L (3.5-5.1); TOTAL PROTEIN 7.7 GM/DL (6.4-8.2)
== END ==
LOC: M PLAIMG 12:44
PROVIDERS: ATTEND Physician Assistant Medical
DX: E78.2 Mixed hyperlipidemia (principal); M17.11 Unilateral primary osteoarthritis, right knee

== ENCOUNTER → 2022-10-18 | Outpatient (REF) | payer OTHER ==
[2022-10-18 14:57] LABS: APPEARANCE, URINE MANUAL CLEAR (CLEAR); COLOR, URINE MANUAL YELLOW (YELLOW)
[2022-10-18 14:59] LABS: SPECIFIC GRAVITY,URINE MANUAL 1.015 (1.002-1.035)
[2022-10-18 15:00] LABS: BILIRUBIN, URINE MANUAL NEGATIVE (NEGATIVE); BLOOD URINE MANUAL NEGATIVE (NEGATIVE); GLUCOSE, URINE (UA) MANUAL NEGATIVE (NEGATIVE); KETONE, URINE MANUAL 1+ mg/dL (NEGATIVE); LEUKOCYTE ESTERASE, URINE MAN POSITIVE (NEGATIVE); NITRITE, URINE MANUAL NEGATIVE (NEGATIVE); PROTEIN, URINE MANUAL TRACE mg/dL (NEGATIVE); UROBILINOGEN, URINE MANUAL NORMAL (NORMAL)
[2022-10-18 15:17] LABS: RBC, URINE 0-1 /hpf (0-3); SQUAMOUS EPITHELIAL CELL URINE SMALL AMOUNT /hpf (SMALL AMT)
[2022-10-18 15:18] LABS: BACTERIA, URINE SMALL AMOUNT; CALCIUM OXALATE CRYSTALS,URINE MOD AMOUNT /hpf; HYALINE CAST, URINE NONE SEEN /lpf (0-1)
== END ==
LOC: M SFHCPLAZ 13:10
PROVIDERS: ATTEND Physician Assistant Medical
DX: R35.0 Frequency of micturition (principal)

== ENCOUNTER → 2023-01-10 | Outpatient (CLI) | payer OTHER | LOC: M WHC 09:53 | PROVIDERS: ATTEND Physician Assistant Medical | DX: Z12.31 Encounter for screening mammogram for malignant neoplasm of breast (principal) ==

== ENCOUNTER → 2023-02-28 | Outpatient (CLI) | payer OTHER ==
[2023-02-28 17:04] LABS: BASO # 0.1 10^3/uL (0.0-0.2); BASO % 0.7 % (0.0-1.0); EOS # 0.1 10^3/uL (0.0-0.5); EOS % 1.6 % (0.0-3.0); HEMATOCRIT 44.2 % (36.0-47.0); HEMOGLOBIN 14.1 g/dl (12.0-15.5); LYMPH # 1.7 10^3/uL (1.5-5.0); LYMPH % 23.2 % (24.0-44.0); MEAN CORPUSCULAR HEMOGLOBIN 31.3 pg (27.0-33.0); MEAN CORPUSCULAR HGB CONC 31.9 g/dl (32.0-36.5); MEAN CORPUSCULAR VOLUME 98.2 fl (80.0-96.0); MONO # 0.7 10^3/uL (0.0-0.8); MONO % 9.6 % (2.0-8.0); NEUTROPHILS # 4.8 10^3/uL (1.5-8.5); NEUTROPHILS % 64.6 % (36.0-66.0); PLATELET COUNT, AUTOMATED 251 10^3/uL (150-450); WHITE BLOOD COUNT 7.4 10^3/uL (4.0-10.0)
[2023-02-28 17:27] LABS: ALBUMIN 3.9 G/DL (3.2-5.2); BILIRUBIN,TOTAL 0.5 MG/DL (0.3-1.2); CALCIUM LEVEL 8.9 MG/DL (8.3-10.6); CHOLESTEROL RISK RATIO 2.73 (<5); CREATININE FOR GFR 1.04 MG/DL (0.55-1.30); GLOMERULAR FILTRATION RATE 56.8 (>45); HDL CHOLESTEROL 54.1 MG/DL (>40); LDL CHOLESTEROL 61.9 MG/DL (<100); NON-HDL-C 93.9 MG/DL; POTASSIUM SERUM 4.2 MMOL/L (3.5-5.1); TOTAL PROTEIN 6.9 G/DL (5.7-8.2)
[2023-02-28 18:03] LABS: HEMOGLOBIN A1c 5.6 % (4.0-6.0)
== END ==
LOC: M PLALAB 10:10
PROVIDERS: ATTEND Physician Assistant Medical
DX: J30.2 Other seasonal allergic rhinitis (principal); E66.01 Morbid (severe) obesity due to excess calories

== ENCOUNTER → 2023-03-03 | Outpatient (REF) | payer OTHER | LOC: M SFHCPLAZ 14:14 | PROVIDERS: ATTEND Physician Assistant Medical | DX: J30.2 Other seasonal allergic rhinitis (principal); E66.01 Morbid (severe) obesity due to excess calories; Z53.8 Procedure and treatment not carried out for other reasons ==

== ENCOUNTER → 2023-06-29 | Outpatient (REF) | payer MEDICARE, OTHER ==
[~2023-06-29] MED LIST changes: -K-TA10TA2 PO; +POTA-165 PO
[2023-06-29 14:06] LABS: APPEARANCE, URINE HAZY (CLEAR); BACTERIA, URINE AUTO NEGATIVE (NEGATIVE); BILIRUBIN, URINE AUTO NEGATIVE (NEGATIVE); BLOOD, URINE BLOOD NEGATIVE (NEGATIVE); CALCIUM OXALATE CRYSTALS MODERATE; COLOR, URINE YELLOW (YELLOW); GLUCOSE, URINE (UA) AUTO NEGATIVE (NEGATIVE); KETONE, URINE AUTO TRACE mg/dL (NEGATIVE); LEUKOCYTE ESTERASE, URINE AUTO 2+ (NEGATIVE); MUCUS, URINE SMALL (NEGATIVE); NITRITE, URINE AUTO NEGATIVE (NEGATIVE); PROTEIN, URINE AUTO NEGATIVE (NEGATIVE); RBC, URINE AUTO 0 /HPF (0-3); SQUAMOUS EPITHELIAL CELL UR AU 3 /HPF (0-6); UROBILINOGEN, URINE AUTO 0.2 mg/dL (0.0-2.0); WBC, URINE AUTO 6 /HPF (0-3)
== END ==
LOC: M SFHCPLAZ 12:45
PROVIDERS: ATTEND Physician Assistant Medical
DX: R10.9 Unspecified abdominal pain (principal)

== ENCOUNTER → 2023-07-11 | Outpatient (CLI) | payer MEDICARE, MEDICAID | LOC: M PLAIMG 12:12 | PROVIDERS: ATTEND Physician Assistant Medical | DX: R10.9 Unspecified abdominal pain (principal) ==

== ENCOUNTER → 2023-07-14 | Outpatient (REF) | payer MEDICARE, MEDICAID | LOC: M SFHCPLAZ 13:21 | PROVIDERS: ATTEND Physician Assistant Medical | DX: R10.9 Unspecified abdominal pain (principal); Z53.9 Procedure and treatment not carried out, unspecified reason ==

== ENCOUNTER → 2023-10-26 | Outpatient (REF) | payer MEDICARE ==
[2023-10-26 15:26] LABS: BASO # 0.1 10^3/uL (0.0-0.2); BASO % 0.9 % (0.0-1.0); EOS # 0.1 10^3/uL (0.0-0.5); EOS % 1.9 % (0.0-3.0); HEMATOCRIT 45.1 % (36.0-47.0); HEMOGLOBIN 14.6 g/dl (12.0-15.5); LYMPH # 1.6 10^3/uL (1.5-5.0); LYMPH % 24.5 % (24.0-44.0); MEAN CORPUSCULAR HEMOGLOBIN 31.7 pg (27.0-33.0); MEAN CORPUSCULAR HGB CONC 32.4 g/dl (32.0-36.5); MEAN CORPUSCULAR VOLUME 97.8 fl (80.0-96.0); MONO # 0.7 10^3/uL (0.0-0.8); MONO % 11.3 % (2.0-8.0); NEUTROPHILS # 3.9 10^3/uL (1.5-8.5); NEUTROPHILS % 61.2 % (36.0-66.0); PLATELET COUNT, AUTOMATED 265 10^3/uL (150-450); RED BLOOD COUNT 4.61 10^6/uL (4.00-5.40); WHITE BLOOD COUNT 6.4 10^3/uL (4.0-10.0)
[2023-10-26 16:02] LABS: FREE T4 0.94 NG/DL (0.89-1.76); THYROID STIMULATING HORMONE 2.205 uIU/ML (0.55-4.78)
[2023-10-26 16:03] LABS: BILIRUBIN,TOTAL 0.5 MG/DL (0.3-1.2); CALCIUM LEVEL 9.2 MG/DL (8.3-10.6); CREATININE FOR GFR 1.03 MG/DL (0.55-1.30); GLOMERULAR FILTRATION RATE 57.3 (>45); POTASSIUM SERUM 4.4 MMOL/L (3.5-5.1); TOTAL PROTEIN 7.2 G/DL (5.7-8.2)
== END ==
LOC: M PLALAB 13:36
PROVIDERS: ATTEND Physician Assistant Medical
DX: E78.2 Mixed hyperlipidemia (principal); F32.0 Major depressive disorder, single episode, mild; J30.2 Other seasonal allergic rhinitis

== ENCOUNTER 2024-01-02 17:51 | Emergency (ER) | payer MEDICARE ==
[~2024-01-02] VITALS: Ht 160 cm; Wt 101.3 kg
[2024-01-02] MEDS ORDERED: ALEN70TA82 (18:03)
[2024-01-02 20:27] VITALS: BP 153/91; TEMP 97.1; O2SAT 99
== END 2024-01-02 20:32 | disposition home or self-care (01) ==
LOC: M ED 17:51
DX: S43.401A Unspecified sprain of right shoulder joint, initial encounter (principal); S66.911A Strain of unspecified muscle, fascia and tendon at wrist and hand level, right hand, initial encounter; S66.912A Strain of unspecified muscle, fascia and tendon at wrist and hand level, left hand, initial encounter; W10.1XXA Fall (on)(from) sidewalk curb, initial encounter; Y92.9 Unspecified place or not applicable; Y93.89 Activity, other specified; Y99.9 Unspecified external cause status; Z79.02 Long term (current) use of antithrombotics/antiplatelets; Z79.899 Other long term (current) drug therapy

== ENCOUNTER → 2024-01-17 | Outpatient (REF) | payer MEDICARE ==
[~2024-01-17] MED LIST changes: +ALEN70TA82
[2024-01-17 17:59] LABS: APPEARANCE, URINE TURBID (CLEAR); BACTERIA, URINE AUTO NEGATIVE (NEGATIVE); BILIRUBIN, URINE AUTO NEGATIVE (NEGATIVE); BLOOD, URINE BLOOD NEGATIVE (NEGATIVE); CALCIUM OXALATE CRYSTALS MODERATE; COLOR, URINE AMBER (YELLOW); GLUCOSE, URINE (UA) AUTO NEGATIVE (NEGATIVE); KETONE, URINE AUTO TRACE mg/dL (NEGATIVE); LEUKOCYTE ESTERASE, URINE AUTO 2+ (NEGATIVE); NITRITE, URINE AUTO NEGATIVE (NEGATIVE); PROTEIN, URINE AUTO NEGATIVE (NEGATIVE); RBC, URINE AUTO 0 /HPF (0-3); SPECIFIC GRAVITY URINE AUTO 1.023 (1.002-1.035); SQUAMOUS EPITHELIAL CELL UR AU 2 /HPF (0-6); UROBILINOGEN, URINE AUTO 0.2 mg/dL (0.0-2.0); WBC, URINE AUTO 10 /HPF (0-3)
== END ==
LOC: M SFHCPLAZ 16:57
PROVIDERS: ATTEND Physician Assistant Medical
DX: Z79.899 Other long term (current) drug therapy (principal); W19.XXXD Unspecified fall, subsequent encounter

== ENCOUNTER → 2024-02-02 | Outpatient (CLI) | payer MEDICARE | LOC: M WHC 09:29 | PROVIDERS: ATTEND Physician Assistant Medical | DX: Z12.31 Encounter for screening mammogram for malignant neoplasm of breast (principal); M81.0 Age-related osteoporosis without current pathological fracture; M85.88 Other specified disorders of bone density and structure, other site; R92.8 Other abnormal and inconclusive findings on diagnostic imaging of breast ==

== ENCOUNTER → 2024-02-15 | Outpatient (CLI) | payer MEDICARE | LOC: M WHC 12:49 | PROVIDERS: ATTEND Physician Assistant Medical | DX: N63.20 Unspecified lump in the left breast, unspecified quadrant (principal); N63.21 Unspecified lump in the left breast, upper outer quadrant ==

== ENCOUNTER → 2024-03-15 | Outpatient (CLI) | payer MEDICARE ==
[2024-03-15 09:21] VITALS: TEMP 98.3
[2024-03-15 10:26] VITALS: BP 122/74; O2SAT 98
== END ==
LOC: M WHCPRO 08:49
PROVIDERS: ATTEND Physician Assistant Medical
DX: R92.8 Other abnormal and inconclusive findings on diagnostic imaging of breast (principal); D05.12 Intraductal carcinoma in situ of left breast

== ENCOUNTER → 2024-04-06 | Outpatient (CLI) | payer MEDICARE ==
[~2024-04-06] MED LIST changes: +PROHANCE 279.3MG/ML 15ML VIAL ONE; +PROHANCE 279.3MG/ML 5ML VIAL ONE
== END ==
LOC: M PLAIMG 14:10
PROVIDERS: ATTEND Physician Assistant Medical
DX: D05.12 Intraductal carcinoma in situ of left breast (principal)

== ENCOUNTER → 2024-04-25 | Outpatient (CLI) | payer MEDICARE ==
[~2024-04-25] MED LIST changes: -PROHANCE 279.3MG/ML 15ML VIAL ONE; -PROHANCE 279.3MG/ML 5ML VIAL ONE
[2024-04-25 13:41] LABS: BASO % 0.7 % (0.0-1.0); EOS # 0.1 10^3/uL (0.0-0.5); HEMATOCRIT 43.9 % (36.0-47.0); HEMOGLOBIN 14.5 g/dl (12.0-15.5); LYMPH # 1.5 10^3/uL (1.5-5.0); LYMPH % 25.6 % (24.0-44.0); MEAN CORPUSCULAR HEMOGLOBIN 31.9 pg (27.0-33.0); MEAN CORPUSCULAR VOLUME 96.7 fl (80.0-96.0); MONO # 0.8 10^3/uL (0.0-0.8); MONO % 13.2 % (2.0-8.0); NEUTROPHILS # 3.4 10^3/uL (1.5-8.5); NEUTROPHILS % 58.3 % (36.0-66.0); PLATELET COUNT, AUTOMATED 248 10^3/uL (150-450); RED BLOOD COUNT 4.54 10^6/uL (4.00-5.40); WHITE BLOOD COUNT 5.9 10^3/uL (4.0-10.0)
[2024-04-25 14:10] LABS: THYROID STIMULATING HORMONE 2.209 uIU/ML (0.55-4.78)
[2024-04-25 14:11] LABS: FREE T4 0.97 NG/DL (0.89-1.76)
[2024-04-25 14:12] LABS: CPK CREATINE PHOSPHOKINASE 248 U/L (34-145)
[2024-04-25 14:13] LABS: ALBUMIN 3.6 G/DL (3.2-5.2); ALKALINE PHOSPHATASE 175 U/L (46-116); ALT/SGPT 44 U/L (7.0-40); AST/SGOT 24 U/L (<34); BILIRUBIN,TOTAL 0.3 MG/DL (0.3-1.2); BLOOD UREA NITROGEN 15 MG/DL (9-23); CARBON DIOXIDE LEVEL 26 MMOL/L (20-31); CHLORIDE LEVEL 110 MMOL/L (98-107); CHOLESTEROL LEVEL 162 MG/DL (<200); CHOLESTEROL RISK RATIO 3.17 (<5); CREATININE FOR GFR 0.97 MG/DL (0.55-1.30); GLOMERULAR FILTRATION RATE > 60.0 (>45); GLUCOSE, FASTING 91 MG/DL (74-106); LDL CHOLESTEROL 77.6 MG/DL (<100); POTASSIUM SERUM 4.4 MMOL/L (3.5-5.1); SODIUM LEVEL 143 MMOL/L (136-145); TOTAL PROTEIN 6.9 G/DL (5.7-8.2); TRIGLYCERIDES LEVEL 167 MG/DL (<150)
== END ==
LOC: M PLALAB 09:22
PROVIDERS: ATTEND Physician Assistant Medical
DX: E78.2 Mixed hyperlipidemia (principal); F32.0 Major depressive disorder, single episode, mild; J30.2 Other seasonal allergic rhinitis

== ENCOUNTER → 2024-05-01 | Outpatient (CLI) | payer MEDICARE | LOC: M CARPUL 11:37 | PROVIDERS: ATTEND Physician Assistant Medical | DX: R06.02 Shortness of breath (principal) ==

== ENCOUNTER → 2024-07-13 | Outpatient (CLI) | payer MEDICAID, MEDICARE ==
[~2024-07-13] MED LIST changes: +ANAS1TAB2 PO; +CLAR10CA3 PO
== END ==
LOC: M ONCR 09:53
PROVIDERS: ATTEND General Practice
DX: C50.412 Malignant neoplasm of upper-outer quadrant of left female breast (principal); Z87.891 Personal history of nicotine dependence; Z98.890 Other specified postprocedural states; Z79.811 Long term (current) use of aromatase inhibitors; Z79.899 Other long term (current) drug therapy; Z80.1 Family history of malignant neoplasm of trachea, bronchus and lung; Z80.3 Family history of malignant neoplasm of breast; Z98.51 Tubal ligation status

== ENCOUNTER 2024-08-31 10:34 | Outpatient (RCR) | payer MEDICARE | END 2024-09-13 | LOC: M ONCR 10:34 | PROVIDERS: ATTEND General Practice | DX: Z51.0 Encounter for antineoplastic radiation therapy (principal); C50.412 Malignant neoplasm of upper-outer quadrant of left female breast ==

== ENCOUNTER 2024-09-24 11:48 | Emergency (ER) | payer MEDICARE ==
[~2024-09-24] VITALS: Ht 157.5 cm; Wt 103.2 kg
[~2024-09-24 11:48] MED LIST changes: -ALEN70TA82; +ALEN70TA82 PO
[2024-09-24] MEDS ORDERED: ADENOSINE 6MG 2ML INJECTION As Ordered ONE (12:18)
[2024-09-24 12:24] LABS: BASO # 0.1 10^3/uL (0.0-0.2); BASO % 0.7 % (0.0-1.0); EOS # 0.1 10^3/uL (0.0-0.5); EOS % 1.5 % (0.0-3.0); HEMATOCRIT 45.3 % (36.0-47.0); HEMOGLOBIN 15.1 g/dl (12.0-15.5); LYMPH # 1.9 10^3/uL (1.5-5.0); LYMPH % 25.8 % (24.0-44.0); MEAN CORPUSCULAR HEMOGLOBIN 31.9 pg (27.0-33.0); MEAN CORPUSCULAR HGB CONC 33.3 g/dl (32.0-36.5); MEAN CORPUSCULAR VOLUME 95.8 fl (80.0-96.0); NEUTROPHILS # 4.4 10^3/uL (1.5-8.5); NEUTROPHILS % 58.7 % (36.0-66.0); PLATELET COUNT, AUTOMATED 252 10^3/uL (150-450); RED BLOOD COUNT 4.73 10^6/uL (4.00-5.40); WHITE BLOOD COUNT 7.5 10^3/uL (4.0-10.0)
[2024-09-24] MEDS: ADENOSINE 6MG 2ML INJECTION IV STA (12:28)
[2024-09-24 12:57] LABS: ALBUMIN 3.7 G/DL (3.2-5.2); BILIRUBIN,DIRECT 0.1 MG/DL (<0.4); BILIRUBIN,TOTAL 0.4 MG/DL (0.3-1.2); CALCIUM LEVEL 9.9 MG/DL (8.3-10.6); CREATININE FOR GFR 1.15 MG/DL (0.55-1.30); GLOMERULAR FILTRATION RATE 50.3 (>45); POTASSIUM SERUM 4.6 MMOL/L (3.5-5.1); TOTAL PROTEIN 7.4 G/DL (5.7-8.2)
[2024-09-24 13:31] LABS: MAGNESIUM LEVEL 2.1 MG/DL (1.8-2.4)
[2024-09-24 13:35] LABS: FREE T4 1.04 NG/DL (0.89-1.76); THYROID STIMULATING HORMONE 4.479 uIU/ML (0.55-4.78)
[2024-09-24] MEDS ORDERED: ANAS1TAB2 PO (13:39)
[2024-09-24] MEDS ORDERED: ATOR40TA75 PO (13:39)
[2024-09-24] MEDS ORDERED: ACET-897 PO (13:41)
[2024-09-24] MEDS ORDERED: HOME MED LIST COMPLETE! XX SCH (13:45)
[2024-09-24 14:08] LABS: CK-MB VALUE MASS 1.5 NG/ML (<3.6)
[2024-09-24 14:09] LABS: MB/CK RELATIVE INDEX 0.92 (< OR =4)
[2024-09-24 14:39] LABS: CK-MB VALUE MASS 1.2 NG/ML (<3.6)
[2024-09-24 14:41] LABS: MB/CK RELATIVE INDEX 0.86 (< OR =4)
[2024-09-24 15:25] VITALS: BP 123/56; TEMP 97.3; O2SAT 97
== END 2024-09-24 15:41 | disposition home or self-care (01) ==
LOC: M ED 11:48 → EDBD 11:48 → M ED 15:41
DX: I47.10 Supraventricular tachycardia, unspecified (principal); I48.91 Unspecified atrial fibrillation; E78.5 Hyperlipidemia, unspecified; Z79.1 Long term (current) use of non-steroidal anti-inflammatories (NSAID); Z79.899 Other long term (current) drug therapy
CPT/HCPCS: 71045; 80048; 80076; 82550; 82553; 83690; 83735; 84439; 84443; 84484; 85025; 93005; 93041; 94760; 96374; 99285; J0153

== ENCOUNTER → 2024-09-26 | Outpatient (CLI) | payer MEDICARE ==
[~2024-09-26] MED LIST changes: +ACET-897 PO; +ATOR40TA75 PO
== END ==
LOC: M PLAIMG 10:18
PROVIDERS: ATTEND Physician Assistant Medical
DX: M51.362 Other intervertebral disc degeneration, lumbar region with discogenic back pain and lower extremity pain (principal)

== ENCOUNTER 2024-10-22 11:42 | Emergency (ER) | payer OTHER, MEDICARE ==
[~2024-10-22] VITALS: Ht 157.5 cm; Wt 100.9 kg
[~2024-10-22 11:42] MED LIST changes: +BACL5TAB2; +ELIQ5TAB; +METO1TAB32 PO; +PANT40TA29
[2024-10-22 11:49] VITALS: TEMP 97.5
[2024-10-22 15:11] VITALS: BP 134/65; O2SAT 98
== END 2024-10-22 16:55 | disposition home or self-care (01) ==
LOC: M ED 11:42 → EDBD 11:42 → M ED 16:55
DX: S82.61XA Displaced fracture of lateral malleolus of right fibula, initial encounter for closed fracture (principal); Y92.9 Unspecified place or not applicable; Y93.9 Activity, unspecified; Y99.0 Civilian activity done for income or pay; Z79.1 Long term (current) use of non-steroidal anti-inflammatories (NSAID); Z79.01 Long term (current) use of anticoagulants; Z79.899 Other long term (current) drug therapy

== ENCOUNTER → 2024-11-22 | Outpatient (CLI) | payer MEDICARE ==
[2024-11-22 13:34] LABS: BASO % 0.5 % (0.0-1.0); EOS # 0.1 10^3/uL (0.0-0.5); EOS % 1.7 % (0.0-3.0); HEMATOCRIT 43.8 % (36.0-47.0); HEMOGLOBIN 14.7 g/dl (12.0-15.5); LYMPH # 1.5 10^3/uL (1.5-5.0); LYMPH % 23.3 % (24.0-44.0); MEAN CORPUSCULAR HEMOGLOBIN 32.1 pg (27.0-33.0); MEAN CORPUSCULAR HGB CONC 33.6 g/dl (32.0-36.5); MEAN CORPUSCULAR VOLUME 95.6 fl (80.0-96.0); MONO # 0.7 10^3/uL (0.0-0.8); MONO % 10.9 % (2.0-8.0); NEUTROPHILS # 4.1 10^3/uL (1.5-8.5); NEUTROPHILS % 63.4 % (36.0-66.0); PLATELET COUNT, AUTOMATED 262 10^3/uL (150-450); RED BLOOD COUNT 4.58 10^6/uL (4.00-5.40); WHITE BLOOD COUNT 6.5 10^3/uL (4.0-10.0)
[2024-11-22 13:40] LABS: ALBUMIN 3.9 G/DL (3.2-5.2); BILIRUBIN,TOTAL 0.4 MG/DL (0.3-1.2); CALCIUM LEVEL 10.3 MG/DL (8.3-10.6); CREATININE FOR GFR 1.06 MG/DL (0.55-1.30); GLOMERULAR FILTRATION RATE 55.2 (>45); POTASSIUM SERUM 4.5 MMOL/L (3.5-5.1); TOTAL PROTEIN 7.7 G/DL (5.7-8.2)
[2024-11-22 13:43] LABS: FREE T4 0.99 NG/DL (0.89-1.76); THYROID STIMULATING HORMONE 3.29 uIU/ML (0.55-4.78)
[2024-11-22 13:52] LABS: HEMOGLOBIN A1c 5.7 % (4.0-6.0)
== END ==
LOC: M PLALAB 10:04
PROVIDERS: ATTEND Physician Assistant Medical
DX: J30.2 Other seasonal allergic rhinitis (principal); E78.2 Mixed hyperlipidemia; E66.01 Morbid (severe) obesity due to excess calories; Z79.899 Other long term (current) drug therapy

== ENCOUNTER → 2025-03-01 | Outpatient (CLI) | payer MEDICARE | LOC: M WHC 07:27 | PROVIDERS: ATTEND Nurse Practitioner Women's Health | DX: D05.12 Intraductal carcinoma in situ of left breast (principal); M85.851 Other specified disorders of bone density and structure, right thigh; M85.852 Other specified disorders of bone density and structure, left thigh | CPT/HCPCS: 77080; G0463 ==

== ENCOUNTER → 2025-03-01 | Outpatient (CLI) | payer MEDICARE | LOC: M ONCR 10:41 | PROVIDERS: ATTEND General Practice | DX: C50.412 Malignant neoplasm of upper-outer quadrant of left female breast (principal); Z98.890 Other specified postprocedural states; Z92.3 Personal history of irradiation; Z79.811 Long term (current) use of aromatase inhibitors; Z87.891 Personal history of nicotine dependence; Z79.01 Long term (current) use of anticoagulants; Z79.899 Other long term (current) drug therapy; Z17.0 Estrogen receptor positive status [ER+]; Z17.21 Progesterone receptor positive status; Z17.32 Human epidermal growth factor receptor 2 negative status ==

== ENCOUNTER 2025-05-31 16:47 | Emergency (ER) | payer MEDICARE ==
[~2025-05-31] VITALS: Ht 157.5 cm; Wt 98.0 kg
[2025-05-31] MEDS: ACETAMINOPHEN 500 MG TAB PO ONE (20:53)
[2025-05-31 22:04] VITALS: BP 105/54; TEMP 95.9; O2SAT 95
== END 2025-05-31 22:07 | disposition home or self-care (01) ==
LOC: M ED 16:47
DX: M71.22 Synovial cyst of popliteal space [Baker], left knee (principal); I48.91 Unspecified atrial fibrillation; Z79.1 Long term (current) use of non-steroidal anti-inflammatories (NSAID); Z79.01 Long term (current) use of anticoagulants; Z79.899 Other long term (current) drug therapy

== ENCOUNTER → 2025-05-31 | Outpatient (CLI) | payer MEDICARE ==
[~2025-05-31] MED LIST changes: -FLOM0.4C39 PO; +LIDO1ADH93 TOP; -LIDO5DIS41 TOP; +TAMS-18 PO
[2025-05-31 17:29] LABS: CHOLESTEROL LEVEL 160.0 MG/DL (<200); CHOLESTEROL RISK RATIO 3.12 (<5); LDL CHOLESTEROL 80.2 MG/DL (<100); NON-HDL-C 108.8 MG/DL; TRIGLYCERIDES LEVEL 143.0 MG/DL (<150)
== END ==
LOC: M LAB 16:30
PROVIDERS: ATTEND Physician Assistant Medical
DX: E78.2 Mixed hyperlipidemia (principal)

== ENCOUNTER → 2025-05-31 | Outpatient (CLI) | payer MEDICARE ==
[2025-05-31 17:10] LABS: BASO # 0.1 10^3/uL (0.0-0.2); BASO % 0.7 % (0.0-1.0); EOS # 0.1 10^3/uL (0.0-0.5); EOS % 1.4 % (0.0-3.0); LYMPH # 2.1 10^3/uL (1.5-5.0); LYMPH % 28.6 % (24.0-44.0); MONO # 0.8 10^3/uL (0.0-0.8); MONO % 11.6 % (2.0-8.0); NEUTROPHILS # 4.1 10^3/uL (1.5-8.5); NEUTROPHILS % 56.6 % (36.0-66.0); PLATELET COUNT, AUTOMATED 247 10^3/uL (150-450)
[2025-05-31 17:30] LABS: CALCIUM LEVEL 9.6 MG/DL (8.3-10.6); CARBON DIOXIDE LEVEL 24.0 MMOL/L (20-31); CHLORIDE LEVEL 110.0 MMOL/L (98-107); CREATININE FOR GFR 1.13 MG/DL (0.55-1.30); GLOMERULAR FILTRATION RATE 53.7 (>45); POTASSIUM SERUM 3.9 MMOL/L (3.5-5.1); SODIUM LEVEL 145.0 MMOL/L (136-145)
== END ==
LOC: M LAB 16:27
PROVIDERS: ATTEND Internal Medicine Cardiovascular Disease
DX: I48.19 Other persistent atrial fibrillation (principal); Z79.01 Long term (current) use of anticoagulants

== ENCOUNTER → 2025-09-03 | Outpatient (CLI) | payer MEDICARE ==
[~2025-09-03] MED LIST changes: +METO1TAB87
== END ==
LOC: M ONCR 10:31
PROVIDERS: ATTEND General Practice
DX: Z08 Encounter for follow-up examination after completed treatment for malignant neoplasm (principal); Z85.3 Personal history of malignant neoplasm of breast; Z98.890 Other specified postprocedural states; Z92.3 Personal history of irradiation; Z79.01 Long term (current) use of anticoagulants; Z79.811 Long term (current) use of aromatase inhibitors; Z79.899 Other long term (current) drug therapy; Z87.891 Personal history of nicotine dependence

== ENCOUNTER → 2025-09-25 | Outpatient (CLI) | payer MEDICARE ==
[2025-09-25 10:58] LABS: ALT/SGPT 36.0 U/L (7.0-40); AST/SGOT 28.0 U/L (<34); CALCIUM LEVEL 9.7 MG/DL (8.3-10.6); CARBON DIOXIDE LEVEL 30.0 MMOL/L (20-31); CHLORIDE LEVEL 102.0 MMOL/L (98-107); CREATININE FOR GFR 1.08 MG/DL (0.55-1.30); GLOMERULAR FILTRATION RATE 56.3 (>45); POTASSIUM SERUM 4.4 MMOL/L (3.5-5.1); SODIUM LEVEL 143.0 MMOL/L (136-145)
[2025-09-25 11:00] LABS: FREE T4 1.21 NG/DL (0.89-1.76)
[2025-09-25 11:02] LABS: BASO # 0.1 10^3/uL (0.0-0.2); BASO % 0.9 % (0.0-1.0); EOS # 0.1 10^3/uL (0.0-0.5); EOS % 1.4 % (0.0-3.0); LYMPH # 1.8 10^3/uL (1.5-5.0); LYMPH % 24.3 % (24.0-44.0); MONO # 0.8 10^3/uL (0.0-0.8); MONO % 10.8 % (2.0-8.0); NEUTROPHILS # 4.6 10^3/uL (1.5-8.5); NEUTROPHILS % 62.2 % (36.0-66.0); PLATELET COUNT, AUTOMATED 291 10^3/uL (150-450)
[2025-09-25 11:31] LABS: ESTIMATED AVERAGE GLUCOSE 117.0 MG/DL (60-110)
== END ==
LOC: M PLALAB 08:19
PROVIDERS: ATTEND Physician Assistant Medical
DX: Z12.11 Encounter for screening for malignant neoplasm of colon (principal)